=== PATIENT | male | born 1950 | race Caucasian/White ===

== ENCOUNTER 2022-11-30 09:19 | Outpatient (OUT) | payer MEDICARE, SELFPAY ==
[2022-11-30 09:55] LABS: Basophils Absolute Auto 0.1 10^3/uL (0.0-0.1); Basophils Percent Auto 0.8 % (0.2-2.0); Eosinophils Absolute Auto 0.5 10^3/uL (0.0-0.7); Hematocrit 38.9 % (42.0-54.0); Hemoglobin 13.5 g/dL (14.0-18.0); Immature Granulocytes Abs Auto 0.02 10^3/uL (0.00-0.03); Immature Granulocytes Pct Auto 0.3 % (0.0-0.5); Lymphocytes Percent Auto 29.8 % (20.5-60.0); Mean Corpuscular HGB Conc 34.7 g/dL (29.9-35.2); Mean Corpuscular Hemoglobin 32.2 pg (25.9-34.0); Mean Corpuscular Volume 92.8 fL (80.0-94.0); Mean Platelet Volume 9.8 fL (9.5-13.5); Monocytes Absolute Auto 0.7 10^3/uL (0.3-0.8); Monocytes Percent Auto 11.3 % (1.7-12.0); Neutrophils Absolute Auto 3.3 10^3/uL (1.4-6.5); Neutrophils Percent Auto 50.8 % (43.0-75.0); Platelet Count 226 10^3/uL (150-450); Red Blood Count 4.19 10^6/uL (4.70-6.10); Red Cell Distribution Width 12.8 % (11.0-15.0); White Blood Count 6.6 10^3/uL (4.0-11.0)
[2022-11-30 10:45] LABS: Alanine Aminotransferase 30 U/L (16-63); Albumin Globulin Ratio 0.9; Albumin Level 3.3 g/dL (3.4-5.0); Alkaline Phosphatase 73 U/L (46-116); Anion Gap 11.2; Aspartate Amino Transferase 23 U/L (15-37); BUN Creatinine Ratio 18.8; Calcium 8.9 mg/dL (8.5-10.1); Carbon Dioxide 28.4 mmol/L (21.0-32.0); Chloride 106 mmol/L (98-107); Chol HDL Ratio 2.2; Cholesterol 126 mg/dL (<=200); Estimated GFR (African America >60 (>=60); Estimated GFR (Non-African Ame >60 (>=60); Globulin 3.5 g/dL; Glucose 99 mg/dL (74-106); HDL Cholesterol 56 mg/dL (40-60); LDL Cholesterol Calculated 57.6 mg/dL; Potassium 3.6 mmol/L (3.5-5.1); Sodium 142 mmol/L (136-145); Total Protein 6.8 g/dL (6.4-8.2); Triglycerides 62 mg/dL (<=150); VLDL CHOLESTEROL 12.4 mg/dL
[2022-11-30 11:10] LABS: Prostate Specific Antigen Scrn 0.56 ng/mL (<=4.00)
== END 2022-11-30 09:20 | disposition home or self-care (01) ==
LOC: LAB 09:24
PROVIDERS: PCP Family Medicine; Visit Provider Family Medicine
DX: I10 Essential (primary) hypertension (principal); I25.10 Atherosclerotic heart disease of native coronary artery without angina pectoris; Z12.5 Encounter for screening for malignant neoplasm of prostate
CPT/HCPCS: 36415; 80053; 80061; 85025; G0103

== ENCOUNTER 2023-02-10 02:05 | Emergency (ER) | payer MEDICARE, SELFPAY ==
[2023-02-10 02:11] VITALS: BP 174/94; PULSE 81; RESP 16; TEMP 36.7; O2SAT 97
--- NOTE | 2023-02-10 02:44 | PC.NURSE ---
RIGHT HAND HAS LARGE HEMATOMA ON DORSUM ASPECT FROM DIRECT BLOW. PMS INTACT . SOME BLANCHING ON HAND NOTED BUT GOOD CAP REFILL FULL SENSATION AND RADIAL PULSE
--- NOTE | 2023-02-10 02:46 | XR_ITS ---
[facility] [place] [id number] Patient Name: BRYANT FOREMAN MRN: [id number] date: 1950 Sex: M Assigned Patient Location: ER Current Patient Location: Accession/Order Number: [id number] Exam Date: 02/10/2023 03:15 Report Date: 02/10/2023 04:03 At the request of: MAN CASTORENA Procedure: XR hand RT 2V EXAM: XR hand RT 2V HISTORY: injury COMPARISON: None. TECHNIQUE: 2 views of the right hand were obtained. FINDINGS: No acute fracture or dislocation is seen. There are scattered degenerative changes. There is marked soft tissue edema at the dorsal aspect of the right hand. No soft tissue air is seen. XR/XR hand RT 2V IMPRESSION: 1. Marked soft tissue edema at the dorsal aspect of the right hand with no acute osseous abnormality or soft tissue air seen. Electronically authenticated by: Soo AGUIAR Date: 02/10/2023 04:03
--- NOTE | 2023-02-10 02:46 | ED.UPPEXIN1 ---
HPI - Extremity Injury (Upper) General Chief Complaint: Extremity Injury, Upper Stated Complaint: ABCESS ON RIGHT HAND Time Seen by Provider: 02/10/23 02:42 Source: patient Mode of arrival: walk-in Limitations: no limitations History of Present Illness HPI narrative: patient states he bump the back of his hand about 10 days ago. Developed acute swelling of the dorsum of his hand. 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 States he came in tonight because the hand woke him up and people have been telling him he needed to get it drained. No fever or chills. He takes plavix complaint: injury to: Reports hand Related Data Home Medications Medication Instructions Recorded Confirmed amlodipine 10 mg tablet mg 02/10/23 atorvastatin 80 mg tablet mg 02/10/23 carvedilol 25 mg tablet mg 02/10/23 clopidogrel 75 mg tablet mg 02/10/23 losartan 100 mg tablet mg 02/10/23 Allergies Allergy/AdvReac Type Severity Reaction Status Date / Time No Known Drug Allergies Allergy Verified 02/10/23 02:17 Review of Systems ROS Status of ROS 10 or more systems reviewed and unremarkable except as noted in history and below [facility] Social History Smoking status: Never smoker Exam Constitutional Vital Signs, click to edit/add: Last Vital Signs Temp 98.0 F 02/10/23 02:11 Pulse 81 02/10/23 02:11 Resp 16 02/10/23 02:11 BP 174/94 H 02/10/23 02:11 Pulse Ox 97 02/10/23 02:11 O2 Del Method Room Air 02/10/23 02:11 Common normals: no apparent distress, average body habitus, oriented x3, no limitations, healthy appearing, alert and well nourished Eye Common normals: EOMs intact bilaterally and conjunctivae normal Respiratory Common normals: normal respiratory effort, no retractions and no use of accessory muscles Cardio Common normals: regular rate, regular rhythm, S1 normal heart sound and S2 normal heart sound Extremity Other: dorsum right hand with large brian ball hematoma overlying the dorsum of the hand. Has faint ecchymosis of his fingers and even his wrist. Site is not warm and only mildly tender. FROM of fingers without discomfort Neuro Common normals: oriented x3, CN's II-XII intact bilaterally, moves all extremities and no focal motor deficits Psych Appearance: grossly normal Course Vital Signs Vital signs: Vital Signs Temperature 98.0 F 02/10/23 02:11 Pulse Rate 81 02/10/23 02:11 Respiratory Rate 16 02/10/23 02:11 Blood Pressure 174/94 H 02/10/23 02:11 Pulse Oximetry 97 02/10/23 02:11 Oxygen Delivery Method Room Air 02/10/23 02:11 Temperature 98.0 F 02/10/23 02:11 Pulse Rate 81 02/10/23 02:11 Respiratory Rate 16 02/10/23 02:11 Blood Pressure 174/94 H 02/10/23 02:11 Pulse Oximetry 97 02/10/23 02:11 Oxygen Delivery Method Room Air 02/10/23 02:11 MDM - Extremity Injury (Upper) MDM Narrative Medical decision making narrative: patient presents with a large hematoma dorsum of the right hand from injury that occurred 10 days ago. comes in now because people have been telling him he needs to get it drained and tonight the pain woke him up xray is neg. WBC normal and CRP elevated. Patient informed of the diagnosis of hematoma and referred to orthopedics Lab Data Labs: Lab Results 02/10/23 Range/Units 03:00 WBC 8.3 (4.0-11.0) 10^3/uL RBC 4.08 L (4.70-6.10) 10^6/uL Hgb 13.2 L (14.0-18.0) g/dL Hct 38.3 L (42.0-54.0) % MCV 93.9 (80.0-94.0) fL MCH 32.4 (25.9-34.0) pg MCHC 34.5 (29.9-35.2) g/dL RDW 13.0 (11.0-15.0) % Plt Count 253 (150-450) 10^3/uL MPV 9.7 (9.5-13.5) fL Neut % (Auto) 48.3 (43.0-75.0) % Lymph % (Auto) 34.3 (20.5-60.0) % [place] % (Auto) 11.4 (1.7-12.0) % Eos % (Auto) 5.1 (0.9-7.0) % Baso % (Auto) 0.8 (0.2-2.0) % Neut # (Auto) 4.0 (1.4-6.5) 10^3/uL Lymph # (Auto) 2.8 (1.2-3.8) 10^3/uL [place] # (Auto) 0.9 H (0.3-0.8) 10^3/uL Eos # (Auto) 0.4 (0.0-0.7) 10^3/uL Baso # (Auto) 0.1 (0.0-0.1) 10^3/uL Abs Immat Gran (auto) 0.01 (0.00-0.03) 10^3/uL Imm/Tot Granulo (auto) 0.1 (0.0-0.5) % Sodium 142 (136-145) mmol/L Potassium 3.2 L (3.5-5.1) mmol/L Chloride 106 (98-107) mmol/L Carbon Dioxide 27.6 (21.0-32.0) mmol/L Anion Gap 11.6 BUN 18.0 (7.0-18.0) mg/dL Creatinine 1.16 (0.70-1.30) mg/dL Est GFR ( Amer) >60 (>=60) Est GFR (Non-Af Amer) >60 (>=60) BUN/Creatinine Ratio 15.5 Glucose 107 H (74-106) mg/dL Calcium 8.9 (8.5-10.1) mg/dL C-Reactive Protein 0.94 H (<=0.50) mg/dL Discharge Plan Discharge Chief Complaint: Extremity Injury, Upper Clinical Impression: Hematoma of right hand Patient Disposition: Home, Self-Care Prescriptions / Home Meds: No Action atorvastatin 80 mg tablet carvedilol 25 mg tablet clopidogrel 75 mg tablet amlodipine 10 mg tablet losartan 100 mg tablet Instructions: Hematoma (ED) Additional Instructions: follow up with Dr Fitzpatrick saturday Stand Alone Forms: Portal Instructions Referrals: Patsy Escalante MD [Primary Care Provider] - 1 week
[2023-02-10 03:11] LABS: Basophils Absolute Auto 0.1 10^3/uL (0.0-0.1); Basophils Percent Auto 0.8 % (0.2-2.0); Eosinophils Absolute Auto 0.4 10^3/uL (0.0-0.7); Eosinophils Percent Auto 5.1 % (0.9-7.0); Hematocrit 38.3 % (42.0-54.0); Hemoglobin 13.2 g/dL (14.0-18.0); Immature Granulocytes Abs Auto 0.01 10^3/uL (0.00-0.03); Immature Granulocytes Pct Auto 0.1 % (0.0-0.5); Lymphocytes Absolute Auto 2.8 10^3/uL (1.2-3.8); Lymphocytes Percent Auto 34.3 % (20.5-60.0); Mean Corpuscular HGB Conc 34.5 g/dL (29.9-35.2); Mean Corpuscular Hemoglobin 32.4 pg (25.9-34.0); Mean Corpuscular Volume 93.9 fL (80.0-94.0); Mean Platelet Volume 9.7 fL (9.5-13.5); Monocytes Absolute Auto 0.9 10^3/uL (0.3-0.8); Monocytes Percent Auto 11.4 % (1.7-12.0); Neutrophils Percent Auto 48.3 % (43.0-75.0); Platelet Count 253 10^3/uL (150-450); Red Blood Count 4.08 10^6/uL (4.70-6.10); White Blood Count 8.3 10^3/uL (4.0-11.0)
[2023-02-10 03:26] LABS: Anion Gap 11.6; BUN Creatinine Ratio 15.5; Calcium 8.9 mg/dL (8.5-10.1); Carbon Dioxide 27.6 mmol/L (21.0-32.0); Chloride 106 mmol/L (98-107); Estimated GFR (African America >60 (>=60); Estimated GFR (Non-African Ame >60 (>=60); Glucose 107 mg/dL (74-106); Potassium 3.2 mmol/L (3.5-5.1); Sodium 142 mmol/L (136-145)
[2023-02-10 03:27] LABS: C Reactive Protein 0.94 mg/dL (<=0.50)
[2023-02-10 04:02] VITALS: BP 156/90; PULSE 73; RESP 16; O2SAT 98
== END 2023-02-10 04:05 | disposition home or self-care (01) ==
PROVIDERS: Emergency Provider Internal Medicine; PCP Family Medicine
DX: S60.221A Contusion of right hand, initial encounter (principal); W22.8XXA Striking against or struck by other objects, initial encounter; Z79.02 Long term (current) use of antithrombotics/antiplatelets; Z79.899 Other long term (current) drug therapy
CPT/HCPCS: 36415; 73120; 80048; 85025; 86140; 99284

== ENCOUNTER 2023-11-29 09:11 | Outpatient (OUT) | payer MEDICARE, SELFPAY ==
--- OUTSIDE RECORDS SUMMARY | 2023-11-29 09:17 | XMS_ITS | CCD ---
Author Organization [facility] Care Team Providers Care Client Service Associate Name Role Phone DR CANDY ESCALANTE Admitting Unavailable TAWANA, DR GUPTA Attending Unavailable TAWANA, DR PATSY San[facility] Unavailable TAWANA, DR PATSY Sanabria Consulting Unavailable TAWANA, DR PATSY [facility] Unavailable JOSE C, DR AYALA Admitting Unavailable JOSE C, DR AYALA Attending Unavailable JOSEC, DR AYALA Consulting Unavailable KING, DR ZHOU So Consulting Unavailable Ptasy Escalante Unavailable BHASKAR CARSON Attending Unavailable BHASKAR CARSON Attending Unavailable Medications Current Medications Medication Drug Class(es) Dates Sig (Normalized) Sig (Original) amLODIPine 10 mg oral tablet (2 sources) Dihydropyridine Calcium Channel Tan Start: 06-07-2023 take 10 mg by mouth once daily Amlodipine Active 10 MG PO Daily June 07, 2023 12:00am take 1 tablet by carl th every twenty-four hours amLODIPine Besylate 10 MG 1 tablet Orall y Once a day Active Aspir-81 (1 source) Aspir-81 Active aspirin 81 mg oral tablet (1 source) Platelet Aggregation Inhibitor, Nonsteroidal Anti-inflammatory Drug Start: 4 take 81 mg by mouth once daily Aspirin Active 81 MG PO Daily June 07, 2023 12:00am atorvastatin 80 mg oral tablet (3 sources) HMG-CoA Reductase Inhibitor Start: 4 End: 4 take 80 mg by mouth once daily Atorvastatin Active 80 MG PO Daily May 30, 2023 9:42pm Atorvastatin Benji cium 80 MG TAKE 1 TABLET DAILY for 90 Active carvedilol 25 mg oral tablet (2 sources) alpha-Adrenergic Tan, beta-Adrenergic Tan Start: 06-07-2023 take 25 mg by mouth twice daily Carvedilol Active 25 MG PO Twice daily June 07, 2023 12:00am take 1 tablet by carl th every twelve hours Carvedilol 25 MG 1 tablet with food Oral ly Twice a day Active clopidogrel 75 mg oral tablet (2 sources) P2Y12 Platelet Inhibitor Start: 06-07-2023 take 75 mg by mouth once daily Clopidogrel Active 75 MG PO Daily June 07, 2023 12:00am take 1 tablet by carl th every twenty-four hours Clopidogrel Bisulfate 75 MG 1 tablet Orally Once a day Active Fish Oils (1 source) take 1 capsule by mouth once daily Fish Oil 1000 MG 1 capsule Orally Once a day Active losartan potassium 100 mg oral tablet (2 sources) Angiotensin 2 Receptor Tan Start: 06-07-2023 take 100 mg by mouth once daily Losartan Active 100 MG PO Daily June 07, 2023 12:00am take 1 tablet by carl th every twenty-four hours Losartan Potassium 100 MG 1 tablet Orally Once a day Active Lecanto-3 Fatty Acids (1 source) Start: 06-07-2023 take 1000 mg by mout h once daily Lecanto-3 Fatty Acids Active 1000 MG PO Daily June 07, 2023 12:00am Problems Active Problems Problem Classification Problem Date Documented Date Episodic/Chronic Acute myocardial infarction (2 sources) Acute myocardial infarction, unspecified; Translations: [Acute myocardial infarction, unspecified] Onset: 08-01-2022 Chronic Coronary atherosclerosis and other heart disease (10 sources) Atherosclerotic heart disease of [place] coronary artery without angina pectoris; Translations: [Silent myocardial ischemia] Onset: 08-03-2021 Chronic Disorders of lipid metabolism (2 sources) Mixed hyperlipidemia; Translations: [Mixed hyperlipidemia] Onset: 08-01-2022 Chronic Essential hypertension (9 sources) Essential (primary) hypertension; Translations: [Essential hypertension] Onset: 12-08-2021 Chronic Other screening for suspected conditions (not mental disorders or infectious disease) (2 sources) Encounter for screening for malignant neoplasm of prostate; Translations: [ENC SCREEN MALIG NEOPLASM PROSTATE] Onset: 12-12-2021 Episodic Residual codes; unclassified (1 source) Edema; Translations: [Localized edema] Episodic Past or Other Problems Problem Classification Problem Date Documented Da te Episodic/Chronic Residual codes; unclassified (2 sources) Localized edema; Translations: [Localized edema] Onset: 08-01-2022 Episodic Results Test Name Value Interpretation Reference Range Facil ity Office Visiton 07-24-2023 Follow-up visit [id number] Bryant Foreman 1950 M Date Provider Department Center 07/24/2023 BHASKAR MARTINEZ [facility] Family History Problem Relation Age of Onset Coronary artery disease Other Diabetes Other Family Status - Relation Status Age at Other Level of Service:49687 PA OFFICE/OUTPATIENT ESTABLISHED LOW MDM 20 MIN Reason for Visit and Comments: Follow-up [104358] - Yearly follow up Normal [facility] Office Visiton 08-01-2022 Follow-up visit [id number] Bryant Foreman 1950 M Date Provider Department Center 08/01/2022 BHASKAR MARTINEZ Hos Family History Problem Relation Age of Onset Coronary artery disease Other Diabetes Other Family Status - Relation Status Age at Other Level of Service:76876 PA OFFICE/OUTPATIENT ESTABLISHED MOD MDM 30-39 MIN Normal [facility] CBC AUTO DIFFon 12-08-2021 BASO # 0.1 103/ul Normal 0.0-0.1 [facility] Comment on above: Performed By: #### C BC #### [facility] [address] [place] [address] Dr. Rajat Arora Basophils/100 WBC (Bld) 0.6 % Normal 0.2-2.0 [facility] Comment on above: Performed By: #### C BC #### [facility] [address] [place] [address] Dr. Rajat Arora EO # 0.4 103/ul Normal 0.0-0.7 [facility] Comment on above: Performed By: #### C BC #### [facility] [address] [place] [address] Dr. Rajat Arora Eosinophils/100 WBC (Bld) 4.8 % Normal 0.9-7.0 [facility] Comment on above: Performed By: #### C BC #### [facility] [address] [place] [address] Dr. Rajat Arora Erythrocyte distribution width (RBC) [Ratio] 13.0 % Normal 11.0-15.0 [facility] Comment on above: Performed By: #### C BC #### [facility] [address] [place] [address] Dr. Rajat Arora Hematocrit (Bld) [Volume fraction] 40.1 % Critically low 42.0-54.0 [facility] Comment on above: Performed By: #### C BC #### [facility] [address] [place] [address] Dr. Rajat Arora Hemoglobin (Bld) [Mass/Vol] 14.1 g/dL Normal 14.0-18.0 [facility] Comment on above: Performed By: #### C BC #### [facility] [address] [place] [address] Dr. Rajat Arora IG # 0.02 10e3/ul Normal 0.00-0.03 [facility] Comment on above: Performed By: #### C BC #### [facility] [address] [place] [address] Dr. Rajat Arora IG % 0.3 % Normal 0.0-0.5 [facility] Comment on above: Performed By: #### C BC #### [facility] [address] [place] [address] Dr. Rajat Arora LYMPH # 2.2 103/ul Normal 1.2-3.8 [facility] Comment on above: Performed By: #### C BC #### [facility] [address] [place] [address] Dr. Rajat Arora Lymphocytes/100 WBC (Bld) 27.3 % Normal 20.5-60.0 [facility] Comment on above: Performed By: #### C BC #### [facility] [address] [place] [address] Dr. Rajat Arora MANUAL DIFF REQ NO Normal [facility] Comment on above: Performed By: #### C BC #### [facility] [address] [place] [address] Dr. Rajat Arora MCH (RBC) [Entitic mass] 32.7 pg Normal 25.9-34.0 [facility] Comment on above: Performed By: #### C BC #### [facility] [address] [place] [address] Dr. Rajat Arora MCHC (RBC) [Mass/Vol] 35.2 g/dL Normal 29.9-35.2 [facility] Comment on above: Performed By: #### C BC #### [facility] [address] [place] [address] Dr. Rajat Arora MCV (RBC) [Entitic vol] 93.0 fL Normal 80.0-94.0 [facility] Comment on above: Performed By: #### C BC #### [facility] [address] [place] [address] Dr. Rajat Arora MONO # 0.7 103/ul Normal 0.3-0.8 [facility] Comment on above: Performed By: #### C BC #### [facility] [address] [place] [address] Dr. Rajat Arora Monocytes/100 WBC (Bld) 9.1 % Normal 1.7-12.0 [facility] Comment on above: Performed By: #### C BC #### [facility] [address] [place] [address] Dr. Rajat Arora NEUT # 4.6 103/ul Normal 1.4-6.5 [facility] Comment on above: Performed By: #### C BC #### [facility] [address] [place] [address] Dr. Rajat Arora Neutrophils/100 WBC (Bld) 57.9 % Normal 43.0-75.0 [facility] Comment on above: Performed By: #### C BC #### [facility] [address] [place] [address] Dr. Rajat Arora Platelet mean volume (Bld) [Entitic vol] 9.7 fL Normal 9.5-13.5 [facility] Comment on above: Performed By: #### C BC #### [facility] [address] [place] [address] Dr. Rajat Arora PLT 236 103/ul Normal 150-450 [facility] Comment on above: Performed By: #### C BC #### [facility] [address] [place] [address] Dr. Rajat Arora RBC 4.31 106/ul Critically low 4.70-6.10 [facility] Comment on above: Performed By: #### C BC #### [facility] [address] [address] [address] Rajat Arora WBC 8.0 103/ul Normal 4.0-11.0 [facility] Comment on above: Performed By: #### C BC #### [facility] [address] [address] [address] Rajat Arora LIPID PROFILEon 12-08-2021 CHOL-HDL RATIO NORM SEE BELOW Normal [facility] Comment on above: Result Comment: 3.3 - 4.4 LOW RISK 4.4 - 7.1 AVERAGE RISK 7.1 - 11.0 MODERATE RISK >11.0 HIGH RISK Performed By: #### L IPID, CMP #### [facility] [address] [place] [address] Dr. Rajat Arora Cholesterol [Mass/Vol] 132 mg/dL Normal <=200 [facility] Comment on above: Performed By: #### L IPID, CMP #### [facility] [address] [place] [address] Dr. Rajat Arora Cholesterol in HDL [Mass/Vol] 56 mg/dL Normal 40-60 [facility] Comment on above: Performed By: #### L IPID, CMP #### [facility] [address] [place] [address] Dr. Rajat Arora Cholesterol in LDL [Mass/Vol] 61.2 mg/dL Normal [facility] Comment on above: Performed By: #### L IPID, CMP #### [facility] [address] [place] [address] Dr. Rajat Arora Cholesterol.total/ Cholesterol in HDL [Mass ratio] 2.4 {ratio} Normal [facility] Comment on above: Performed By: #### L IPID, CMP #### [facility] [address] [place] [address] Dr. Rajat Arora HDL NORMAL > or = 60 mg/dl - LOW CARDIOVASCULAR RISK <40 mg/dl - HIGH CARDIOVASCULAR RISK Normal [facility] Comment on above: Performed By: #### L IPID, CMP #### [facility] [address] [place] [address] Dr. Rajat Arora LDL CALC NORMAL SEE BELOW Normal [facility] Comment on above: Result Comment: <100 mg/dl OPTIMAL 100 - 129 mg/dl NEAR OR ABOVE OPTIMAL 130 - 159 mg/dl BORDERLINE HIGH 160 - 189 mg/dl HIGH >190 mg/dl VERY HIGH Performed By: #### L IPID, CMP #### [facility] [address] [place] [address] Dr. Rajat Arora Triglyceride [Mass/Vol] 74 mg/dL Normal <=150 [facility] Comment on above: Performed By: #### L IPID, CMP #### [facility] [address] [place] [address] Dr. Rajat Arora VLDL CALC 14.8 mg/dL Normal [facility] Comment on above: Performed By: #### L IPID, CMP #### [facility] [address] [place] [address] Dr. Rajat Arora PROF 14(COMP METB)on 022 Albumin [Mass/Vol] 3.5 g/dL Normal 3.4-5.0 [facility] Comment on above: Performed By: #### L IPID, CMP #### [facility] [address] [place] [address] Dr. Rajat Arora Albumin/Globulin [Mass ratio] 1.0 {ratio} Normal [facility] Comment on above: Performed By: #### L IPID, CMP #### [facility] [address] [place] [address] Dr. Rajat Arora ALP [Catalytic activity/Vol] 88 U/L Normal 46-116 [facility] Comment on above: Performed By: #### L IPID, CMP #### [facility] [address] [place] [address] Dr. Rajat Arora ALT [Catalytic activity/Vol] 37 U/L Normal 16-63 [facility] Comment on above: Performed By: #### L IPID, CMP #### [facility] [address] [place] [address] Dr. Rajat Arora Anion gap [Moles/Vol] 8.1 mmol/L Normal [facility] Comment on above: Performed By: #### L IPID, CMP #### [facility] [address] [place] [address] Dr. Rajat Arora AST [Catalytic activity/Vol] 21 U/L Normal 15-37 [facility] Comment on above: Performed By: #### L IPID, CMP #### [facility] [address] [place] [address] Dr. Rajat Arora Bilirubin [Mass/Vol] 0.9 mg/dL Normal 0.2-1.0 [facility] Comment on above: Performed By: #### L IPID, CMP #### [facility] [address] [place] [address] Dr. Rajat Arora Calcium [Mass/Vol] 8.7 mg/dL Normal 8.5-10.1 [facility] Comment on above: Performed By: #### L IPID, CMP #### [facility] [address] [place] [address] Dr. Rajat Arora Chloride [Moles/Vol] 107 mmol/L Normal 98-107 [facility] Comment on above: Performed By: #### L IPID, CMP #### [facility] [address] [place] [address] Dr. Rajat Arora CO2 [Moles/Vol] 29.5 mmol/L Normal 21.0-32.0 [facility] Comment on above: Performed By: #### L IPID, CMP #### [facility] [address] [place] [address] Dr. Rajat Arora Creatinine [Mass/Vol] 1.01 mg/dL Normal 0.70-1.30 [facility] Comment on above: Performed By: #### L IPID, CMP #### [facility] [address] [place] [address] Dr. Rajat Arora EGFR-AF ICELANDIC >60 Normal >=60 [facility] Comment on above: Performed By: #### L IPID, CMP #### [facility] [address] [place] [address] Dr. Rajat Arora EGFR-NON AF ICELANDIC >60 Normal >=60 [facility] Comment on above: Performed By: #### L IPID, CMP #### [facility] [address] [place] [address] Dr. Rajat Arora Globulin (S) [Mass/Vol] 3.6 g/dL Normal [facility] Comment on above: Performed By: #### L IPID, CMP #### [facility] [address] [place] [address] Dr. Rajat Arora Glucose [Mass/Vol] 113 mg/dL Critically high 74-106 [facility] Comment on above: Performed By: #### L IPID, CMP #### [facility] [address] [place] [address] Dr. Rajat Arora Potassium [Moles/Vol] 3.6 mmol/L Normal 3.5-5.1 [facility] Comment on above: Performed By: #### L IPID, CMP #### [facility] [address] [place] [address] Dr. Rajat Arora Protein [Mass/Vol] 7.1 g/dL Normal 6.4-8.2 [facility] Comment on above: Performed By: #### L IPID, CMP #### [facility] [address] [place] [address] Dr. Rajat Arora Sodium [Moles/Vol] 141 mmol/L Normal 136-145 [facility] Comment on above: Performed By: #### L IPID, CMP #### [facility] [address] [place] [address] Dr. Rajat Arora Urea nitrogen [Mass/Vol] 15.0 mg/dL Normal 7.0-18.0 [facility] Comment on above: Performed By: #### L IPID, CMP #### [facility] [address] [place] [address] Dr. Rajat Arora Urea nitrogen/Creatinin e [Mass ratio] 14.9 mg/mg Normal [facility] Comment on above: Performed By: #### L IPID, CMP #### [facility] [address] [address] [address] 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 Admission #: [id number] Family : Order #: [id number] CLICK HERE TO VIEW EXAM RADIOLOGY REPORT PROCEDURE: RADIONUCLIDE IMAGING STRESS/REST MULTI COMPARISON: None. INDICATIONS: Chest pain, silent myocardial ischemia TECHNIQUE: Exam Description: Stress/Rest one day protocol gated SPECT Rest Imagin.8 mCi Tc-99m Cardiolite IV on 08/03/2021 Stress Imaging 30.3 mCi Tc-99m Cardiolite IV on 08/03/2021 Exercise Protocol: Benji Heart Rate (bpm): Rest: 62 Max: 106 PMHR: 70 Blood Pressure: Rest: 150/82 Max: 182/90 Exercise Time: Minutes: 6 Seconds: 00 Stage Reached: Stage: 2 Mets 7.0 Symptoms: Rest and peak stress ECG findings were non-diagnostic and the exercise portion of the study was Non-diagnostic per attending physician Dr. Victor Hugo eLi . For more details please see separate cardiac stress test report. FINDINGS: QUALITY OF STUDY: Excellent. PERFUSION DEFECT: None. LOCATION: N/A SIZE: N/A. SEVERITY: N/A. TYPE: N/A. WALL MOTION: Normal. LV SIZE: Normal. 101 mL. TID / TCD: None; 1.0 LVEF: Normal. Calculated EF 65%. SUMMARY: Myocardial perfusion imaging study is NORMAL. CONCLUSION: 1. Normal nuclear medicine myocardial perfusion scan. Dictated by: Zhou Dubon M.D. on 08/04/2021 at 09:38 Approved by: Zhou Dubon M.D. on 08/04/2021 at 09:[address] [facility] Coding Summary.on 07-28-2020 Coding Summary. CD:[id number] Gh0bWw+PGhlYWQ+PE1FV TJgU38apFLstZ7LY3uHH J4PPEYCMSJDWH1QQY6vh HW1DUxlM9FarmKb JgxjoRPlGE33AUn7HXQ0 iYdpSExbyD2qkNKjT1u5 JyVqOG27uQ70FHlvPANc JdG3SnQvludbyKHy S1nzTxFhdWNgEmt+PHRh YmxlIHdpZHRoPScxMDAl DwRjvSmoOM5fNa8oABRn LWNvbGxhcHNlOiBj e2ntNQEiHNegEI6mgEgu B2ZcuDN5UGOkh7v5Iy52 dHI+KKJfSIB5eImsALjp b884MbPjk4tfZZM4 bNOtBVcyHYG1I31qy5Y1 MBClTQOgWIM4uCY1hN8t gMsvcfcvE5HmqZKpDbQ2 BOY7dPXkfR2itPao wlumoS4eOul+J58PPW1F QPVRQZ8VXzt2D7YcBoxk dHI+HJ98MHHhHX40uQFx vOPop8bqlIs9NgMp ZKQaNSQ1fMwrRAiit7Zu XFCgW02nbFEfv9X4MSQv pNdezWDcJyGkoIC1xR8d EMyuguiyc2cliani Jxiuw0zbxj25wN18M66k KJiwAENxYUI5OUEnWKIq nNldey2xbR5cHy7+IDxj e1zds5zuuWw5AaMx BVHeqcNzyKueHIB1p7Wc Iw09U9WjgCmip5TbYcb7 jo21jVIut6N8lQZ7MXfd SFOnuR0qPNywCoY7 WFPkKvBvlO43jRXzCHoi Nz9zlVgtkCbzQZ7cDZFf bwlzKZQpsJ3qXLOjrVTy sWlcWZ3vLALcsksr e812TrJvHGA3CRTygNWe O7GxiP0qRkTqFOAkKRMn G2BzvRKnHGgtC969SNng BbF0YVPpqkPfO0Lh ECOhgKonEcJ2b2O3Fz7A v3WcukpfRCB9CDexPIY1 JiC6OqOlBqM2A5UeKlo6 YFIshYrlPK7kV1En TYWdscdyhlljnVM8GUDf OIBelO51dHBgITzdYi2s o1P3r339QPPhOJWifM86 Un7rsHhmNVKaxZOS yM0ilataq4tkpqvdBaNw JOCbCOt1GFw0QKLaxVmx ThUhSBV2JsZ5UVX6kMTu hJ8rmBvswwcpzY1u Oyc+Y08mdK0kSTD2QBT2 drcgKZJyenCdHR83XH49 H5VnEnuolCXehSS+PGRp ltQzyGrtTX0yAuHw b3hyg7LjBUceP2GjQDCa OXgfRfm4SMBcMRQ4cAJ0 nY2ySQHlFCxha2P6yWN3 B0KalmBarq8pe1ow BZPmHNwuU48imNQyy9Y4 HUTlrMU8HRSjmZbqUlZg oZ40Gie+IKYxaKvwb1Oj Xmydl4fnk0aovUr1 IjMwJSIgdmFsaWduPSJ0 r1KlKj48U98tTUieFCGo PDSvJDIhQCNqcMvmux8n kE7vYj8+PGNvbCB3 lMG8tC1uWGMpQzR6JDko U839GgJqnUFtWazhp3ru a5bfqKd0QoTjVLEcudVg cZcnVGK5j2JuLo77 G99sHWxzUNRlPRPxVTYx EYVblOppye2tbX4uGm9+ OZ0nm8jhsu21yX47dLO+ UANrWWJ6pCyqVDne RWKzqO5aYXtpQhH5EYZd LdSyjK14dSGxZYzwVf2r iSqoxJtzTO0dSLXgvcqg u583HyIwa3yaDLXr bGIkOHeqWOU4Z92lg0H5 AFTtCKJuQCI0yNW7cQ4i bGlnbjogbGVmdDsgdmVy rDioJFeiFZqqY545 IHRvcDsnPlBhdGllbnQg BtErLXs8D5BaGal6CPIf eVamLT0kwKPkPFdmAb6t bLwapEtjDS1aBTYy euvjb621YaIej3nhOZYx lPCpPMmeBAU6R56je7U6 QSSyBFNbUJV6jDY5gN7z bGlnbjogbGVmdDsg nzNbqBkhEOdyUEvuR432 IHRvcDsnPkJpcnRoIERh qEJ2ZV79MK40iTKvt4H3 cGD3M1GiJKAhnqxs tivcjIJ5HIAhODUcvM08 Fa7xnSjhUt7vUBKbYVD3 GHBrnTYgQ8XtcB8nAbPc TDIxMSMjJ5QeuBUx FOeyD069NHawGyX3ZSLy kxTeF0FeBORjkAfuVlN0 x8J3Uf7OJ0H0KQ93WI27 mGTns6E2qTE8Z6Jx AAEzjzeqllcyxZS0RLPn RXEkeY94Tl4zxKlcXf0m FKTzJWG7YGLacMIvJ5Yc lU7iJlNwXKWrGFYf K9HchTThIKtdR752MYhi JaI9CCEyosGtK2SeHABm qFuiHnX1n2K0Yy9CLLe1 ZG15RW45uWJtx5J7 lGR2Z4MiXBWyxsfmfoox lYM8DSTkKFEsjW66Pg4i iJtyQy7oKQWhSAV9KNNw dGMdT2JagQ7nHoQm YPYoFXPbR5XtrMFvRUdg H029RUvnGsI3QZHkloEo Z8HoIPGpcKxmYzL3k9H7 Nd7IFKFbTE71EWJ0 gTI6MA89YD04S8MsIxsh dGFibGU+PHRhYmxlIHdp ZHRoPScxMDAlJyBzdHls WV4mKb8tDSMyQNSv hEwdpOTuZuNbv9bhWYYm SEgvUW0mjUvkG4DxvFP4 JFFvw6r4Vb03M19eX4Qx dXA+AGSpwEQ4oVJ1 iW1gFdLsOmG6OWqpY780 SqNgiMBzHajvc2fho4ye dMa9LoB9FUTurdBqlEih LFV5h1EsMf09N83p IHdpZHRoPSIxNSUiIHZh dGqzpl9mdI6iLx4+PGNv bOJ1jLQ8uS3sErCgWuB8 CHwbG993KzAdmZTy Pzqlo0wts3svxKm4JnEr OAVfhmPzaAonRQP2h0Ik Uc41Y7SkzMdwe6JeAtv8 hv90hZFtj9J8sRH6 J6OtERMfdonkzLTdxMww XH8fCFFnyywlAXIwpD3k LIJiK3j4MrSdIuZ4QDiq E0XlrfY6HFMevHTp UGyvHZL2P20iv9J3ZZAr JRZiFQV0xPS6vK4yhBwh bjogbGVmdDsgdmVydGlj EApjQKyoU491LOLn gBopGCZpkA6tKEHceRAt sVjmQK7kKZThgthvQc3M IfRDJZLNSNCQKT9NSXHE HP23JH06nRDuo5Z2 zEA8P8SjLJAsygmqsqvz gKE5UGViFLTglR43rEJu NSjaIe8lg7K2y819LHCq TVToqQ87Kn5zzItz JYCfrAONjQ5kumsvd5qu rhpuEjPgYJIaHAj5PIv4 JEQufDghNrNbKWQ0HhT2 TME8cAOylN6rtBpr iuutmZ7aAut+MTEvMTUv VKf3IMkthEW+PHRkIHN0 rRvbSRfsHEFwdT0wXSRr H6a6VhKgKbC4OKeh C2OlPNFjbqppNv38tV5g KoJxUyE6TAqqC8QpeqN2 RNUewRJrSCudQJG8Z60d o0M0QZFqSCRjPSC8 tDT3dX2qvIsmgjtqbUTv dDsgdmVydGljYWwtYWxp L164JXXuoKzbRrB4TKcp DMKkQC77PX19bYUp r4L9tJJ5I9BlSRZhjpki kgptlBN0TPLbUTLtrM68 qNSvZFnmNe9wh6V5l662 TXTgISOtnL66Bl0w rGtbBDMmrMDStR7wabet o8phfeoiVbIqYMInYYu1 LQg6AGHtjXibNvMmMPX2 MeZ9GYJ4rEPmeS2y hJgabwjdmQ0gCzn+TWFs ZTwvdGQ+PLLuDMI1pGgz RCgaGFYrsH9iIOWcV1g7 ShOlUyC1VWmcS9Xg IVXiybpoMx83hK3gWrEt DcD7TIstQ7GhzxP0MRWj oSWzJDlsORZ9N54te6Q5 LTQpFLIeUCY4tWL3 zE8ttWqghanloPItzDje syMucLbuKAhyGSxoW701 SAZubFnrLq37lRFhbFcm amE6S6RzVjzysQZ+ UD52VBTcAP57vLCgrUZb r3xtwRi0LbWoGNSoQOH6 vFwnOAazd9NqSAQuA82x vXEic9M2OAYswXuf xWVvHiMpqJE0jZ4oRIda homut0kdlhkoVdbyb0mo vf58bC01T02tQUdrGLCs PSIzMCUiIHZhbGln mm3kpR3kNj6+PGNvbCB3 kZK6gG9uSwUuKcZ4COcz J754BuIibYBfImrop2nt g1rmfOa8DlKpWBYy isAyqDpiSXO9n7WqPc90 O26cQBswVWIuLUMaIPCl WYTilCehrz5szB9cLi6+ EM9qr4uzsl75pD32 dHI+REYaNZW5vEmlOJzm NJOrtX5oJOsnPvO4GHMf KvBocQ43oODpVLsbZo0h tLlznQsgOC4fZKVy veebc897EdIeo5xqYTVw oDBuTIzgNQU9C30mi3P4 AQDvFIVmXHT0iDC6zL7h bGlnbjogbGVmdDsg fuOtrTtlBSdjNQaoU962 VWBxkGtqKaFcbQUxT9bi jzRGFN5zOvtieXU+PHRk YDW5eKwxRLuaMVXg nD7pFEHkB7y3AiPyLgP0 TMuhP1GytpZ2KRWgbMQi JVDxnAGLlZ9tghmxn2nk cjogIzAwMDAwMDt0 GVu5ATGihUjkHvSeDBA5 KpB9SHW0uWAtkO9pfHnf qqfkyA9jJaz+RklOOjwv dGQ+BSLbOXP0dSfe PJuaJAQtqZ4wYBEsG4v7 LqIvHsC7USstV1IisaP0 FLWzoFAvQJFcjDLUnG2f hwcfx7waehcgLfDt SMIjQAl0VQd3REDcyOis VzJfNXP6OzV7GFR0bXAa uA2hkMejsbdgkW7fZej+ TVJOOjwvdGQ+PHRk RAK1lDcuGIdtTQZnxB1y EIOmG1s8IlTnShC6XHdz L4DwbtK8BHAwuDOtHTAp sQGNrC9pomvqn5fz yvfcVvExSMZmCIl1OUi9 PTHynBhjBuAmGJQ2XgX7 IRH7uSUugZ2lwEyrbjkb zU1fTrj+XRM9UEY4 KB21SY55B1XmTcwdhWVz bGU+PHRhYmxlIHdpZHRo ZNqyGPCzSgOqeYvkCN8u Bh3mPNOaXWIdpEnc cHNl (more content not included)... [facility] CRPon 07-19-2020 CRP [Mass/Vol] 0.6 mg/dL Normal <=1.9 [facility] Comment on above: Performed By: #### 2 [id number] #### [facility] [address] [place] [address] Consent for Treatmenton 07-02 Consent for Treatment [id number] #1.00CD:127 Normal [facility] Physician Orderon 07-19-2020 Physician Order [id number] #1.00CD:127 Normal [facility] Platelet Counton 07-19-2020 Platelets (Bld) [#/Vol] 268.0 E9/L Normal 150.0-500.0 [facility] Comment on above: Performed By: #### 2 [id number] #### [facility] [address] [place] [address] Sed Rate Automatedon 021 Sed Rate Automated 9 mm/hr Normal 0-19 [facility] Comment on above: Performed By: #### [id number] #### [facility] Laboratory [address] [place] [address] Vital Signs Date Time Vital Sign Value Performing Clinician Facility 06-11-2023 13:07040 Body height 176.53 cm [facility] 06-11-2023 13:070400 Body mass index (BMI) [Ratio] 30.7 kg/m2 [facility] 06-11-2023 13:07040 Body weight 95.76 kg [facility] 06-11-2023 13:07-0400 Diastolic blood pressure 68 mm[Hg] [facility] 06-11-2023 13:07-0400 Heart rate 65 /min [facility] 06-11-2023 13:07-0400 Systolic blood pressure 115 mm[Hg] [facility] 06-19-2022 14:30-0400 Body height 176.53 cm Patsy Escalante Other [facility] 06-19-2022 14:30-0400 Body mass index (BMI) [Ratio] 30.85 kg/m2 Patsy Escalante Other [facility] 06-19-2022 14:30-0400 Body weight 96.16 kg Patsy Escalante Other [facility] 06-19-2022 14:30-0400 Diastolic blood pressure 74 mm[Hg] Patsy Escalante Other [facility] 06-19-2022 14:30-0400 SaO2% (BldA) [Mass fraction] 97 % Patsy Escalante Other [facility] 06-19-2022 14:30-0400 Systolic blood pressure 124 mm[Hg] Patsy Escalante Other [facility] Other Encounters Encounter Date Encounter Type Care Provider Facility Start: 07-24-2023 End: 07-24-2023 ambulatory [facility] Start: 06-11-2023 End: 06-11-[address] [facility] Work Phone: Start: 06-11-2023 End: 06-11-2023 Patient encounter procedure [facility] Physician [facility] Work Phone: Start: 05-30-2023 Non-patient / Non-visit [facility] Physician [facility] [place] [employer] Work Phone: Start: 08-01-2022 End: 08-01-2022 ambulatory [facility] Start: 06-19-2022 End: 06-19-2022 ambulatory Patsy Escalante Other [facility] Start: 06-19-2022 Office outpatient vi sit 25 minutes Patsy Escalante [facility] Start: 12-08-2021 End: 12-09-[address] CANDY ESCALANTE Facility:[facility] Start: 08-03-2021 End: 08-04-[address] PATSY ESCALANTE Facility:[facility] Procedures Date Procedure Procedure Detail Performing Clinician Start: 12-08-[address] CANDY RUSH Comment on above: Performed By: #### P [facility] #### [facility] [address] [place] [address] Dr. Rajat Arora Immunizations Immunization Date Immunization Notes Care Provider Fa cility 12-25-2022 influenza virus vacc ine, unspecified formulation [facility] 12-21-2021 influenza virus vacc ine, unspecified formulation [facility] 12-13-2020 influenza virus vacc ine, unspecified formulation [facility] 06-07-2020 COVID-19 mRNA, Comir yamil (Pfizer) [facility] 05-16-2020 COVID-19 mRNA, Comir yamil (Pfizer) [facility] 12-15-2019 influenza virus vacc ine, unspecified formulation [facility] 12-16-2018 influenza virus vacc ine, unspecified formulation [facility] 06-24-2018 [facility] influenza virus vacc ine, unspecified formulation [facility] 06-18-2017 [facility] 12-11-2016 influenza virus vacc ine, unspecified formulation [facility] 12-13-2015 tetanus and diphther ia toxoids, adsorbed, preservative free, for adult use (5 Lf of tetanus toxoid and 2 Lf of diphtheria toxoid) [facility] 12-14-2014 tetanus and diphther ia toxoids, adsorbed, preservative free, for adult use (5 Lf of tetanus toxoid and 2 Lf of diphtheria toxoid) [facility] 12-15-2013 tetanus and diphther ia toxoids, adsorbed, preservative free, for adult use (5 Lf of tetanus toxoid and 2 Lf of diphtheria toxoid) [facility] 12-09-2012 tetanus and diphther ia toxoids, adsorbed, preservative free, for adult use (5 Lf of tetanus toxoid and 2 Lf of diphtheria toxoid) [facility] Payers Date Payer Category Payer Medicare [id number] 1958 Unknown [id number] 1950 Unknown [id number] 1950 Unknown [id number] Social History Date Type Detail Facility Unknown if ever smoked [facility] Other Sex Assigned At Sex Assigned At Bir th [facility] Other Start: 1950 Sex Assigned At Male [facility] Clinical Notes 06-19-2022 to 07-24-2023 Note Date & Type Note Facility 07-24-2023 Note Hypertension is unch anged. Continue current treatment regimen. Blood pressure will be reassessed at the next regular appointment. [facility] 07-24-2023 Note Coronary artery dise ase is unchanged. Continue current treatment regimen. Regular aerobic exercise. Continue current medications. Cardiac status will be reassessed in 1 year. [facility] 07-24-2023 Note Lipid abnormalities are unchanged. Very well controlled- liver function normal Lipids will be reassessed annually- sept per PCP [facility] 07-24-2023 Note [facility] CARDIOLOGY PROGR ESS NOTE HPI: Bryant Foreman is a 73 y.o. male here for Follow-up (Yearly follow up ) HPI routine f/U for CAD, silent OK, HTN, and HPL Denied chest pain, shortness of breath, orthopnea, or palpitations Overall states he is feeling very well and denied an activity limiting symptoms Review of Systems Constitutional: Negative. Respiratory: Negative. Cardiovascular: Negative. Neurological: Negative. All other systems reviewed and are negative. Visit Vitals BP 118/60 (BP Location: Left arm, Patient Position: Sitting, BP Cuff Size: Adult) Pulse 66 Resp 12 Ht 1.778 m (5' 10 ) Wt 93.1 kg (205 lb 3.2 oz) SpO2 97% BMI 29.44 kg/m??? Smoking Status Never BSA 2.14 m??? No Known Allergies Medications: Current Outpatient Medications on File Prior to Visit Medication Sig Dispense Refill amLODIPine (Norvasc) 10 mg tablet amlodipine 10 mg tablet aspirin 81 mg EC tablet Take 81 mg by mouth in the morning. atorvastatin (Lipitor) 80 mg tablet atorvastatin 80 mg tablet carvedilol (Coreg) 25 mg tablet Take 25 mg by mouth with breakfast and with evening meal. clopidogrel (Plavix) 75 mg tablet clopidogrel 75 mg tablet losartan (Cozaar) 100 mg tablet losartan 100 mg tablet nitroglycerin (Nitrostat) 0.4 mg SL tablet nitroglycerin 0.4 mg sublingual tablet No current facility-administered medications on file prior to visit. Physical Exam: Constitutional: Appearance: Normal appearance. Without apparent distress HENT: Head: Normocephalic and atraumatic. Nose: Nose normal. Mouth/Throat: Mouth: Mucous membranes are moist. Eyes: Extraocular Movements: Extraocular movements intact. Conjunctiva/sclera: Conjunctivae normal. Neck: Vascular: No JVD. Cardiovascular: Rate and Rhythm: Normal rate and regular rhythm. Pulses: Dorsalis pedis pulses are 3 on the right side and 3on the left side. Posterior tibial pulses are 3 on the right side and 3 on the left side. Heart sounds: Normal heart sounds, S1 normal and S2 normal. Pulmonary: Effort: Pulmonary effort is normal. Breath sounds: Normal breath sounds. Abdominal: General: Bowel sounds are normal. Palpations: Abdomen is soft. Musculoskeletal: General: Normal range of motion. Cervical back: Normal range of motion. Right lower leg: No edema. Left lower leg: No edema. Skin: General: Skin is warm and dry. Capillary Refill: Capillary refill takes less than 2 seconds. Neurological: General: No focal deficit present. Mental Status: he is alert and oriented to person, place, and time. Psychiatric: Mood and Affect: Mood normal. Behavior: Behavior normal. Thought Content: Thought content normal. Judgment: Judgment normal. Labs: Reviewed with pt 02/10/23 CBC stable Renal function normal 11/30/22 CBC stable Renal function normal LFT normal Chol 126, Trig 62, LDL 57.6, HDL 56 Last lab values have been reviewed [facility] Testin06/22/20 echo 12/04/2010 Heart cath/PCI 10/2010 heart cath/PCI Assessment/Plan: Mixed hyperlipidemia Lipid abnormalities are unchanged. Very well controlled- liver function normal Lipids will be reassessed annually- sept per PCP CAD in [place] artery Coronary artery disease is unchanged. Continue current treatment regimen. Regular aerobic exercise. Continue current medications. Cardiac status will be reassessed in 1 year. Benign essential HTN Hypertension is unchanged. Continue current treatment regimen. Blood pressure will be reassessed at the next regular appointment. [facility] 08-01-2022 Note States edema is abou t typical and no worse than usual [facility] 08-01-2022 Note stable [facility] 08-01-2022 Note Lipid abnormalities are well controlled Continue lipitor Liver function normal [facility] 08-01-2022 Note Coronary artery dise ase is stable without any concerning symptoms Continue GDMT- ASA, plavix, coreg and lipitor [facility] 08-01-2022 Note Hypertension is well controlled per Cardiac rehab log Continue amlodipine, coreg and losartan [facility] 08-01-2022 Note [facility]TP CARDIOLOGY PROGR ESS NOTE HPI: Bryant Foreman is a 72 y.o. male here for routine f/U for CAD, silent OK, HTN, and HPL Denied chest pain, shortness of breath, orthopnea, or palpitations Tolerating cardiac rehab well. B/P in cardiac rehab reviewed and remains well controlled per their log. Visit Vitals BP 141/86 (BP Location: Left arm, Patient Position: Sitting) Pulse 59 Ht 1.778 m (5' 10 ) Wt 96.6 kg (213 lb) SpO2 98% BMI 30.56 kg/m??? Smoking Status Never BSA 2.18 m??? No Known Allergies Medications: Current Outpatient Medications on File Prior to Visit Medication Sig Dispense Refill amLODIPine (Norvasc) 10 mg tablet amlodipine 10 mg tablet aspirin 81 mg EC tablet Take 81 mg by mouth in the morning. atorvastatin (Lipitor) 80 mg tablet atorvastatin 80 mg tablet carvedilol (Coreg) 25 mg tablet Take 25 mg by mouth with breakfast and with evening meal. clopidogrel (Plavix) 75 mg tablet clopidogrel 75 mg tablet losartan (Cozaar) 100 mg tablet losartan 100 mg tablet nitroglycerin (Nitrostat) 0.4 mg SL tablet nitroglycerin 0.4 mg sublingual tablet [DISCONTINUED] aspirin 325 mg tablet every other day. [DISCONTINUED] DOCOSAHEXAENOIC ACID ORAL Take by mouth in the morning. No current facility-administered medications on file prior to visit. Physical Exam: Constitutional: Appearance: Normal appearance. Without apparent distress HENT: Head: Normocephalic and atraumatic. Nose: Nose normal. Mouth/Throat: Mouth: Mucous membranes are moist. Eyes: Extraocular Movements: Extraocular movements intact. Conjunctiva/sclera: Conjunctivae normal. Neck: Vascular: No JVD. Cardiovascular: Rate and Rhythm: Normal rate and regular rhythm. Pulses: Dorsalis pedis pulses are 3 on the right side and 3on the left side. Posterior tibial pulses are 3 on the right side and 3 on the left side. Heart sounds: Normal heart sounds, S1 normal and S2 normal. Pulmonary: Effort: Pulmonary effort is normal. Breath sounds: Normal breath sounds. Abdominal: General: Bowel sounds are normal. Palpations: Abdomen is soft. Musculoskeletal: General: Normal range of motion. Cervical back: Normal range of motion. Right lower le-2+ edema. Left lower le-2+ edema. Skin: General: Skin is warm and dry. Capillary Refill: Capillary refill takes less than 2 seconds. Neurological: General: No focal deficit present. Mental Status: alert and oriented to person, place, and time. Psychiatric: Mood and Affect: Mood normal. Behavior: Behavior normal. Thought Content: Thought content normal. Judgment: Judgment normal. Labs: 12/08/21 CBC normal Renal function normal Liver function normal Chol 132, HDL 56, Trig 74, LDL 61.2- well controlled Last lab values have been reviewed CV Testin06/22/20 echo 12/04/2010 Heart cath/PCI 10/2010 heart cath/PCI No echocardiogram results found for the past 12 months Assessment/Plan: Benign essential HTN Hypertension is well controlled per Cardiac rehab log Continue amlodipine, coreg and losartan CAD in [place] artery Coronary artery disease is stable without any concerning symptoms Continue GDMT- ASA, plavix, coreg and lipitor Mixed hyperlipidemia Lipid abnormalities are well controlled Continue lipitor Liver function normal Silent myocardial infarction (CMS/HCC) stable Edema of lower extremity States edema is about typical and no worse than usual RTC 1 year [facility] 08-01-2022 Note Patient here for 1 y ear follow up CAD, hypertension, and hyperlipidemia. Had routine labs in Dec 2021. Still goes to cardiac rehab every Saturday. Denies chest pain and SOB. Does have some LE edema. Review of Systems All other systems reviewed and are negative. [facility] 06-19-2022 Evaluation note Encounter Date Diagnosis Assessment Notes Jun, Essential hypertension (ICD-10 - I10) GOAL: Maintain BP < 140/90. STATUS: achieved. TIME FRAME: Lifetime goal. Barriers: Non- identifed. Continue current regimen and a low Na+ diet. Regular CV exercise also encouraged. Jun, Coronary artery disease (ICD-10 - I25.10) Stable on present meds. Sees [facility] Cardio. Labs before next OV Jun, Screening PSA (prostate specific antigen) (ICD-10 - Z12.5) Due for lab in December. [facility] Other Evaluation noteNo assessment information available [facility] Work Phone: History general Narrative - Reported* Type Description Date Medical History Essential hypertension Medical History Coronary artery disease Medical History Edema of both lower extremities Medical History SERUM LIPIDS HIGH Surgical History CATH 1 STENT Surgical History STENT RCA Hospitalization History SEE SURGICAL HX [facility] Other Summary Purpose Family History No Family History Records Found Relationship Condition Age at Onset Recorded Date/T arley Not Specified Family history of colon cancer Unknown Malignant neoplasm Unknown Heart disease Unknown sister History of stroke Unknown Advance Directives No Advanced Directives Records Found Advance Directive Response Recorded Date/ Time Advance Directives No March 26, 2023 12:30pm Chief Complaint and Reason for Visit Chief Complaint Amb Documentation 6 MONTH CHECK UP Additional Source Comments (unrecognized sect ion and content) No Status Records FoundNo Status Records FoundNo Status Records Found INFORMATION SOURCE (unrecogn ized section and content) DATE CREATED AUTHOR [facility]31/2020 [facility] DATE CREATED AUTHOR AUTHOR'S ORGANIZ ATION 12/12/2021 Catalina Perez [facility] DATE CREATED AUTHOR AUTHOR'S ORGANIZ ATION 07/26/2023 [facility] REASON FOR VISIT (unrecogniz ed section and content) 6 MONTH FOLLOW UP MB Care Teams (unrecognized sec tion and content) Team Status: Active Member Role Status Dates Patsy Escalante MD Primary Care Provider Active Team Status: Active Member Role Status Dates Patsy Escalante MD Primary Care Provider Active Start: May 30, 2023 BRAYDON Guzman Attending Provider Active Start : May 30, 2023 Team Status: Inactive Member Role Status Dates Patsy Escalante MD Primary Care Provide r, Attending Provider Active Start: June 11, 2023 End: June 11, 2023 Goals (unrecognized section and content) Goals may be documented in a n alternate section FOR RECORDS PERTAINING TO PATIENTS WHO ARE OR HAVE BEEN ENROLLED IN A CHEMICAL DEPENDENCY/SUBSTANCEABUSE PROGRAM, SOME INFORMATION MAY BE OMITTED. This clinical summary was aggregated from multiple sources. Caution should be exercised in using it in the provision of clinical care. This summary normalizes information from multiple sources, and as a consequence, information in this document may materially change the coding, format and clinical context of patient data. In addition, data may be omitted in some cases. CLINICAL DECISIONS SHOULD BE BASED ON THE PRIMARY CLINICAL RECORDS. [employer] provides no warranty or guarantee of the accuracy or completeness of information in this document.
[2023-11-29 09:38] LABS: Basophils Absolute Auto 0.1 10^3/uL (0.0-0.1); Basophils Percent Auto 0.9 % (0.2-2.0); Eosinophils Absolute Auto 0.4 10^3/uL (0.0-0.7); Eosinophils Percent Auto 5.2 % (0.9-7.0); Hematocrit 41.9 % (42.0-54.0); Hemoglobin 14.3 g/dL (14.0-18.0); Immature Granulocytes Abs Auto 0.02 10^3/uL (0.00-0.03); Immature Granulocytes Pct Auto 0.3 % (0.0-0.5); Lymphocytes Absolute Auto 2.1 10^3/uL (1.2-3.8); Lymphocytes Percent Auto 30.9 % (20.5-60.0); Mean Corpuscular HGB Conc 34.1 g/dL (29.9-35.2); Mean Corpuscular Hemoglobin 31.6 pg (25.9-34.0); Mean Corpuscular Volume 92.7 fL (80.0-94.0); Mean Platelet Volume 9.9 fL (9.5-13.5); Monocytes Absolute Auto 0.8 10^3/uL (0.3-0.8); Monocytes Percent Auto 11.2 % (1.7-12.0); Neutrophils Absolute Auto 3.6 10^3/uL (1.4-6.5); Neutrophils Percent Auto 51.5 % (43.0-75.0); Platelet Count 270 10^3/uL (150-450); Red Blood Count 4.52 10^6/uL (4.70-6.10); White Blood Count 6.9 10^3/uL (4.0-11.0)
[2023-11-29 10:01] LABS: Alanine Aminotransferase 36 U/L (16-63); Albumin Level 3.7 g/dL (3.4-5.0); Alkaline Phosphatase 96 U/L (46-116); Anion Gap 10.1; Aspartate Amino Transferase 25 U/L (15-37); BUN Creatinine Ratio 16.3; Bilirubin Total 0.8 mg/dL (0.2-1.0); Calcium 9.2 mg/dL (8.5-10.1); Carbon Dioxide 29.6 mmol/L (21.0-32.0); Chloride 105 mmol/L (98-107); Chol HDL Ratio 2.3; Cholesterol 142 mg/dL (<=200); Estimated GFR (African America >60 (>=60); Estimated GFR (Non-African Ame 58 (>=60); Globulin 3.6 g/dL; Glucose 108 mg/dL (74-106); HDL Cholesterol 62 mg/dL (40-60); Potassium 3.7 mmol/L (3.5-5.1); Sodium 141 mmol/L (136-145); Total Protein 7.3 g/dL (6.4-8.2); Triglycerides 53 mg/dL (<=150); VLDL CHOLESTEROL 10.6 mg/dL
[2023-11-29 10:16] LABS: Prostate Specific Antigen Scrn 1.02 ng/mL (<=4.00)
== END 2023-11-29 09:12 | disposition home or self-care (01) ==
LOC: LAB 09:12
PROVIDERS: PCP Family Medicine; Visit Provider Family Medicine
DX: I25.10 Atherosclerotic heart disease of native coronary artery without angina pectoris (principal); I10 Essential (primary) hypertension; Z12.5 Encounter for screening for malignant neoplasm of prostate
CPT/HCPCS: 36415; 80053; 80061; 85025; G0103

== ENCOUNTER 2024-04-25 01:34 | Emergency (ER) | payer MEDICARE, SELFPAY ==
[2024-04-25] MEDS: LIDOCAINE HCL 2%-EPINEPHRINE 1:200,000 20 ML MDV 10 ML INJ (01:36)
[2024-04-25 01:39] VITALS: BP 160/84; PULSE 85; TEMP 37.1; O2SAT 97; BMI 28.3
--- OUTSIDE RECORDS SUMMARY | 2024-04-25 01:39 | XMS_ITS | CCD ---
Author Organization [facility] Care Team Providers Care Project Account Manager Name Role Phone DR CANDY ESCALANTE Admitting Unavailable TAWANA, DR GUPTA Attending Unavailable TAWANA, DR PATSY [facility] Unavailable TAWANA, DR PATSY Sanabria Consulting Unavailable TAWANA, DR PATSY [facility] Unavailable JOSE C, DR AYALA Admitting Unavailable JOSE C, DR AYALA Attending Unavailable JOSE C, DR AYLAA Consulting Unavailable KING, DR ZHOU So Consulting Unavailable Patsy Escalante Unavailable BHASKAR CARSON Attending Unavailable BHASKAR CARSON Attending Unavailable Medications Current Medications Medication Drug Class(es) Dates Sig (Normalized) Sig (Original) amLODIPine 10 mg oral tablet (3 sources) Dihydropyridine Calcium Channel Tan Start: 06-07-2023 take 10 mg by mouth once daily Amlodipine Active 10 MG PO Daily June 07, 2023 12:00am take 1 tablet by carl th every twenty-four hours amLODIPine Besylate 10 MG 1 tablet Orall y Once a day Active Aspir-81 (1 source) Aspir-81 Active aspirin 81 mg oral tablet (2 sources) Platelet Aggregation Inhibitor, Nonsteroidal Anti-inflammatory Drug Start: 4 take 81 mg by mouth once daily Aspirin Active 81 MG PO Daily June 07, 2023 12:00am atorvastatin 80 mg oral tablet (5 sources) HMG-CoA Reductase Inhibitor Start: 4 End: 4 take 80 mg by mouth once daily Atorvastatin Active 80 MG PO Daily May 30, 2023 9:42pm Atorvastatin Benji cium 80 MG TAKE 1 TABLET DAILY for 90 Active carvedilol 25 mg oral tablet (4 sources) alpha-Adrenergic Tan, beta-Adrenergic Tan Start: 06-07-2023 End: 07-08-2023 take 25 mg by mouth twice daily Carvedilol Active 25 MG PO Twice daily 180 July 08, 2023 12:47pm take 1 tablet by carl th every twelve hours Carvedilol 25 MG 1 tablet with food Oral ly Twice a day Active clopidogrel 75 mg oral tablet (5 sources) P2Y12 Platelet Inhibitor Start: 06-07-2023 End: 11-11-2023 take 75 mg by mouth once daily Clopidogrel Active 75 MG PO Daily November 11, 2023 9:43pm take 1 tablet by carl th every twenty-four hours Clopidogrel Bisulfate 75 MG 1 tablet Orally Once a day Active Fish Oils (1 source) take 1 capsule by mouth once daily Fish Oil 1000 MG 1 capsule Orally Once a day Active losartan potassium 100 mg oral tablet (4 sources) Angiotensin 2 Receptor Tan Start: 06-07-2023 End: 09-02-2023 take 100 mg by mouth once daily Losartan Active 100 MG PO Daily September 02, 2023 10:34am take 1 tablet by carl th every twenty-four hours Losartan Potassium 100 MG 1 tablet Orally Once a day Active Keota-3 Fatty Acids (2 sources) Start: 06-07-2023 take 1000 mg by mout h once daily Keota-3 Fatty Acids Active 1000 MG PO Daily June 07, 2023 12:00am Problems Active Problems Problem Classification Problem Date Documented Date Episodic/Chronic Acute myocardial infarction (2 sources) Acute myocardial infarction, unspecified; Translations: [Acute myocardial infarction, unspecified] Onset: 08-01-2022 Chronic Coronary atherosclerosis and other heart disease (11 sources) Atherosclerotic heart disease of [place] coronary artery without angina pectoris; Translations: [Silent myocardial ischemia] Onset: 08-03-2021 Chronic Disorders of lipid metabolism (2 sources) Mixed hyperlipidemia; Translations: [Mixed hyperlipidemia] Onset: 08-01-2022 Chronic Essential hypertension (10 sources) Essential (primary) hypertension; Translations: [Essential hypertension] Onset: 12-08-2021 Chronic Other screening for suspected conditions (not mental disorders or infectious disease) (3 sources) Encounter for screening for malignant neoplasm of prostate; Translations: [Patient encounter status] Onset: 12-12-2021 Episodic Residual codes; unclassified (1 source) Edema; Translations: [Localized edema] Episodic Past or Other Problems Problem Classification Problem Date Documented Da te Episodic/Chronic Residual codes; unclassified (2 sources) Localized edema; Translations: [Localized edema] Onset: 08-01-2022 Episodic Results Test Name Value Interpretation Reference Range Facility Basophils Auto (Bld) [#/Vol] on 11-29-2023 Basophils (Bld) [#/Vol] 0.1 10 3/uL 0.0-0.1 [facility] Basophils/100 WBC Auto (Bld) on 11-29-2023 Basophils/100 WBC (Bld) 0.9 % 0.2-2.0 [facility] Cholesterol in LDL Calc [Mas s/Vol]on 11-29-2023 Cholesterol in LDL [Mass/Vol] 70.0 mg/dL [facility] Comment on above: <100 mg/dl [id number] 0-129 mg/dl NEAR OR ABOVE [id number] mg/dl BORDERLINE IRET666-101 mg/dl HIGH>190 mg/dl VERY HIGH Cholesterol in VLDL Calc [Ma ss/Vol]on 11-29-2023 Cholesterol in VLDL [Mass/Vol] 10.6 mg/dL [facility] Eosinophils/100 WBC Auto (Bl d)on 11-29-2023 Eosinophils/100 WBC (Bld) 5.2 % 0.9-7.0 [facility] Erythrocyte distribution wid th Auto (RBC) [Ratio]on 11-29-2023 Erythrocyte distribution width (RBC) [Ratio] 13.0 % 11.0-15.0 [facility] Estimated glomerular filtrat ion rate (GFR) non- Americanon 11-29-2023 GFR/1.73 sq M.predicted among non-blacks MDRD (S/P/Bld) [Vol rate/Area] 58 mL/min/{1.73_m2} Low >=60 [facility] Globulin Calc (S) [Mass/Vol] on 11-29-2023 Globulin (S) [Mass/Vol] 3.6 g/dL [facility] Hematocrit Auto (Bld) [Volum e fraction]on 11-29-2023 Hematocrit (Bld) [Volume fraction] 41.9 % Low 42.0-54.0 [facility] Hemoglobin [Mass/volume] in Bloodon 11-29-2023 Hemoglobin (Bld) [Mass/Vol] 14.3 g/dL 14.0-18.0 [facility] Laboratory - Chemistry and C hemistry - challengeon 11-29-2023 Albumin [Mass/Vol] 3.7 g/dL 3.4-5.0 [facility] ALP [Catalytic activity/Vol] 96 U/L 46-116 [facility] ALT [Catalytic activity/Vol] 36 U/L 16-63 [facility] AST [Catalytic activity/Vol] 25 U/L 15-37 [facility] Bilirubin [Mass/Vol] 0.8 mg/dL 0.2-1.0 [facility] Calcium [Mass/Vol] 9.2 mg/dL 8.5-10.1 [facility] Chloride [Moles/Vol] 105 mmol/L 98-107 [facility] Cholesterol [Mass/Vol] 142 mg/dL <=200 [facility] Cholesterol in HDL [Mass/Vol] 62 mg/dL High 40-60 [facility] Comment on above: > or =60 mg/dl - LOW CARDIOVASCULAR RISK<40 mg/dl - HIGH CARDIOVASCULAR RISK CO2 [Moles/Vol] 29.6 mmol/L 21.0-32.0 [facility] Creatinine [Mass/Vol] 1.23 mg/dL 0.70-1.30 [facility] GFR/1.73 sq M.predicted MDRD (S/P/Bld) [Vol rate/Area] mL/min/{1.73_m2} >=60 [facility] Glucose [Mass/Vol] 108 mg/dL High 74-106 [facility] Potassium [Moles/Vol] 3.7 mmol/L 3.5-5.1 [facility] Protein [Mass/Vol] 7.3 g/dL 6.4-8.2 [facility] Sodium [Moles/Vol] 141 mmol/L 136-145 [facility] Triglyceride [Mass/Vol] 53 mg/dL <=150 [facility] Urea nitrogen [Mass/Vol] 20.0 mg/dL High 7.0-18.0 [facility] Urea nitrogen/Creatinine [Mass ratio] 16.3 mg/mg [facility] Laboratory - Hematology and Cell countson 11-29-2023 Immature granulocytes/100 WBC (Bld) 0.3 % 0.0-0.5 [facility] Leukocytes [#/volume] correc marie for nucleated erythrocytes in Blood by Automated counon 11-29-2023 WBC corrected for nucl RBC Auto (Bld) [#/Vol] 6.9 10 3/uL 4.0-11.0 [facility] Lymphocytes Auto (Bld) [#/Vo l]on 11-29-2023 Lymphocytes (Bld) [#/Vol] 2.1 10 3/uL 1.2-3.8 [facility] Lymphocytes/100 WBC Auto (Bl d)on 11-29-2023 Lymphocytes/100 WBC (Bld) 30.9 % 20.5-60.0 [facility] MCH Auto (RBC) [Entitic mass ]on 11-29-2023 MCH (RBC) [Entitic mass] 31.6 pg 25.9-34.0 [facility] MCHC Auto (RBC) [Mass/Vol]on 11-29-2023 MCHC (RBC) [Mass/Vol] 34.1 g/dL 29.9-35.2 [facility] MCV Auto (RBC) [Entitic vol] on 11-29-2023 MCV (RBC) [Entitic vol] 92.7 fL 80.0-94.0 [facility] Monocytes Auto (Bld) [#/Vol] on 11-29-2023 Monocytes (Bld) [#/Vol] 0.8 10 3/uL 0.3-0.8 [facility] Monocytes/100 WBC Auto (Bld) on 11-29-2023 Monocytes/100 WBC (Bld) 11.2 % 1.7-12.0 [facility] Neutrophils Auto (Bld) [#/Vo l]on 11-29-2023 Neutrophils (Bld) [#/Vol] 3.6 10 3/uL 1.4-6.5 [facility] Neutrophils/100 WBC Auto (Bl d)on 11-29-2023 Neutrophils/100 WBC (Bld) 51.5 % 43.0-75.0 [facility] No Panel Informationon 11-28 Eosinophils # (Auto) 0.4 10 3/uL 0.0-0.7 [facility] Immature Granulocyte # (Auto) 0.02 10 3/uL 0.00-0.03 [facility] Prostate Specific Antigen Screen 1.02 ng/mL <=4.00 [facility] Platelet mean volume Auto (B ld) [Entitic vol]on 11-29-2023 Platelet mean volume (Bld) [Entitic vol] 9.9 fL 9.5-13.5 [facility] Platelets Auto (Bld) [#/Vol] on 11-29-2023 Platelets (Bld) [#/Vol] 270 10 3/uL 150-450 [facility] RBC Auto (Bld) [#/Vol]on RBC (Bld) [#/Vol] 4.52 10 6/uL Low 4.70-6.10 [facility] Serum or plasma albumin/glob ulin mass ratioon 11-29-2023 Albumin/Globulin [Mass ratio] 1.0 {ratio} [facility] Serum or plasma anion gap de terminationon 11-29-2023 Anion gap [Moles/Vol] 10.1 mmol/L Fi [facility] Serum or plasma total choles terol/high density lipoprotein (HDL) cholesterol mass rachel 11-29-2023 Cholesterol.total/Cho lesterol in HDL [Mass ratio] 2.3 {ratio} [facility] Comment on above: 3.3 - 4.4 LOW RISK4. 4 - 7.1 AVERAGE RISK7.1 - 11.0 MODERATE RISK>11.0 HIGH RISK Office Visiton 07-24-2023 Follow-up visit [id number] Bryant Foreman Vannessa 1950 M Date Provider Department Center 07/24/2023 BHASKAR MARTINEZ Family History Problem Relation Age of Onset Coronary artery disease Other Diabetes Other Family Status - Relation Status Age at Other Level of Service:94817 [facility] OFFICE/OUTPATIENT ESTABLISHED LOW MDM 20 MIN Reason for Visit and Comments: Follow-up [380954] - Yearly follow up Normal [facility] Office Visiton 08-01-2022 Follow-up visit [id number] Bryant Foreman Vannessa 1950 Date Provider Department Center 08/01/2022 BHASKAR MARTINEZ Family History Problem Relation Age of Onset Coronary artery disease Other Diabetes Other Family Status - Relation Status Age at Other Level of Service:28065 [facility] OFFICE/OUTPATIENT ESTABLISHED MOD MDM 30-39 MIN Normal [facility] CBC AUTO DIFFon 12-08-2021 BASO # 0.1 103/ul Normal 0.0-0.1 [facility] Comment on above: Performed By: #### C BC #### [facility] [address] [address] [address] Rajat Arora Basophils/100 WBC (Bld) 0.6 % Normal 0.2-2.0 [facility] Comment on above: Performed By: #### C BC #### [facility] [address] [address] [address] Rajat Arora EO # 0.4 103/ul Normal 0.0-0.7 [facility] Comment on above: Performed By: #### C BC #### [facility] [address] [place] [address] Dr. Rajat Arora Eosinophils/100 WBC (Bld) 4.8 % Normal 0.9-7.0 [facility] Comment on above: Performed By: #### C BC #### [facility] [address] [address] [address] Rajat Arora Erythrocyte distribution width (RBC) [Ratio] 13.0 % Normal 11.0-15.0 [facility] Comment on above: Performed By: #### C BC #### [facility] [address] [address] [address] Rajat Arora Hematocrit (Bld) [Volume fraction] 40.1 % Critically low 42.0-54.0 [facility] Comment on above: Performed By: #### C BC #### [facility] [address] [address] [address] Rajat Arora Hemoglobin (Bld) [Mass/Vol] 14.1 g/dL Normal 14.0-18.0 [facility] Comment on above: Performed By: #### C BC #### [facility] [address] [place] [address] Dr. Rajat Arora IG # 0.02 10e3/ul Normal 0.00-0.03 [facility] Comment on above: Performed By: #### C BC #### [facility] [address] [place] [address] Dr. Rajat Arora IG % 0.3 % Normal 0.0-0.5 [facility] Comment on above: Performed By: #### C BC #### [facility] [address] [place] [address] Dr. Rajat Arora LYMPH # 2.2 103/ul Normal 1.2-3.8 [facility] Comment on above: Performed By: #### C BC #### [facility] [address] [place] [address] Dr. Rajat Arora Lymphocytes/100 WBC (Bld) 27.3 % Normal 20.5-60.0 [facility] Comment on above: Performed By: #### C BC #### [facility] [address] [place] [address] Dr. Rajat Arora MANUAL DIFF REQ NO Normal [facility] Comment on above: Performed By: #### C BC #### [facility] [address] [place] [address] Dr. Rajat Arora MCH (RBC) [Entitic mass] 32.7 pg Normal 25.9-34.0 [facility] Comment on above: Performed By: #### C BC #### [facility] [address] [place] [address] Dr. Rajat Arora MCHC (RBC) [Mass/Vol] 35.2 g/dL Normal 29.9-35.2 [facility] Comment on above: Performed By: #### C BC #### [facility] [address] [place] [address] Dr. Rajat Arora MCV (RBC) [Entitic vol] 93.0 fL Normal 80.0-94.0 [facility] Comment on above: Performed By: #### C BC #### [facility] [address] [place] [address] Dr. Rajat Arora MONO # 0.7 103/ul Normal 0.3-0.8 [facility] Comment on above: Performed By: #### C BC #### [facility] [address] [address] [address] Rajat Arora Monocytes/100 WBC (Bld) 9.1 % Normal 1.7-12.0 [facility] Comment on above: Performed By: #### C BC #### [facility] [address] [address] [address] Rajat Arora NEUT # 4.6 103/ul Normal 1.4-6.5 [facility] Comment on above: Performed By: #### C BC #### [facility] [address] [address] [address] Rajat Arora Neutrophils/100 WBC (Bld) 57.9 % Normal 43.0-75.0 [facility] Comment on above: Performed By: #### C BC #### [facility] [address] [address] [address] Rajat Arora Platelet mean volume (Bld) [Entitic vol] 9.7 fL Normal 9.5-13.5 [facility] Comment on above: Performed By: #### C BC #### [facility] [address] [address] [address] Rajat Arora PLT 236 103/ul Normal 150-450 [facility] Comment on above: Performed By: #### C BC #### [facility] [address] [address] [address] Rajat Arora RBC 4.31 106/ul Critically low 4.70-6.[address] [facility] Comment on above: Performed By: #### C BC #### [facility] [address] [address] [address] Rajat Arora WBC 8.0 103/ul Normal 4.0-11.0 [facility] Comment on above: Performed By: #### C BC #### [facility] [address] [address] [address] Rajat Arora LIPID PROFILEon 12-08-2021 CHOL-HDL RATIO NORM SEE BELOW Normal [facility] Comment on above: Result Comment: 3.3 - 4.4 LOW RISK 4.4 - 7.1 AVERAGE RISK 7.1 - 11.0 MODERATE RISK >11.0 HIGH RISK Performed By: #### L IPID, CMP #### [facility] [address] [place] [address] Dr. Rajat Arora Cholesterol [Mass/Vol] 132 mg/dL Normal <=200 [facility] Comment on above: Performed By: #### L IPID, CMP #### [facility] [address] [place] [address] Dr. Rajat Arora Cholesterol in HDL [Mass/Vol] 56 mg/dL Normal 40-60 [facility] Comment on above: Performed By: #### L IPID, CMP #### [facility] [address] [place] [address] Dr. Rajat Arora Cholesterol in LDL [Mass/Vol] 61.2 mg/dL Normal [facility] Comment on above: Performed By: #### L IPID, CMP #### [facility] [address] [place] [address] Dr. Rajat Arora Cholesterol.total/Cho lesterol in HDL [Mass ratio] 2.4 {ratio} Normal [facility] Comment on above: Performed By: #### L IPID, CMP #### [facility] [address] [place] [address] Dr. Rajat Arora HDL NORMAL > or = 60 mg/dl - LOW CARDIOVASCULAR RISK <40 mg/dl - HIGH CARDIOVASCULAR RISK Normal [facility] Comment on above: Performed By: #### L IPID, CMP #### [facility] [address] [place] [address] Dr. Rajat Arora LDL CALC NORMAL SEE BELOW Normal [facility] Comment on above: Result Comment: <100 mg/dl OPTIMAL 100 - 129 mg/dl NEAR OR ABOVE OPTIMAL 130 - 159 mg/dl BORDERLINE HIGH 160 - 189 mg/dl HIGH >190 mg/dl VERY HIGH Performed By: #### L IPID, CMP #### [facility] [address] [place] [address] Dr. Rajat Arora Triglyceride [Mass/Vol] 74 mg/dL Normal <=150 [facility] Comment on above: Performed By: #### L IPID, CMP #### [facility] [address] [address] [address] Rajat Arora VLDL CALC 14.8 mg/dL Normal [facility] Comment on above: Performed By: #### L IPID, CMP #### [facility] [address] [address] [address] Rajat Arora PROF 14(COMP METB)on 022 Albumin [Mass/Vol] 3.5 g/dL Normal 3.4-5.0 [facility] Comment on above: Performed By: #### L IPID, CMP #### [facility] [address] [address] [address] Rajat Arora Albumin/Globulin [Mass ratio] 1.0 {ratio} Normal [facility] Comment on above: Performed By: #### L IPID, CMP #### [facility] [address] [place] [address] Dr. Rajat Arora ALP [Catalytic activity/Vol] 88 U/L Normal 46-116 [facility] Comment on above: Performed By: #### L IPID, CMP #### [facility] [address] [address] [address] Rajat Arora ALT [Catalytic activity/Vol] 37 U/L Normal 16-63 [facility] Comment on above: Performed By: #### L IPID, CMP #### [facility] [address] [place] [address] Dr. Rajat Arora Anion gap [Moles/Vol] 8.1 mmol/L Normal [facility] Comment on above: Performed By: #### L IPID, CMP #### [facility] [address] [place] [address] Dr. Rajat Arora AST [Catalytic activity/Vol] 21 U/L Normal 15-37 [facility] Comment on above: Performed By: #### L IPID, CMP #### [facility] [address] [place] [address] Dr. Rajat Arora Bilirubin [Mass/Vol] 0.9 mg/dL Normal 0.2-1.0 [facility] Comment on above: Performed By: #### L IPID, CMP #### [facility] [address] [address] [address] Rajat Arora Calcium [Mass/Vol] 8.7 mg/dL Normal 8.5-10.1 [facility] Comment on above: Performed By: #### L IPID, CMP #### [facility] [address] [address] [address] Rajat Arora Chloride [Moles/Vol] 107 mmol/L Normal 98-107 [facility] Comment on above: Performed By: #### L IPID, CMP #### [facility] [address] [place] [address] Dr. Rajat Arora CO2 [Moles/Vol] 29.5 mmol/L Normal 21.0-32.0 [facility] Comment on above: Performed By: #### L IPID, CMP #### [facility] [address] [place] [address] Dr. Rajat Arora Creatinine [Mass/Vol] 1.01 mg/dL Normal 0.70-1.30 [facility] Comment on above: Performed By: #### L IPID, CMP #### [facility] [address] [place] [address] Dr. Rajat Arora EGFR-AF CITIZEN [place] >60 Normal >=60 [facility] Comment on above: Performed By: #### L IPID, CMP #### [facility] [address] [place] [address] Dr. Rajat Arora EGFR-NON AF CITIZEN OF [place] >60 Normal >=60 [facility] Comment on above: Performed By: #### L IPID, CMP #### [facility] [address] [place] [address] Dr. Rajat Arora Globulin (S) [Mass/Vol] 3.6 g/dL Normal [facility] Comment on above: Performed By: #### L IPID, CMP #### [facility] [address] [place] [address] Dr. Raajt Arora Glucose [Mass/Vol] 113 mg/dL Critically high 74-106 [facility] Comment on above: Performed By: #### L IPID, CMP #### [facility] [address] [address] [address] Rajat Arora Potassium [Moles/Vol] 3.6 mmol/L Normal 3.5-5.1 [facility] Comment on above: Performed By: #### L IPID, CMP #### [facility] [address] [place] [address] Dr. Rajat Arora Protein [Mass/Vol] 7.1 g/dL Normal 6.4-8.2 [facility] Comment on above: Performed By: #### L IPID, CMP #### [facility] [address] [address] [address] Rajat Arora Sodium [Moles/Vol] 141 mmol/L Normal 136-145 [facility] Comment on above: Performed By: #### L IPID, CMP #### [facility] [address] [place] [address] Dr. Rajat Arora Urea nitrogen [Mass/Vol] 15.0 mg/dL Normal 7.0-18.0 [facility] Comment on above: Performed By: #### L IPID, CMP #### [facility] [address] [place] [address] Dr. Rajat Arora Urea nitrogen/Creatinine [Mass ratio] 14.9 mg/mg Normal [facility] Comment on above: Performed By: #### L IPID, CMP #### [facility] [address] [place] [address] Dr. 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 Admission #: [id number] Family : Order #: [id number] CLICK HERE TO VIEW EXAM RADIOLOGY REPORT [...] Non-diagnostic per attending physician Dr. Victor Hugo Lei . For more details please see separate [...] Dubon M.D. on 08/04/2021 at 09:39 Normal [facility] Coding Summary.on 07-28-2020 Coding Summary. CD:[id number] FJw9jRe+PGhlYWQ+PE1 LXVVbC40mqLQdzS4XB4 mKKJ6YMELOXCNFMY2FE A2erIV9KCqaM5KqtoXt VofepIDvQM97IRe3EQJ 7sLmdVDuriC6wiYCjW6 x6OtNkEI69cR79RBiyB IMcHcK8TaMbanvxuJQt Q6ftJuNdeXDdTsl+PHR hYmxlIHdpZHRoPScxMD VwUqAbuSqaZC1eDz1zZ GVyLWNvbGxhcHNlOiBj t6teAXBtKVpeVB4qmWm nR3NkoLJ9BCNcy1z1Mn 48dHI+IIMdQNT9zWumL Defp112VdYis1lzUKM2 lAVqSSswQEM9U29qc6Z 0XLNmWWHrHDE8fNO7xF 0lkOanejauM8TwjMNsS mU0MGD4kXKecL6qzUtv hplfxK8gNsz+E51BUC8 DQVCHQZ2FJsu1J2OsWo wvdHI+DE69HTOnCC53e NAanXKvr1woqYx3RlRo MJPqBUJ3sKytZVcqf4J gOVGhF18xuILrp2G7WM XqtEkffXXwJhCooHL3s V2aBVvoipxyu2xwelts Ahqen1wxha46gQ83R76 aQEqmMULeSOM3TIPhZV ZonGmxbk5ypB1mGt4+I Gcrv6fsc2dfmQq2IhYn DVExxtVefXsaVRB9x6N gEh92W1PqwAgfb5KcAq z5qk51fDZif5Q9nFN9O OulOXEphF2hLGxuUfA6 LNGqTpYzeM53qDHsPIf dEg3fkWelqBjyOK2oWJ XykannSPBvpG4vACMfw RYpaAhhZP9dKXHnkitc l976NjKtXHJ4QPWffCZ iR4BvfK1zFeAfXXDkHK SmO6TsvTJmPTohY218W SfmPlW2KTCetaFoP6Vj FTOkgGymGbN8v9B6Bh2 En4JafuewNLT7YQmyXU I2EgW8XkQmKqW9K3HgQ ur3ECSqqLfnJM5tR1Us IHUkhxmruijzoNY8HMV yMGGufE78uLKmXXagTm 7ad9Z5j583UAFxMFVrr E32Ak5giVkdAQZpiNRT kE3hfzmsh3dsetinCgE uVQLzCAm3UBs4UZHznE qgPgNbYWR5GiF4TUK9g XHksJ3ilAqoqnupiT6s Oyc+R32opG3tSTP5JDZ 8lilkUFImrdChYL02VU 92W3NfZyvbiRJjnHA+P USdwvLmuLrqOZ9kOdWj w7vvi4QxOYmnQ4IfJSW pLAimXlk1JNQiLLL5iQ T1sK5dZISwKBukk5K5n ZJ2Q3JofnZqzk0wl5mi HZUaKKpfW75hzXTgk8W 5QLSnmNT2DHZdyVvbSb PyaN81Vuz+PGNvbGdyb 4OuPgeow3zqe4lxyKw2 IjMwJSIgdmFsaWduPSJ 8e4BsDp17X00yCMtbFI RoPSIxNSUiIHZhbGlnb j8rbH1rLj6+PGNvbCB3 fYY6vM7dBMFzVsG1QFq wS108RtXkeAVeKngke8 svd9jsnZw0AbRkBECin wTrsOvqIZQ7c7CxUc41 S10mYMnkFPBkGOVyMPE cMZEunKzuja1hgO3aCc 8+ND9tg6czdi34tD37g HI+NSAuGAR0gDelXBtb XIJnsL0dFFmeOrB4OJA pUlZhcU28bKAdTWdyUd 7tjEflyQloNX6iRUCvg xiqj102CpMxy5rnTGXl vCYwCXgqIYU4O49ra1R 7GBRtAPXrKTT8fJH0lI 1hbGlnbjogbGVmdDsgd wFesYzcPJnuWBunH660 IHRvcDsnPlBhdGllbnQ uUlBaGHq5E7LbYlo8HT YzzDrxPR7dgREcPQekI q9bfSrekZugVU9zPNVv mlcbs741ZqRcy9cmKVC quGPjPIgfPTA8U86nn1 W8BNZtKJCeZYL0zRT4q H4avCnakssztTOdmQtk ilRlgWhhKYdjCXepZ23 6IHRvcDsnPkJpcnRoIE ArmLP1GI59SX68xPAeu 2B5yKE0E1EvRWGzbscn szutuPM9UGUtJJEjyR1 3Dj1buNmjCx3zZQXqZW S0STJyqEOoP5OyxG8pO jHhXLKoPHSyV8UenIPt AMmqE187JGthBkZ4DEJ luaLxI1CqDMNbzTnqAy L0a4E2Jx6OA9U4BQ05N E44oNNgh0P8lXL0U1Wd LQZojdxslcttpVJ2DEF uXNAlpO39Dw8wkQwtSd 4iFMHyNYJ9CLPuxONsI 8QluH6qLpIyJMRuXZMz Q6IzmFXaHMdvR704UCn xZtF1FCRzzxOeI4AdAS DjbHlfVdT0j3M9Sd3HR Nx2HI92QY50jYCqj1T9 lPI2H1QaTLYsupyrhwi ycOU5KHOxKHLjwM51Qx 6caLrvDz3eXKYgVUP5Z SSaxPGaJ0JxcH1uClWu XEUyVJZjY9CzcTYkWDo kN517DAejIiB3RXOiwu SnB4QrPGPfiRtbIdL0m 4J1Yf6JPKZpYC25UGG3 bSP6CZ17LC46S9IrXgp vdGFibGU+PHRhYmxlIH dpZHRoPScxMDAlJyBzd ZzrDJ2pJy2pKAWzVOPn oScigYApCvJzk9swCMI fPPqqRW8naGqmQ7CtqG S3VRLdl7d1Vl90X94xP 3JvdXA+UNSdoQO3rJA4 gO5uGbImUnD4QDcyH08 1LpCceLEkUdomm8vpf8 tdoAd7MuM0KSViymOlr FuxBYQ8n2NbXj54Z89h IHdpZHRoPSIxNSUiIHZ njBgrdm1wzA0rBp3+PG UaiMZ2vZW3tZ8cIjLuB wK8JYjuU543EjKmfKBu Zyqdg3vjx9wtbMn2VlE nICAkygYpnFnoBOD2c6 OjIx57S6GyxUvin1MkV yh2jq21hUUkh9U4zKJ9 R5RxYFNodarlvMZszEo gLA6gXLOmrbhvVDRxwR 0vEXQeE1f8SfMxUgC5C EqaV5HlojP5SJIhzNPg ZVzzZGS3D31pp2I8DPQ yMVFnSKX6wPE8jD5uqM lnbjogbGVmdDsgdmVyd YluIXwbYOpdR220ZIOi hWtkNBIukF4yANNwsRK xpFbeHE5gLVQgszveKg 8UUaCTFRROWWTWAN8UZ ISALZ78UI91sMFgl3Y2 tGE8T2XjPXHyuszbaok gpYV5AXLoZDShvQ98dF BuXWhlSd6at0U6o451N SRmJZYwqV34Iu2ozQtt PLCbxYNXoP2gwnowe3p exzxqNoEsYQUuTOx9YE z5SNHriDxsEoBmQWR6V vE9DBA2nETmbX9rhRgs izzfhW5cFpr+MTEvMTU jJPp5NNuatSV+PHRkIH Y8uDccDTetYNBsqN6sW DWcL9t8OfTpZeE3EVgr G2XaDNLcirapJc19uW1 iRzAzBbI5AWgeH5Ejwu P4CNUmeZZhMDhlIRV2Q 04ai5I3RZBkLCDfZFZ1 yLO6iR9wbVfnpjddiCG mdDsgdmVydGljYWwtYW gfB023EAThzVteXsQ1S ZycDXVhOV14HL02jSTe o9D1fFY0V5VaKYDpjmg wzthbkLX0MMQyHWUsdF 61rAZuZArvEc3pn4T3e 361FODqJAAgqA56Zo6p sSpxSQRkiDFIwI5tdeg ni9qknhszTfVvZVHnFE q3SRu1XTAiaWgcPiIxQ XV2NvE7SVS4pLAhkB6l oNtjmqynhC4oNwy+TWF sZTwvdGQ+TZPyMCS7zN gvIOfxNUVtpX5cKHTeU 9x3NgPcEbF6YQipN0Ar NEJlteoiHp77qW4iAjY jKxE1JFyrG6TvemU6IN XcnQIzUTxpWGS3F22jz 1I2FHFjUFPkXLL2aVA1 nN3vqNzusjfjbALhaLi gdmVydGljYWwtYWxpZ2 89TRCmlPfdBk43zBOav WknyuO0M6KbYgbczBD+ LF46MDGiFK92wIRmzSG ix5salTr7AsUwYJDoST E7pOywUYxyb2EbZBBqD 41arZHhd6N0DUUpaDut qOTrUgHobFC7kV5gHIe antvpv3zokdkmFjhhf4 wkgl41xU56O35jVBgsY HRoPSIzMCUiIHZhbGln rk6slZ2eWe1+PGNvbCB 1zIA3xD4aWlCdIpF9JJ kqL471BtRokSLdWsbyn 7yxy6sytNk9SmUjAKSp yfQeqGddNYV7d5GuEy4 5T16iXXsnVTXsYAXfKY HqKCUrkVyyng7rfA3rZ i8+YL5cq8iuze62xP78 dHI+YJKwYUE4hYrhLWh xLPLjwP5xNYvnMtT3GQ PlNaFzlB18tXQnFHxjQ n6fyZzfkQpkSR3eFCBm mhcjy103QsNxx9quQKY pkTGzVTajRQK0R66li6 P7WXChOYPtZPA3mTE9m R5jfUewhfybmBZdgIqx qfWvhYzuTLxeQWdpU31 4WTMuxCsiPiOpiGUxW8 ttraHBWH5gIwviiOA+P REsABK5rMooIEhyNLEt gR0hJXTkH4u6ClVoSwX 7MUclB2ArovV6FISetG DgCFFeqYFQhK0nuxibf 7rmludoInWhJLKiWEp1 OGo3SAPefNnnRfFeSTB 3LpR1DDN7zDAchH8jnZ kfjzbgeI8vZba+RklOO jwvdGQ+FWCyMWU1mAbd RGtdBZIsnE0kKLUdL0w 8BuYsLtX7KMmzF6Fkie M4LLDgrLRtCCKkaTJKc M9yecpfz8qsnucdLeWk RKDxEBz0NRc3PFPqhPu uFuMsRDB0SsX2GMY9wQ SufS2loAxwvnugeW7yV yc+TVJOOjwvdGQ+PHRk DLB2oGabTGjnZSWwbG3 oVNUhI8x4ObTaSiK0TZ ffI3NkovG0DDMcvZKcB LJstALHnQ1vetvzt9kp cshlCsNjBHHsCDm8MBx 3GOLonNfwPmCiHAH2Un X2QRH2iLHnlM0rgXfbx ynjrP1nZxb+URH1MMU8 TT94JC32E7ZwFbtfyKA ibGU+PHRhYmxlIHdpZH RoPScxMDAlJyBzdHlsZ J3zCu2yILMtFWTucAzo cHNl (more content not included)... Normal [facility] CRPon 07-19-2020 CRP [Mass/Vol] 0.6 mg/dL Normal <=1.9 [facility] Comment on above: Performed By: #### 2 [id number] #### [facility] [address] [place] [address] Consent for Treatmenton 07-02 Consent for Treatment [id number]#[id number]:127 Normal [facility] Physician Orderon 07-19-2020 Physician Order [id number] 25#1.00CD:127 Normal [facility] Platelet Counton 07-19-2020 Platelets (Bld) [#/Vol] 268.0 E9/L Normal 150.0-500.0 [facility] Comment on above: Performed By: #### 2 [id number] #### [facility] [address] [place] [address] Sed Rate Automatedon 021 Sed Rate Automated 9 mm/hr Normal 0-19 [facility] Comment on above: Performed By: #### 2 [id number] #### [facility] [address] [place] [address] Vital Signs Date Time Vital Sign Value Performing Clinician Facility 12-05-2023 13:25-0400 Body height 176.53 cm [facility] 12-05-2023 13:25-0400 Body mass index (BMI) [Ratio] 29.7 kg/m2 [facility] 12-05-2023 13:25-0400 Body weight 92.53 kg [facility] 12-05-2023 13:25-0400 Diastolic blood pressure 62 mm[Hg] [facility] 12-05-2023 13:25-0400 Heart rate 64 /min [facility] 12-05-2023 13:25-0400 Respiratory rate 16 /min [facility] 12-05-2023 13:25-0400 SaO2% (BldA) [Mass fraction] 97 % [facility] 12-05-2023 13:25-0400 Systolic blood pressure 118 mm[Hg] [facility] 06-11-2023 13:07-0400 Body height 176.53 cm [facility] 06-11-2023 13:07-0400 Body mass index (BMI) [Ratio] 30.7 kg/m2 [facility] 06-11-2023 13:07-0400 Body weight 95.76 kg [facility] 06-11-2023 13:07-0400 Diastolic blood pressure 68 mm[Hg] [facility] 06-11-2023 13:07-0400 Heart rate 65 /min [facility] 06-11-2023 13:07-0400 Systolic blood pressure 115 mm[Hg] [facility] 06-19-2022 14:30-0400 Body height 176.53 cm Patsy Escalante Other [employer] Other 06-19-2022 14:30-0400 Body mass index (BMI) [Ratio] 30.85 kg/m2 Patsy Escalante Other [employer] Other 06-19-2022 14:30-0400 Body weight 96.16 kg Patsy Escalante Other [employer] Other 06-19-2022 14:30-0400 Diastolic blood pressure 74 mm[Hg] Patsy Escalante Other [employer] Other 06-19-2022 14:30-0400 SaO2% (BldA) [Mass fraction] 97 % Patsy Escalante Other [employer] Other 06-19-2022 14:30-0400 Systolic blood pressure 124 mm[Hg] Patsy Escalante Other [employer] Other Encounters Encounter Date Encounter Type Care Provider Facility Start: 12-05-2023 End: 12-05-[address] [facility] Work Phone: Start: 12-05-2023 End: 12-05-2023 Patient encounter procedure [facility] Work Phone: Start: 11-29-2023 Non-patient / Non-visit [facility] [employer] Work Phone: Start: 07-24-2023 End: [facility] Start: 06-11-2023 End: 06-11-[address] [facility] Work Phone: Start: 06-11-2023 End: 06-11-2023 Patient encounter procedure [facility] Work Phone: Start: 05-30-2023 Non-patient / Non-visit [facility] [employer] Work Phone: Start: 08-01-2022 End: 08-01-2022 ambulatory BHASKAR CARSON [facility] Start: 06-19-2022 End: 06-19-2022 ambulatory Patsy Escalante Other [facility] [employer] Other Start: 06-19-2022 Office outpatient vi sit 25 minutes Patsy Escalante [facility] Start: 12-08-2021 End: 12-09-[address] CANDY ESCALANTE Facility:[facility] Start: 08-03-2021 End: 08-04-[address] PATSY ESCALANTE Facility:[facility] Procedures Date Procedure Procedure Detail Performing Clinician Start: 12-08-[address] CANDY RUSH Comment on above: Performed By: #### [facility] #### [facility] [address] [place] [address] Dr. Rajat Arora Immunizations Immunization Date Immunization Notes Care Provider Fa cili 12-05-2023 influenza, high dose seasonal, preservative-free [facility] 12-25-2022 influenza virus vacc ine, unspecified formulation [facility] 12-21-2021 influenza virus vacc ine, unspecified formulation [facility] 12-13-2020 influenza virus vacc ine, unspecified formulation [facility] 06-07-2020 COVID-19 mRNA, Comir yamil (Pfizer) [facility] 05-16-2020 COVID-19 mRNA, Comir yamil (Pfizer) [facility] 12-15-2019 influenza virus vacc ine, unspecified formulation [facility] 12-16-2018 influenza virus vacc ine, unspecified formulation [facility] 06-24-2018 pneumococcal polysaccharide vaccine, 23 valent [facility] 12-17-2017 influenza virus vacc ine, unspecified formulation [facility] 06-18-2017 pneumococcal conjuga te vaccine, 13 [facility] 12-11-2016 influenza virus vacc ine, unspecified formulation [facility] 12-13-2015 tetanus and diphther ia toxoids, adsorbed, preservative free, for adult use (5 Lf of tetanus toxoid and 2 Lf of diphtheria toxoid) [facility] 12-14-2014 tetanus and diphther ia toxoids, adsorbed, preservative free, for adult use (5 Lf of tetanus toxoid and 2 Lf of diphtheria toxoid) [facility] 12-15-2013 tetanus and diphther ia toxoids, adsorbed, preservative free, for adult use (5 Lf of tetanus toxoid and 2 Lf of diphtheria toxoid) [facility] 12-09-2012 tetanus and diphther ia toxoids, adsorbed, preservative free, for adult use (5 Lf of tetanus toxoid and 2 Lf of diphtheria toxoid) [facility] Payers Date Payer Category Payer Medicare [id number] 1958 Unknown [id number] 1950 Unknown [id number] 1950 Unknown [id number] Social History Date Type Detail Facility Unknown if ever smoked [employer] Other Sex Assigned At Sex Assigned At Bir th [employer] Other Start: 1950 Sex Assigned At Male F [facility] Start: 12-05-2023 Tobacco smoking status NHIS Never smoked tobacco (finding) [facility] Clinical Notes 06-19-2022 to 07-24-2023 Note Date & Type Note Facility 07-24-2023 Note Hypertension is unch anged. Continue current treatment regimen. Blood pressure will be reassessed at the next regular appointment. [facility] 07-24-2023 Note Coronary artery dise ase is unchanged. Continue current treatment regimen. Regular aerobic exercise. Continue current medications. Cardiac status will be reassessed in 1 year. [facility] 07-24-2023 Note Lipid abnormalities are unchanged. Very well controlled- liver function normal Lipids will be reassessed annually- sept per PCP [facility] 07-24-2023 Note [facility] CARDIOLOGY PROGR ESS NOTE HPI: Bryant Foreman is a 73 y.o. male here for Follow-up (Yearly follow up ) HPI routine f/U for CAD, silent VA, HTN, and HPL Denied chest pain, shortness [...] reassessed annually- sept per PCP CAD in [place] artery Coronary artery disease is unchanged. Continue current treatment regimen. Regular aerobic exercise. Continue current medications. Cardiac status will be reassessed in 1 year. Benign essential HTN Hypertension is unchanged. Continue current treatment regimen. Blood pressure will be reassessed at the next regular appointment. [facility] 08-01-2022 Note States edema is abou t typical and no worse than usual [facility] 08-01-[address] [facility] 08-01-2022 Note Lipid abnormalities are well controlled Continue lipitor Liver function normal [facility] 08-01-2022 Note Coronary artery dise ase is stable without any concerning symptoms Continue GDMT- ASA, plavix, coreg and lipitor [facility] 08-01-2022 Note Hypertension is well controlled per Cardiac rehab log Continue amlodipine, coreg and losartan [facility] 08-01-2022 Note [facility]TP CARDIOLOGY PROGR ESS NOTE HPI: Bryant Foreman is a 72 y.o. male here for routine f/U for CAD, silent VA, HTN, and HPL Denied chest pain, shortness [...] Continue amlodipine, coreg and losartan CAD in [place] artery Coronary artery disease is stable without any concerning symptoms Continue GDMT- ASA, plavix, coreg and lipitor Mixed hyperlipidemia Lipid abnormalities are well controlled Continue lipitor Liver function normal Silent myocardial infarction (CMS/HCC) stable Edema of lower extremity States edema is about typical and no worse than usual RTC 1 year [facility] 08-01-2022 Note Patient here for 1 y ear follow up CAD, hypertension, and hyperlipidemia. Had routine labs in Dec 2021. Still goes to cardiac rehab every Saturday. Denies chest pain and SOB. Does have some LE edema. Review of Systems All other systems reviewed and are negative. [facility] 06-19-2022 Evaluation note Encounter Date Diagnosis Assessment Notes Jun, Essential hypertension (ICD-10 - I10) GOAL: Maintain BP < 140/90. STATUS: achieved. TIME FRAME: Lifetime goal. Barriers: Non- identifed. Continue current regimen and a low Na+ diet. Regular CV exercise also encouraged. Jun, Coronary artery disease (ICD-10 - I25.10) Stable on present meds. Sees [facility] Cardio. Labs before next OV Jun, Screening PSA (prostate specific antigen) (ICD-10 - Z12.5) Due for lab in December. [employer] Other Evaluation noteNo assessment information available [facility] Work Phone: History general Narrative - Reported* Type Description Date Medical History Essential hypertension Medical History Coronary artery disease Medical History Edema of both lower extremities Medical History SERUM LIPIDS HIGH Surgical History CATH 1 STENT Surgical History STENT RCA Hospitalization History SEE SURGICAL HX [employer] Other Summary Purpose Family History Relationship Condition Age at Onset Recorded Date/T arley Not Specified Family history of colon cancer Unknown Malignant neoplasm Unknown Heart disease Unknown sister History of stroke Unknown Relationship Condition Age at Onset Recorded Date/T arley mother Family history of colon cancer Unknown Malignant neoplasm Unknown Heart disease Unknown sister History of stroke Unknown Advance Directives Advance Directive Response Recorded Date/ Time Advance Directives No March 26, 2023 12:30pm Chief Complaint and Reason for Visit Chief Complaint Amb Documentation 6 MONTH CHECK UP Chief Complaint 6 month f/u Additional Source Comments (unrecognized sect ion and content) No Status Records FoundNo Status Records FoundNo Status Records Found INFORMATION SOURCE (unrecogn ized section and content) DATE CREATED AUTHOR 07/31/2020 [place] [employer] [facility] DATE CREATED AUTHOR AUTHOR'S ORGANIZ ATION 12/12/2021 [facility] DATE CREATED AUTHOR AUTHOR'S ORGANIZ ATION 07/26/[address] [facility] REASON FOR VISIT (unrecogniz ed section [...] June 11, 2023 End: June 11, 2023 Team Status: Active Member Role Status Dates Patsy Escalante MD Primary Care Provide r, Attending Provider Active Start: November 29, 2023 Team Status: Inactive Member Role Status Dates Patsy Escalante MD Primary Care Provide r, Attending Provider Active Start: December 05, 2023 End: December 05, 2023 Goals (unrecognized section and content) Goals [...] BE BASED ON THE PRIMARY CLINICAL RECORDS. [employer] [facility]. provides no warranty or guarantee of the accuracy or completeness of information in this document.
--- NOTE | 2024-04-25 01:41 | ECG_ITS ---
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
[2024-04-25 01:54] VITALS: PULSE 79
--- NOTE | 2024-04-25 01:57 | ED.GENADUL1 ---
HPI HPI - General Adult General Chief complaint: Head Injury Stated complaint: HEAD INJURY Time Seen by Provider: 04/25/24 01:36 Source: patient Mode of arrival: walk-in Limitations: no limitations History of Present Illness HPI narrative: 74-year-old male to the emergency department after chief complaint of fall. Patient reports that at 9 PM he was walking into his apartment when he fell to the ground. He reports he hit his head. He is unsure if he tripped or passed out. He reports some mild pain and bleeding to the left side of his head. He has no other symptoms. He denies any vision changes, numbness, weakness, tingling, difficulty walking. He is otherwise been at his baseline health. Denies any chest pain or shortness of breath. Related Data Home Medications ?Medication ?Instructions ?Recorded ?Confirmed amlodipine 10 mg tablet 10 mg PO DAILY 02/10/23 04/25/24 atorvastatin 80 mg tablet 80 mg PO DAILY 02/10/23 04/25/24 carvedilol 25 mg tablet 25 mg PO Q12H 02/10/23 04/25/24 clopidogrel 75 mg tablet 75 mg PO DAILY 02/10/23 04/25/24 losartan 100 mg tablet 100 mg PO DAILY 02/10/23 04/25/24 Fish Oil PO DAILY 04/25/24 aspirin 81 mg tablet,delayed 81 mg PO DAILY 04/25/24 04/25/24 release ([place] Aspirin) multivitamin (Daily Multi-Vitamin 1 tab PO DAILY 04/25/24 04/25/24 tablet) Allergies Allergy/AdvReac Type Severity Reaction Status Date / Time No Known Drug Allergies Allergy Verified 04/25/24 01:50 Opioid HPI Opioid Management Most Recent Opioid Data: No Data to Display Review of Systems ROS Status of ROS 10 or more systems reviewed and unremarkable except as noted in history and below PFSH PFSH Social History Smoking status: Never smoker Little interest or pleasure in doing things: not at all Feeling down, depressed, or hopeless: not at all Exam Narrative Exam Narrative: VITALS: I have reviewed the triage vital signs. GENERAL: Well developed, well appearing adult male in no acute distress. NEURO: Alert and oriented. Moves all extremities. Face is symmetric and expressive. EYES: PERRL. No scleral icterus or conjunctival injection. No discharge. HENT: Normocephalic, small abrasion/laceration to the left parietal region with venous bleeding. Hearing is grossly intact. Nares grossly patent and without discharge. Mucous membranes moist. NECK: No JVD. Patient moves neck without restriction. No midline cervical tenderness. CARDIO: Rhythm regular. Normal rate. No murmur, rub, or gallop. Pulses equal bilaterally in the upper and lower extremity. No lower extremity edema. PULM: Lungs clear to auscultation in all echols. No wheezes, rales, or rhonchi. No conversational dyspnea. No splinting, stridor, or accessory muscle use. GI/: Abdomen is soft and non-tender. Normoactive bowel sounds. EXTREMITIES: Symmetric muscle bulk. No joint swelling. No clubbing, cyanosis, or deformity. SKIN: Warm and dry. Normal turgor. No rash or lesions appreciated. PSYCH: Mood, affect, and interaction is appropriate to the setting. Constitutional Vital Signs, click to edit/add: Last Vital Signs Temp 98.7 F 04/25/24 01:39 Pulse 85 04/25/24 01:39 Resp 18 04/25/24 01:39 BP 160/84 H 04/25/24 01:39 Pulse Ox 97 04/25/24 01:39 O2 Del Method Room Air 04/25/24 01:39 Course Vital Signs Vital signs: Vital Signs Temperature 98.7 F 04/25/24 01:39 Pulse Rate 85 04/25/24 01:39 Respiratory Rate 18 04/25/24 01:39 Blood Pressure 160/84 H 04/25/24 01:39 Pulse Oximetry 97 04/25/24 01:39 Oxygen Delivery Method Room Air 04/25/24 01:39 Temperature 98.7 F 04/25/24 01:39 Pulse Rate 85 04/25/24 01:39 Respiratory Rate 18 04/25/24 01:39 Blood Pressure 160/84 H 04/25/24 01:39 Pulse Oximetry 97 04/25/24 01:39 Oxygen Delivery Method Room Air 04/25/24 01:39 Medical Decision Making MDM Narrative Medical decision making narrative: 74-year-old male to the emergency department after a fall that occurred at home. Vital stable, the patient is afebrile. He had a small venous bleed from a superficial vessel to his left parietal region. This was repaired. Basic labs ordered. EKG and basic labs. Lab work reviewed and noted. He has a slight increase in his creatinine which appears to be a trend. Clinically he appears euvolemic today. EKG normal sinus rhythm. No STEMI. Normal QTc. CT head: No acute traumatic injury CT cervical spine: No acute traumatic injury Patient was able to ambulate without any difficulty. Vitals remained stable. Suture removal in the next 5 to 7 days. He will follow-up with PCP regarding this visit. Return precautions were discussed. All questions were answered. The patient was discharged home. Medical Records Medical records reviewed: Yes I reviewed the patient's medical records Lab Data Lab results reviewed: Yes I reviewed the patient's lab results Labs: Lab Results 04/25/24 Range/Units 02:12 WBC 8.8 (4.0-11.0) 10^3/uL RBC 4.24 L (4.70-6.10) 10^6/uL Hgb 13.7 L (14.0-18.0) g/dL Hct 39.4 L (42.0-54.0) % MCV 92.9 (80.0-94.0) fL MCH 32.3 (25.9-34.0) pg MCHC 34.8 (29.9-35.2) g/dL RDW 12.9 (11.0-15.0) % Plt Count 227 (150-450) 10^3/uL MPV 10.4 (9.5-13.5) fL Neut % (Auto) 51.1 (43.0-75.0) % Lymph % (Auto) 33.3 (20.5-60.0) % [place] % (Auto) 11.3 (1.7-12.0) % Eos % (Auto) 3.6 (0.9-7.0) % Baso % (Auto) 0.6 (0.2-2.0) % Neut # (Auto) 4.5 (1.4-6.5) 10^3/uL Lymph # (Auto) 2.9 (1.2-3.8) 10^3/uL [place] # (Auto) 1.0 H (0.3-0.8) 10^3/uL Eos # (Auto) 0.3 (0.0-0.7) 10^3/uL Baso # (Auto) 0.1 (0.0-0.1) 10^3/uL Abs Immat Gran (auto) 0.01 (0.00-0.03) 10^3/uL Imm/Tot Granulo (auto) 0.1 (0.0-0.5) % Sodium 142 (136-145) mmol/L Potassium 3.6 (3.5-5.1) mmol/L Chloride 109 H (98-107) mmol/L Carbon Dioxide 28.9 (21.0-32.0) mmol/L Anion Gap 7.7 BUN 29.0 H (7.0-18.0) mg/dL Creatinine 1.52 H (0.70-1.30) mg/dL Est GFR ( Amer) 55 L (>=60 mL/min/1.73m^2) Est GFR (Non-Af Amer) 45 L (>=60 mL/min/1.73m^2) BUN/Creatinine Ratio 19.1 Glucose 124 H (74-106) mg/dL Calcium 9.1 (8.5-10.1) mg/dL Troponin I High Sens 20.9 (4.0-76.1) pg/mL Imaging Data CT scan - head: Attestation: I have reviewed the pertinent imaging results. Radiologist's impression: See document in PACS Discharge Plan Discharge Chief Complaint: Head Injury Clinical Impression: Accidental fall, Closed head injury, Laceration of scalp Patient Disposition: Home, Self-Care Time of Disposition Decision: 03:39 Condition: Good Mode of Transportation: Private Vehicle Prescriptions / Home Meds: No Action atorvastatin 80 mg tablet 80 mg PO DAILY carvedilol 25 mg tablet 25 mg PO Q12H clopidogrel 75 mg tablet 75 mg PO DAILY amlodipine 10 mg tablet 10 mg PO DAILY losartan 100 mg tablet 100 mg PO DAILY multivitamin [Daily Multi-Vitamin] Tablet 1 tab PO DAILY aspirin [[place] Aspirin] 81 mg tablet,delayed release (DR/EC) 81 mg PO DAILY Fish Oil PO DAILY Print Language: Puerto Rican Instructions: Head Injury (ED), Fall Prevention (ED), Head Laceration (ED) Additional Instructions: Call the office of your primary care doctor to arrange for follow-up within the above-stated timeframe. Your ED visit was focused on your acute issue and does not replace primary care. You should review your labs, imaging, and diagnoses from this ED visit with your primary care physician. There may be non-emergent/ incidental findings that need further evaluation. You should review your vital signs including blood pressure with your PCP. If you were prescribed medications you should discuss possible side-effects and drug interactions with your pharmacist. Call 911 or go to the nearest Emergency Department if you develop any new or worsening symptoms. Seek immediate medical attention if you develop: new or worsening headache, nausea, vomiting, confusion, weakness, loss of motion in your arms or legs, loss of control of your urine or stool, difficulty waking from sleep, or any new or worsening symptoms. Keep original bandage on for 24 hours after which the wound may be open to the air. You may gently clean the site with soap and water twice daily after 24 hours. You can apply anti-bacterial ointment to the wound twice daily after cleaning. Do not go swimming until sutures are removed and wound has healed completely. MCFP cosmetic appearance of the wound will be best with decreased sun exposure and application of sunscreen for the first year following suture removal. Seek medical care if your wound develops increasing redness, warmth, swelling, or purulent discharge. Your sutures will need to be removed in 5-7 days by a healthcare provider so the wound can be re- examined. Referrals: Patsy Escalante MD [Primary Care Provider] - 1 week Procedures ED Procedure Instructions Procedures Procedures: Laceration Repair Wound location: Left parietal scalp Wound size: 3 mm Wound complexity: Superficial, superficial vein injury Verbal consent was obtained for laceration repair. Lidocaine w/ epinephrine 4cc infiltration for local anesthesia. Wound was cleansed and then irrigated with normal saline under pressure. Wound explored. No foreign bodies were identified. 1x 4-O prolene figure of eight suture was used to repair the laceration/ control the bleeding by tying off superficial vein. Adequate wound approximation was obtained. The patient tolerated the procedure well and there were no complications. Saturnino Pierre DO
[2024-04-25 02:28] LABS: Basophils Absolute Auto 0.1 10^3/uL (0.0-0.1); Basophils Percent Auto 0.6 % (0.2-2.0); Eosinophils Absolute Auto 0.3 10^3/uL (0.0-0.7); Eosinophils Percent Auto 3.6 % (0.9-7.0); Hematocrit 39.4 % (42.0-54.0); Hemoglobin 13.7 g/dL (14.0-18.0); Immature Granulocytes Abs Auto 0.01 10^3/uL (0.00-0.03); Immature Granulocytes Pct Auto 0.1 % (0.0-0.5); Lymphocytes Absolute Auto 2.9 10^3/uL (1.2-3.8); Lymphocytes Percent Auto 33.3 % (20.5-60.0); Mean Corpuscular HGB Conc 34.8 g/dL (29.9-35.2); Mean Corpuscular Hemoglobin 32.3 pg (25.9-34.0); Mean Corpuscular Volume 92.9 fL (80.0-94.0); Mean Platelet Volume 10.4 fL (9.5-13.5); Monocytes Percent Auto 11.3 % (1.7-12.0); Neutrophils Absolute Auto 4.5 10^3/uL (1.4-6.5); Neutrophils Percent Auto 51.1 % (43.0-75.0); Platelet Count 227 10^3/uL (150-450); Red Blood Count 4.24 10^6/uL (4.70-6.10); Red Cell Distribution Width 12.9 % (11.0-15.0); White Blood Count 8.8 10^3/uL (4.0-11.0)
[2024-04-25 02:34] LABS: Anion Gap 7.7; BUN Creatinine Ratio 19.1; Calcium 9.1 mg/dL (8.5-10.1); Carbon Dioxide 28.9 mmol/L (21.0-32.0); Chloride 109 mmol/L (98-107); Estimated GFR (African America 55 (>=60 mL/min/1.73m^2); Estimated GFR (Non-African Ame 45 (>=60 mL/min/1.73m^2); Glucose 124 mg/dL (74-106); Potassium 3.6 mmol/L (3.5-5.1); Sodium 142 mmol/L (136-145)
[2024-04-25 02:52] LABS: Troponin I High Sensitivity 20.9 pg/mL (4.0-76.1)
[2024-04-25] MEDS: ADACEL DIPH,PERTUSS(ACELL),TET VAC/PF 0.5 ML ADULT SYRINGE IM (02:52)
[2024-04-25 03:45] VITALS: BP 166/91; PULSE 77; O2SAT 98
[2024-04-25 04:11] LABS: Bilirubin Urine NEGATIVE (NEGATIVE); Blood Urine NEGATIVE (NEGATIVE); Clarity Urine CLEAR (CLEAR); Color Urine LT. YELLOW (YELLOW); Glucose Urine UA NEGATIVE (NEGATIVE); Ketones Urine NEGATIVE (NEGATIVE); Nitrite Urine NEGATIVE (NEGATIVE); Protein Urine NEGATIVE (NEG/TRACE); Urobilinogen Urine 0.2 EU/dL (0.2-1.0)
[2024-04-25 04:17] LABS: Leukocyte Esterase Urine NEGATIVE (NEGATIVE)
[2024-04-25 04:20] LABS: RBC Urine 0-2 #/HPF (0-2); WBC Urine 0-2 #/HPF (NONE SEEN)
[2024-04-25 04:21] LABS: Bacteria Urine NONE SEEN #/HPF (NONE SEEN); Crystals Seen? None Seen #/HPF (None Seen); Mucus Urine NONE SEEN (NONE SEEN); Squamous Epithelial Cell Urine NONE SEEN #/LPF (NONE/RARE)
[2024-04-25 04:22] LABS: Cast Seen? NONE SEEN #/LPF (NONE SEEN); Urine Culture Indicated NO
== END 2024-04-25 03:49 | disposition home or self-care (01) ==
PROVIDERS: Emergency Provider Student in an Organized Health Care Education/Training Program; PCP Family Medicine
DX: S01.01XA Laceration without foreign body of scalp, initial encounter (principal); S09.8XXA Other specified injuries of head, initial encounter; W18.39XA Other fall on same level, initial encounter; Z23 Encounter for immunization
CPT/HCPCS: 12001; 36415; 70450; 72125; 80048; 81001; 84484; 85025; 90471; 90715; 93005; 99285

== ENCOUNTER 2024-08-24 11:02 | Outpatient (OUT) | payer MEDICARE, SELFPAY ==
--- NOTE | 2024-08-24 | NM_ITS ---
Patient Name: BRYANT FOREMAN MR#: [id number] : 1950 Exam Date: 08/24/2024 Ordering Doctor: DR LUCY WOODALL M.D. RADIOLOGY REPORT PROCEDURE: NM STEPHANIE PERF SPECT REST STR COMPARISON: None. INDICATIONS: CHEST PAIN, CORONARY ARTERY DISEASE TECHNIQUE: Exam Description: Stress/Rest one day protocol gated SPECT Rest Imagin.6 mCi Tc-99m Cardiolite IV on 08/24/2024 Stress Imaging 29.8 mCi Tc-99m Cardiolite IV on 08/24/2024 Exercise Protocol: 0.4 mg Lexiscan given IV Heart Rate (bpm): Rest: 67 Max: 120 PMHR: 81 Blood Pressure: Rest: 132/58 Max: 138/78 Symptoms: Rest and peak stress ECG findings were pending and the EKG portion of the study was pending per attending physician [facility] . For more details please see separate cardiac stress test report. FINDINGS: QUALITY OF STUDY: Good PERFUSION DEFECT: LOCATION: Inferior and inferior apical SIZE: Medium SEVERITY: Moderate TYPE: Reversible WALL MOTION: Hypokinetic inferior wall LV SIZE: 102 mL. TID / TCD: 0.8 LVEF: Calculated EF 63%. SUMMARY: Abnormal myocardial perfusion imaging study CONCLUSION: Abnormal myocardial perfusion stress test showing evidence of inferior ischemia of moderate severity Normal left ventricular systolic function with hypokinetic inferior wall, ejection fraction 63% No evidence of transient ischemic dilatation, TID 0.8 EKG portion of stress test is reported separately Dictated by: Best Causey MD on 08/25/2024 at 15:48 Approved by: Best Causey MD on 08/25/2024 at 15:53
--- OUTSIDE RECORDS SUMMARY | 2024-08-24 11:06 | XMS_ITS | Clinical Summary ---
Author Organization [facility] Address [address] [place] [address] Care Team Providers Care Software Quality Tester Name Role Phone Patsy Escalante MD Primary Care Provider [phone] Social History Tobacco Use Types Packs/Day Years Used Date Smoking Tobacco: Never Assessed Sex and Gender Information Value Date Recorded Sex Assigned at Not on file Legal Sex Male 8:33 AM EST Gender Identity Male Sexual Orientation Not on file Plan of Treatment Health Maintenance Due Date Last Done Comments HEPATITIS C VIRUS SCREENING 1950 TETANUS 1950 TDAP (ADULT) 1970 LIPID SCREENING 1991 COLORECTAL CANCER SCREENING DISCUSSION 01/17/1996 PNEUMOCOCCAL VACCINE SERIES (1 of 1 - PCV) 2001 ZOSTER (SHINGLES) VACCINE (1 of 2) 2001 ABDOMINAL AORTIC ANEURYSM HI GH RISK SCREEN 01/17/2016 COVID-19 VACCINE ( - 2023-2 5 season) 2023 INFLUENZA VACCINE (Season Ended) 2024 RSV VACCINE (1 - 1-dose 75+ series) 2026 HEP B VACCINE Aged Out No longer elig ible based on patient's age to complete this topic Goals Goal Patient Goal Type Associated Problems Recent Progress Patient-Stated? Author Physical Therapy Physical Therapy No Yojana Abel, PT Note: Goals to be achieved by time patient leaves for his home around May 05, 2016(at that time anticipated he will continue therapy closer to his home): 1. Initiate home program so patient can start to manage impairments. Met. 2. PROM right shoulder flexion to 140 degrees so improved motion in joint for when patient can start to actively use shoulder for basic ADL's. Met. 3. PROM right shoulder abduction to 140 degrees so improved motion in joint for when patient can start to actively use shoulder for basic ADL's. Met. 4. PROM right shoulder external rotation with arm by side is 50 degrees so improved motion in joint for when patient can start to actively use shoulder for basic ADL's. Progressing towards. 5. PROM right shoulder internal rotation with arm in scapular plan is 50 degrees so improved motion in joint for when patient can start to actively use shoulder for basic ADL's. Progressing towards. Insurance MEDICARE A AND B [facility] Care Teams Software Quality Tester Relationship Specialty Start Date End Date Patsy Escalante MD PCP - General Family Medicine 03/08/16
--- OUTSIDE RECORDS SUMMARY | 2024-08-24 11:06 | XMS_ITS | Clinical Summary ---
Author Organization [facility] Address [address] [place] [address] Care Team Providers Care Director Of Business Development Name Role Phone Patsy Escalante MD Primary Care Provider [phone] Allergies No known active allergies Medications amLODIPine (Norvasc) 10 mg tablet amlodipine 10 mg tablet Active atorvastatin (Lipitor) 80 mg tablet atorvastatin 80 mg tablet Active carvedilol (Coreg) 25 mg tablet Take 25 mg by mouth with breakfast and with evening meal. Active clopidogrel (Plavix) 75 mg tablet clopidogrel 75 mg tablet Active losartan (Cozaar) 100 mg tablet losartan 100 mg tablet Active nitroglycerin (Nitrostat) 0.4 mg SL tablet nitroglycerin 0.4 mg sublingual tablet Active aspirin 81 mg EC tablet Take 81 mg by mouth in the morning. Active Active Problems Problem Noted Date Diagnosed Date CAD in [place] artery 08/01/2022 Assessment & Plan (07/24/2023 1:18 PM EDT): Coronary artery disease is unchanged. Continue current treatment regimen. Regular aerobic exercise. Continue current medications. Cardiac status will be reassessed in 1 year. Assessment & Plan (08/01/2022 3:02 PM EDT): Coronary artery disease is stable without any concerning symptoms Continue GDMT- ASA, plavix, coreg and lipitor Mixed hyperlipidemia 08/01/2022 Assessment & Plan (07/24/2023 1:17 PM EDT): Lipid abnormalities are unchanged. Very well controlled- liver function normal Lipids will be reassessed annually- sept per PCP Assessment & Plan (08/01/2022 3:02 PM EDT): Lipid abnormalities are well controlled Continue lipitor Liver function normal Benign essential HTN 08/01/2022 Assessment & Plan (07/24/2023 1:18 PM EDT): Hypertension is unchanged. Continue current treatment regimen. Blood pressure will be reassessed at the next regular appointment. Assessment & Plan (08/01/2022 3:01 PM EDT): Hypertension is well controlled per Cardiac rehab log Continue amlodipine, coreg and losartan Silent myocardial infarction 08/01/2022 Assessment & Plan (08/01/2022 3:03 PM EDT): stable Edema of lower extremity 07/13/2020 Assessment & Plan (08/01/2022 3:03 PM EDT): States edema is about typical and no worse than usual Encounters Date Type Department Care Team Description 07/07/2024 1:00 PM EDT Office Visit [facility] [place] [address] [place] [address] Alexis Lopez MD Other chest pain; Coronary artery disease, unspecified vessel or lesion type, unspecified whether angina present, unspecified whether citizen [place] or transplanted heart from Last 3 Months Family History Medical History Relation Name Comments Coronary artery disease Other Diabetes Other Relation Name Status Comments Other Social History Tobacco Use Types Packs/Day Years Used Date Smoking Tobacco: Never Smokeless Tobacco: Never Tobacco Cessation:Counseling Given: Not Answered Alcohol Use Standard Drinks/Week Comments Yes 0 (1 standard drink = 0.6 oz pur e alcohol) occasional [place] Safety & Environment Answer Date Rec orded Fear of Current or Ex-Partner Not on file Emotionally Abused Not on file 04/25/2023 Physically Abused Not on file 04/25/2023 Sexually Abused Not on file 04/25/2023 Physically or Sexually Abused Not on file Sex and Gender Information Value Date Recorded Sex Assigned at Not on file Legal Sex Male 10:44 PM EDT Gender Identity Not on file Sexual Orientation Not on file Last Filed Vital Signs Vital Sign Reading Time Taken Comments Blood Pressure 149/79 07/07/2024 1:00 PM EDT Pulse 68 07/07/2024 1:00 PM EDT Temperature - - Respiratory Rate 12 07/24/2023 12:58 PM EDT Oxygen Saturation 99% 07/07/2024 1:00 PM EDT Inhaled Oxygen Concentration - - Weight 93.9 kg (207 lb) 07/07/2024 1:00 PM EDT Height 177.8 cm (5' 10 ) 07/07/2024 1:00 PM EDT Body Mass Index 29.7 07/07/2024 1:00 PM EDT Plan of Treatment Health Maintenance Due Date Last Done Comments CT Colonography 1950 Colonoscopy 1950 Colorectal Cancer Screening 1950 FIT-DNA 1950 FIT 1950 FOBT 1950 Medicare Annual Wellness (AWV) 1950 Sigmoidoscopy 1950 Depression Screening 1963 Zoster Vaccines (1 of 2) 2001 Fall Risk Screening 01/17/2016 COVID-19 Vaccine ( season) 2024 02/17/2024, 02/12/2023, 01/09/2022, Additional history exists Adult Tetanus 04/25/2034 04/25/2024 Pneumococcal Vaccine: 50+ Years Completed 06/24/2018, 06/18/2017 Influenza Vaccine Completed 12/05/2023, , 12/17/2017, Additional history exists HIB Vaccines Aged Out No longer eligi ble based on patient's age to complete this topic HPV Vaccines Aged Out No longer eligi ble based on patient's age to complete this topic IPV Vaccines Aged Out No longer eligi ble based on patient's age to complete this topic Meningococcal B Vaccine Aged Out No l onger eligible based on patient's age to complete this topic Meningococcal Vaccine Aged Out No carroll quyen eligible based on patient's age to complete this topic Rotavirus Vaccines Aged Out No longer eligible based on patient's age to complete this topic Insurance MEDICARE Care Teams Director Of Business Development Relationship Specialty Start Date End Date Patsy Escalante MD [address] [place] [address] #A PCP - General 08/01/22
--- OUTSIDE RECORDS SUMMARY | 2024-08-24 11:06 | XMS_ITS | Clinical Summary ---
Author Organization [employer] Address [id number] [address] [place] [address] Care Team Providers Care Horse Racing Analyst Name Role Phone Patsy Escalante MD Primary Care Provider [phone] Allergies No known active allergies Medications carvedilol (COREG) 25 mg tablet Take 25 mg by mouth 2 (two) times a day with meals. Active clopidogrel (PLAVIX) 75 mg tablet Take 75 mg by mouth daily. Active losartan-hydroC HLOROthiazide (HYZAAR) 100-12.5 mg per tablet Take 1 tablet by mouth daily. Active aspirin 325 mg EC tablet Take 325 mg by mouth 3 (three) times a week. Active atorvastatin (LIPITOR) 80 mg tablet Take 80 mg by mouth daily. Active amLODIPine (NORVASC) 10 mg tablet Take 10 mg by mouth nightly. Active omega 3-rtw-jsr-fish oil (FISH OIL) 300-1,000 mg capsule Take by mouth daily. Active nitroglycerin (NITROSTAT) 0.[address] 0.4 mg under the tongue every 5 (five) minutes as needed for chest pain. Active Family History Medical History Relation Name Comments Diabetes Father Heart disease Father Hypertension Father Cancer Mother Diabetes Mother Heart disease Mother Hypertension Mother Relation Name Status Comments Father Mother Social History Tobacco Use Types Packs/Day Years Used Date Smoking Tobacco: Never Smokeless Tobacco: Never Alcohol Use Standard Drinks/Week Comments Not Currently 0 (1 standard drink = 0.6 oz pur e alcohol) AUDIT-C Answer Date Recorded Frequency of Alcohol Consumption Never 03/17/2019 Average Number of Drinks Not on file 020 Frequency of Binge Drinking Not on file 03/04 Childcare Answer Date Recorded Childcare Unknown 03/17/2019 Employment Answer Date Recorded Employment Unknown 03/17/2019 Purpose - Life Answer Date Recorded Purpose and direction in life Unknown Sex and Gender Information Value Date Recorded Sex Assigned at Not on file Legal Sex Male 10:53 AM EST Gender Identity Not on file Sexual Orientation Not on file Last Filed Vital Signs Vital Sign Reading Time Taken Comments Blood Pressure 148/86 03/18/2019 5:45 PM EST Pulse 74 03/18/2019 5:40 PM EST Temperature 36.3 C (97.3 F) 03/18/2019 4:35 PM EST Respiratory Rate 14 03/18/2019 5:40 PM EST Oxygen Saturation 96% 03/18/2019 5:45 PM EST Inhaled Oxygen Concentration - - Weight 94.3 kg (208 lb) 03/18/2019 11:58 AM EST Height 177.8 cm (5' 10 ) 03/18/2019 11:58 AM EST Body Mass Index 29.84 03/18/2019 11:58 AM EST Plan of Treatment Health Maintenance Due Date Last Done Comments Depression Screening 1962 Tobacco Screening 1963 Adult BMI Screening 1969 DTaP,Tdap and Td Vaccines (1 - Tdap) 1970 Zoster (Shingles) Vaccine (1 of 2) 2001 Fall Risk Screening 01/17/2016 Influenza Vaccine 11/02/2024 12/17/2017, , 12/13/2015 Medical Devices Implanted Type Area Return To Service Inspector Device Identifier Shelf Expiration Date Model / Serial / Lot Plt Bn 3 H Std Ti L Dst Volar Rad - Sna - [id number] Implanted:Qty: 1 on 03/18/2019 by Kirill Joshi DO at [facility] Plate Left: Wrist Arthrex 02/12/2025 [id number] 03 / NA / NA Scr Bn 20mm 2.4mm Va St Sld - Sna - [id number] Implanted:Qty: 1 on 03/18/2019 by Kirill Joshi DO at [facility] Screw Left: Wrist Arthrex 02/12/2025 [id number]-8724V-20 / NA / NA Scr Bn 20mm 2.4mm Va Lck Smth - Sna - [id number] Implanted:Qty: 1 on 03/18/2019 by Kirill Joshi DO at [facility] Screw Left: Wrist Arthrex 02/12/2025 [id number]- 20 / NA / NA Scr Bn 24mm 2.4mm Va [address] Sld - Sna - [id number] Implanted:Qty: 2 on 03/18/2019 by Kirill Joshi DO at [facility] Screw Left: Wrist Arthrex 02/12/2025 AR-8724V-24 / NA / NA Scr Bn 26mm 2.4mm Va [address] Sld - Sna - [id number] Implanted:Qty: 1 on 03/18/2019 by Kirill Joshi DO at [facility] Screw Left: Wrist Arthrex 02/12/2025 AR-8724V-26 / NA / NA Scr Bn 28mm 2.4mm [address] Sld - Sna - [id number] Implanted:Qty: 1 on 03/18/2019 by Kirill Joshi DO at [facility] Screw Left: Wrist Arthrex 02/12/2025 AR-8724V-28 / NA / NA Scr Bn L14mm Od3.5mm Ti Shailesh Ank Ft Self Drl Sergo - Sna - [id number] Implanted:Qty: 2 on 03/18/2019 by Kirill Joshi DO at [facility] Screw Left: Wrist Arthrex 02/12/2025 AR-8935L-14 / NA / NA Scr Bn L14mm Od3.5mm Ti- Shailesh Self Drl Nonlocking Ft - Sna - [id number] Implanted:Qty: 1 on 03/18/2019 by Kirill Joshi DO at [facility] Screw Left: Wrist Arthrex 02/12/2025 AR-8935-14 / NA / NA Insurance MEDICARE [facility] Care Teams Horse Racing Analyst Relationship Specialty Start [place] [address] [place] [id number] PCP - General Family Medicine 03/18/19
--- OUTSIDE RECORDS SUMMARY | 2024-08-24 11:06 | XMS_ITS | Clinical Summary ---
Author Organization [facility] Address [address] [place] [address] Care Team Providers Care Electric Wheelchair Repairer Name Role Phone Unavailable Primary Care Provider Unavailabl e Social History Tobacco Use Types Packs/Day Years Used Date Smoking Tobacco: Never Assessed Sex and Gender Information Value Date Recorded Sex Assigned at Not on file Legal Sex Male 12:51 PM EST Gender Identity Not on file Sexual Orientation Not on file Plan of Treatment Not on file
--- OUTSIDE RECORDS SUMMARY | 2024-08-24 11:06 | XMS_ITS | Referral Summary ---
Author Organization [facility] Address [address] [place] [address] Care Team Providers Care Laborer Driver Name Role Phone Patsy Escalante MD Primary Care Provider [phone] Encounters Date Type Department Care Team Description 07/07/2024 1:00 PM EDT Office Visit [facility] Heart at [facility] [address] [place] [phone] Alexis Lopez MD Other chest pain; Coronary artery disease, unspecified vessel or lesion type, unspecified whether angina present, unspecified whether [place] or transplanted heart from Last 3 Months Allergies No known active allergies Medications amLODIPine [...] Problem Noted Date Diagnosed Date CAD in [place] artery 08/01/2022 Assessment & Plan (07/24/2023 1:18 [...] about typical and no worse than usual Social History Tobacco Use Types Packs/Day Years [...] 07/07/2024 1:00 PM EDT Plan of Treatment Not on file Insurance MEDICARE [facility] Care Teams Laborer Driver Relationship Specialty Start Date End Date Patsy Escalante MD [address] [facility] [address] PCP - General 08/01/22
--- NOTE | 2024-08-24 13:15 | PC.NURSE ---
Nursing Note Cardiac Stress Test Reviewed: Medication, allergies and patient history reviewed. Stress Test: [x ] Patient tolerated stress test well. [x ] Patient unable to tolerate walking on treadmill. Switched to Lexiscan stress test. [x ] No chest pain noted per patient [ ] Chest pain that resolved prior to leaving stress lab. [ ] No dyspnea noted. [x ] Dyspnea that resolved prior to leaving stress lab. [x ] Patient left stress lab asymptomatic and hemodynamically stable. [ ] Patient taken to the Emergency Room due to non-resolving symptoms following stress test. [ ] Patient achieved target heart rate. [x ] Patient unable to achieve target heart rate. [ ] Aminophylline administered as reversal agent to Lexiscan (Regadenoson). [ ] Nitro administered. Nursing Comments:Pt attempted Cardiolite test but unable to reach target HR. Pt was switched to Lexiscan and tolerated well. NO symptoms at end of test and pt ambulated to cafeteria for lunch piror to second set of images.
[2024-08-24] MEDS: REGADENOSON 0.4 MG/5 ML SYRINGE IV (13:20)
--- NOTE | 2024-08-24 18:44 | PM.STRESS ---
Stress Test Stress Test Allergies Allergy/AdvReac Type Severity Reaction Status Date / Time No Known Drug Allergies Allergy Verified 04/25/24 01:50 Requesting physician: Alexis Lopez Procedure: This was a Treadmill stress switched to Lexiscan stress test with myocardial perfusion imaging performed at the [facility] on 08/24/2024. Intravenous line was secured. The patient was attached to electrocardiographic monitoring. Baseline vital signs and ECG were obtained. The patient attempted treadmill exercise stress test but was unable to reach target heart rate. He exercised for 7 minutes according to Benji protocol before stopping. Therefore Lexiscan 0.4 mg was administered intravenously followed by administration of Cardiolite. The patient then went on to obtain myocardial perfusion imaging. Resting heart rate was 67 bpm and peak heart rate was 120 bpm. Resting blood pressure was 132/58 and peak blood pressure was 138/78. General Information: Reason for Stress Test: Chest pain. CAD. Cardiac History and Risk Factors: CAD, hypertension, myocardial infarction, stents. Resting 12 - Lead Electrocardiogram: Sinus rhythm, normal ECG. Stress Test: Protocol: Treadmill stress switched to pharmacologic stress due to inability to achieve target heart rate. Exercise Capacity: Reduced. Blood Pressure Response: Resting hypertension, appropriate blood pressure response to exercise. Rhythm: Sinus rhythm with frequent PVCs sometimes in couplets during treadmill exercise. No arrhythmias seen after Lexiscan infusion. ST - Response: No ischemic ST changes seen. Patient Response: Shortness of breath, no chest pain. Interpretation: 1. No evidence of ischemic ST changes seen during treadmill exercise and following infusion of Lexiscan. 2. Myocardial perfusion images will be reported separately.
== END 2024-08-24 11:03 | disposition home or self-care (01) ==
LOC: NM 11:02
PROVIDERS: PCP Family Medicine; Visit Provider Internal Medicine Interventional Cardiology
DX: R07.89 Other chest pain (principal); I25.10 Atherosclerotic heart disease of native coronary artery without angina pectoris
CPT/HCPCS: 78452; 93017; A9500; J2785

== ENCOUNTER 2024-09-10 12:33 | Outpatient (OUT) | payer MEDICARE, SELFPAY ==
--- OUTSIDE RECORDS SUMMARY | 2024-09-10 12:35 | XMS_ITS | Clinical Summary ---
Author Organization [facility] Address [address] [place] [address] Care Team Providers Care Jute Bag Clipper Name Role Phone Patsy Escalante MD Primary Care Provider [phone] Allergies No known active allergies Medications amLODIPine [...] Active Problems Problem Noted Date Diagnosed Date Abnormal stress test 09/02/2024 Angina pectoris, unstable 09/02/2024 CAD in [place] artery 08/01/2022 Assessment & Plan (07/24/2023 1:18 [...] Encounters Date Type Department Care Team Description 09/02/2024 Orders Only [address] [address] CalixtoDeborah MA Abnormal stress test (Primary Dx); Angina pectoris, unstable (CMS/HCC) 08/27/2024 Orders Only [place] [address] [place] [address] Provider, MD Amilcar 07/07/2024 1:00 PM EDT Office Visit [address] [address] Alexis Lopez MD Other chest pain; Coronary artery disease, unspecified vessel or lesion type, unspecified whether angina present, unspecified whether [place] or transplanted heart from Last 3 Months [...] 07/07/2024 1:00 PM EDT Plan of Treatment Upcoming Encounters Date Type Department Care Team (Late st Contact Info) Description 09/14/2024 11:30 AM EDT Hospital Encounter [facility] Heart [facility] [address] [place] [phone] Alexis Lopez MD [address] [place] [phone] Abnormal stress test; Angina pectoris, unstable (CMS/HCC) 09/14/2024 11:30 AM EDT - 09/14/2024 12:30 PM EDT Surgery [facility] Heart [facility] [address] [place] [phone] Alexis Lopez MD [address] [place] [phone] Coronary angiography Health Maintenance Due Date Last Done Comments CT Colonography 1950 Colonoscopy 1950 Colorectal Cancer Screening 1950 FIT-DNA 1950 FIT 1950 FOBT 1950 Medicare Annual Wellness (AWV) 1950 Sigmoidoscopy 1950 Depression Screening 1963 Zoster Vaccines (1 of 2) 2001 Fall Risk Screening 01/17/2016 COVID-19 Vaccine ( season) 2024 02/17/2024, 02/12/2023, 01/09/2022, Additional history exists Influenza Vaccine (#1) 2024 , 12/21/2021, 12/17/2017, Additional history exists Adult Tetanus 04/25/2034 04/25/2024 Pneumococcal Vaccine: 50+ Years Completed 06/24/2018, 06/18/2017 HIB Vaccines Aged Out No longer eligi [...] on patient's age to complete this topic Procedures Procedure Name Priority Date/Time Associated Diagnosis Comments TREADMILL STRESS MYOCARDIAL PERFUSION IMAGING Routine 08/24/2024 9:53 AM EDT from Last 3 Months Results * Treadmill Stress Myocardial Perfusion Imaging (08/24/2024 9:53 AM EDT) Anatomical Region Laterality Modality Other us Historical Provider CV STRESS PROCEDURES Sudha clancy Result from Last 3 Months Insurance MEDICARE [facility] Care Teams Jute Bag Clipper Relationship Specialty Start Date End Date Patsy Escalante MD [address] [facility] [address] PCP - General 08/01/22
--- OUTSIDE RECORDS SUMMARY | 2024-09-10 12:35 | XMS_ITS | Clinical Summary ---
Author Organization [facility] [employer] [facility] Address [id number] [address] [place] [address] Care Team Providers Care Telephone Assembler Name Role Phone Patsy Escalante MD Primary Care Provider [phone] Allergies No known active allergies Medications carvedilol [...] 10 mg by mouth nightly. Active omega 0-dqf-cmm-fish oil (FISH OIL) 300-1,000 mg capsule Take [...] , 12/13/2015 Medical Devices Implanted Type Area Advanced Solutions Architect Device Identifier Shelf Expiration Date Model / Serial / Lot Plt Bn 3 H Std Ti L Dst Volar Rad - Sna - [id number] Implanted:Qty: 1 on 03/18/2019 by Kirill Joshi DO at [facility] Plate Left: Wrist Arthrex 02/12/2025 AR-8916VSL- 03 / NA / NA Scr Bn 20mm 2.4mm Va St Sld - Sna - [id number] Implanted:Qty: 1 on 03/18/2019 by Kirill Joshi DO at [facility] Screw Left: Wrist Arthrex 02/12/2025 AR-8724V-20 / NA / NA Scr Bn 20mm 2.4mm Va Lck Smth - Sna - [id number] Implanted:Qty: 1 on 03/18/2019 by Kirill Joshi DO at [facility] Screw Left: Wrist Arthrex 02/12/2025 AR-8916VNC- 20 / NA / NA Scr Bn 24mm 2.4mm Va St Sld - Sna - [id number] Implanted:Qty: 2 on 03/18/2019 by Kirill Joshi DO at [facility] Screw Left: Wrist Arthrex 02/12/2025 AR-8724V-24 / NA / NA Scr Bn 26mm 2.4mm Va [address] Sld - Sna - [id number] Implanted:Qty: 1 on 03/18/2019 by Kirill Joshi DO at [facility] Screw Left: Wrist Arthrex 02/12/2025 AR-8724V-26 / NA / NA Scr Bn 28mm 2.4mm Va [address] Sld - Sna - [id number] Implanted:Qty: 1 on 03/18/2019 by Kirill Joshi DO at [facility] Screw Left: Wrist Arthrex 02/12/2025 AR-8724V-28 / NA / NA Scr Bn L14mm Od3.5mm Ti Shailesh Ank Ft Self Drl Sergo - Sna - [id number] Implanted:Qty: 2 on 03/18/2019 by Kirill Joshi DO at [facility] Screw Left: Wrist Arthrex 02/12/2025 AR-8935L-14 / NA / NA Scr Bn L14mm Od3.5mm Ti- Shailesh Self Drl Nonlocking Ft - Sna - [id number] Implanted:Qty: 1 on 03/18/2019 by Kirill Joshi DO at [facility] Screw Left: Wrist Arthrex 02/12/2025 AR-8935-14 / NA / NA Insurance MEDICARE [facility] Care Teams Telephone Assembler Relationship Specialty [place] [address] [place] [id number] PCP - General Family Medicine 03/18/19
--- OUTSIDE RECORDS SUMMARY | 2024-09-10 12:35 | XMS_ITS | Encounter Summary ---
Author Organization [facility] Address [address] [place] [address] Care Team Providers Care Landscape Gardener Name Role Phone Patsy Escalante MD Primary Care Provider [phone] Encounter Details Date Type Department Care Team (Late Contact Info) Description 09/02/[address] [facility] Heart at [facility] [address] [place] [address] Deborah De Luna MA Abnormal stress test (Primary Dx); Angina pectoris, unstable (CMS/HCC) Social History Tobacco Use Types Packs/Day Years Used Date Smoking Tobacco: Never Smokeless Tobacco: Never Alcohol Use Standard Drinks/Week Comments Yes 0 [...] on file Sexual Orientation Not on file documented as of this encounter Plan of Treatment Upcoming Encounters Date Type Department Care Team (Late st Contact Info) Description 09/14/2024 11:30 AM EDT Hospital Encounter [facility] [address] [place] [phone] Alexis Lopez MD [address] [facility] [place] [address] Abnormal stress test; Angina pectoris, unstable (CMS/HCC) 09/14/2024 11:30 AM EDT - 09/14/2024 12:30 PM EDT Surgery [facility] [address] [place] [phone] Alexis Lopez MD [address] [place] [address] Coronary angiography Scheduled Orders Name Type Priority Associated Diagnoses Orde r Schedule CBC and differential Lab Routine Abnormal stress test Angina pectoris, unstable (CMS/HCC) Expected: 09/02/2024 (Approximate), Expires: 09/02/2025 Basic metabolic panel Lab Routine Abnormal stress test Angina pectoris, unstable (CMS/HCC) Expected: 09/02/2024 (Approximate), Expires: 09/02/2025 documented as of this encounter Visit Diagnoses Diagnosis Abnormal stress test- Primary Other nonspecific abnormal cardiovascular system function study Angina pectoris, unstable (CMS/HCC) Intermediate coronary syndrome Abnormal stress test Other nonspecific abnormal cardiovascular system function study Angina pectoris, unstable (CMS/HCC) Intermediate coronary syndrome Abnormal stress test Other nonspecific abnormal cardiovascular system function study Angina pectoris, unstable (CMS/HCC) Intermediate coronary syndrome documented in this encounter Care Teams Landscape Gardener Relationship Specialty Start Date End Date Patsy Escalante MD [address] PCP - General 08/01/22 documented as of this encounter
--- OUTSIDE RECORDS SUMMARY | 2024-09-10 12:35 | XMS_ITS | Clinical Summary ---
Author Organization [facility] Address [address] [place] [address] Care Team Providers Care Spray Machine Tender Name Role Phone Unavailable Primary Care Provider [...]
--- OUTSIDE RECORDS SUMMARY | 2024-09-10 12:35 | XMS_ITS | Encounter Summary ---
Author Organization [facility] Address [address] [place] [address] Care Team Providers Care Solid Waste Collector Name Role Phone Patsy Escalante MD Primary Care Provider [phone] Encounter Details Date Type Department Care Team (Late Contact Info) Description 08/27/2024 Orders Only [facility] Heart at [facility] [address] [place] [address] Provider, MD Amilcar [facility] [place] [address] Social History Tobacco Use Types Packs/Day Years [...] Description 09/14/2024 11:30 AM EDT Hospital Encounter [facility] Heart and [facility] Center [facility] [address] [place] [phone] Alexis Lopez MD [address] [facility] [address] [facility] [place] [address] Abnormal stress test; Angina pectoris, unstable (CMS/HCC) 09/14/2024 11:30 AM EDT - 09/14/2024 12:30 PM EDT Surgery [facility] [address] [place] [address] Alexis Lopez MD [address] [place] [address] Coronary angiography documented as of this encounter Procedures Procedure Name Priority Date/Time Associated Diagnosis Comments TREADMILL STRESS MYOCARDIAL PERFUSION IMAGING Routine 08/24/2024 9:53 AM EDT documented in this encounter Results * Treadmill Stress Myocardial Perfusion Imaging (08/24/2024 9:53 AM EDT) Anatomical Region Laterality Modality Other us Historical Provider CV STRESS PROCEDURES Sudha l Result documented in this encounter Visit Diagnoses Not on filedocumented in this encounter Care Teams Solid Waste Collector Relationship Specialty Start Date End Date Patsy Escalante MD [address] PCP - General 08/01/22 documented as of this encounter
--- OUTSIDE RECORDS SUMMARY | 2024-09-10 12:35 | XMS_ITS | Clinical Summary ---
Author Organization [facility] Address [address] [place] [address] Care Team Providers Care Swimming Pool Attendant Name Role Phone Patsy Escalante MD Primary Care Provider [phone] Social History Tobacco Use Types Packs/Day Years [...] towards. Insurance MEDICARE A AND B [facility] Care Teams Swimming Pool Attendant Relationship Specialty Start Date End Date Patsy Escalante MD PCP - General Family Medicine 03/08/16
--- NOTE | 2024-09-10 13:00 | CA_ITS ---
Patient Name: BRYANT FOREMAN MR#: [id number] : 1950 Exam Date: 09/10/2024 Ordering Doctor: DR LUCY WOODALL M.D. ECHOCARDIOGRAM REPORT PROCEDURE: CA ECHO DOPPLER COMPLETE INDICATIONS: Chest pain, coronary artery disease, hypertension COMPARISON: None. DESCRIPTION: COMPLETE ECHOCARDIOGRAM Real-time transthoracic echocardiography with 2D, M-mode, spectral and color flow Doppler performed. QUALITY: Technical quality was good. LEFT VENTRICLE: Normal chamber size. Mild concentric left ventricular hypertrophy. Normal left ventricle systolic function without wall motion abnormalities calculated left ventricular ejection fraction is 57%. LV EF: Normal left ventricular ejection fraction, (>55%). DIASTOLIC: Normal diastolic function. ATRIAL SEPTUM: Visually appears intact. LEFT ATRIUM: Mild dilatation. RIGHT ATRIUM: Normal chamber size. RIGHT VENTRICLE: Normal chamber size. Normal right ventricular systolic function. TRICUSPID VALVE: Normal mobility and thickness. No stenosis with trivial regurgitation. No evidence of pulmonary hypertension.RVSP 30 mmHg MITRAL VALVE: Normal mobility and thickness. No evidence of mitral valve stenosis. Mild mitral annular calcification. Mild mitral regurgitation. AORTIC VALVE: Normal trileaflet appearance. Thickened aortic valve. Normal leaflet mobility. No evidence of aortic valve stenosis. Mild aortic regurgitation. AORTIC ROOT: Normal diameter and appearance. PULMONIC VALVE: Normal thickness and mobility. No stenosis. No regurgitation. PERICARDIUM: No evidence of pericardial effusion. IVC: Collapes with inspirations. IVC is normal in size. PLEURA: CONCLUSION: Mild concentric left ventricle hypertrophy Normal left ventricle systolic function without wall motion abnormalities, ejection fraction 57% Normal left ventricular diastolic function Normal right ventricle size and systolic function Normal right sided pressures, RVSP 30 mmHg Mild mitral regurgitation Mild aortic insufficiency Trace tricuspid regurgitation Adult Echocardiography Procedure Report Left Ventricle LVEDD (3.7 - 5.6 cm): 4.75 cm LVESD (2.2 - 4.0 cm): 3.29 cm LVIVS thickness (0.6 - 1.2 cm): 1.32 cm LVPW thickness (0.5 - 1.0 cm): 1.14 cm e': 0.10 m/s E - e': 6.48 LVOT Max Gradient: 2.84 mm[Hg] LVOT Area (cm2): 0.84 m/s Peak Velocity (LVOT): 0.84 m/s Mean Velocity (LVOT): 0.58 m/s LVOT Diameter 2.49 cm Left Ventricular Ejection Fraction: 56.65 % Left Atrium LA Volume Index (2D A2C): 39.14 ml/m2 Left Atrium Systolic Dimension: 3.98 cm Mitral Valve MV E to A Ratio: 0.89 MV Max Gradient: MV Mean Gradient: Mitral Valve A-Wave Peak Velocity: 0.71 m/s Mitral Valve E-Wave Peak Velocity: 0.63 m/s Cardiovascular Orifice Area: Right Ventricle RV Internal Diastolic Dimension: Aorta AO Root Diam: 3.35 cm Ascending Ao Diam: Aortic Valve AoV Area (Peak Griffin): 2.95 cm2, 2.95 cm2 AoV Area (VTI): 2.98 cm2, 2.[address] Landry: 1.69 m/s2 Pressure Half-Time: 764.71 ms Peak Velocity(Antegrade Flow): 1.39 m/s Peak Gradient(Antegrade Flow): 7.68 mm[Hg] Mean Velocity(Antegrade Flow): 0.91 m/s Mean Gradient(Antegrade Flow): 3.83 mm[Hg] Velocity Time Integral: 31.42 cm Tricuspid Valve Peak Velocity (Regurgitant Flow): 2.61 m/s Peak Velocity: Pulmonic Valve Mean Gradient: Mean Velocity: Peak Velocity: Peak Gradient: 3.53 mm[Hg], 3.48 mm[Hg] Right Atrium Right Atrium Systolic Pressure: 47.08 ml, 47.08 ml Dictated by: Best Causey MD on 09/11/2024 at 18:29 Approved by: Best Causey MD on 09/11/2024 at 18:35
[2024-09-10 13:06] LABS: Hematocrit 40.2 % (42.0-54.0); Hemoglobin 14.2 g/dL (14.0-18.0); Immature Granulocytes Abs Auto 0.01 10^3/uL (0.00-0.03); Immature Granulocytes Pct Auto 0.1 % (0.0-0.5); Lymphocytes Absolute Auto 2.3 10^3/uL (1.2-3.8); Mean Corpuscular HGB Conc 35.3 g/dL (29.9-35.2); Mean Corpuscular Hemoglobin 32.6 pg (25.9-34.0); Mean Corpuscular Volume 92.2 fL (80.0-94.0); Platelet Count 245 10^3/uL (150-450); Red Blood Count 4.36 10^6/uL (4.70-6.10); White Blood Count 7.5 10^3/uL (4.0-11.0)
[2024-09-10 13:11] LABS: Anion Gap 10.9; Blood Urea Nitrogen 23.0 mg/dL (7.0-18.0); Calcium 9.1 mg/dL (8.5-10.1); Carbon Dioxide 30.3 mmol/L (21.0-32.0); Chloride 107 mmol/L (98-107); Estimated GFR (African America >60 (>=60 mL/min/1.73m^2); Estimated GFR (Non-African Ame 56 (>=60 mL/min/1.73m^2); Glucose 120 mg/dL (74-106); Potassium 4.2 mmol/L (3.5-5.1); Sodium 144 mmol/L (136-145)
== END 2024-09-10 12:34 | disposition home or self-care (01) ==
LOC: CARD 12:33
PROVIDERS: PCP Family Medicine; Visit Provider Internal Medicine Interventional Cardiology
DX: R07.89 Other chest pain (principal); I25.10 Atherosclerotic heart disease of native coronary artery without angina pectoris; R94.39 Abnormal result of other cardiovascular function study
CPT/HCPCS: 36415; 80048; 85025; 93306

== ENCOUNTER 2024-11-28 09:18 | Outpatient (OUT) | payer MEDICARE, SELFPAY ==
--- OUTSIDE RECORDS SUMMARY | 2017-02-06 09:30 | XMS_ITS | Continuity of Care Document ---
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 Role Phone Murali Wilson MD Unavailable Unavailable Allergies, Adverse Reactions, Alerts Substance Reaction Status Criticality No Known Allergies Active No Inform ation Medications Medication Instructions Dosage Effective Dates (start - stop) Status Comments carvedilol 25 mg tablet take 1 tablet by oral route 2 times every day with food - Active clopidogrel 75 mg tablet take 1 tablet by oral route every day 75 MG - Active losartan 100 mg-hydrochlorothiazi de 12.5 mg tablet take 1 tablet by oral route every day 1.00 tablet - Active aspirin 325 mg tablet take 1 tablet by oral route every day 325 MG - Active amlodipine 10 mg tablet take 1 tablet by oral route every day 10 MG - Active Fish Oil 360 mg-1,200 mg capsule 2 daily - Active atorvastatin 80 mg tablet take 1 tablet by oral route every day 80 MG - Active Procedures Procedure Date Ext Ophthalmoscopy, Subseq Postop Follow-up Visit Postop Follow-up Visit Postop Follow-up Visit Laser (tear) New Patient, High EYE SERVICE OR PROCEDURE Advance Directives Directive Yes / No Effective Date File Name No Information Encounters Encounter Description Practice Location Reason(s) For Visit Diagnoses Date Provider Providers Copied on Encounter [facility], [address] [facility], [place], [address], [place] tel:[phone] [facility] Angy treated horseshoe tear without detachment (chief complaint)im provement in floaters (chief complaint)re ports no visual changes (chief complaint) Horseshoe tear of retina without detachment, left eyeVitreous hemorrhage, left eye Dec-0 6-201 7 Steve Carrion. [address], [address] [facility], [place], [place], [id number] , [place]. tel:[phone] Referring Provider: Murali Vann, [address] [facility], [place], [address] . tel:[phone] [facility], [address] [place], [address], [place] tel:[phone] [facility] [place] treated retinal tear (chief complaint)im proved vision (chief complaint) Horseshoe tear of retina without detachment, left eyeVitreous hemorrhage, left eye Oct-2 7 Steve Carrion. [address], [address] [facility], [place], [place], [id number] , [place]. [phone] Referring Provider: Murali Vann, [address] [facility], [place], [address] . tel:[phone] [facility], [address] [place], [address], [place] tel:[phone] [facility] [place] treated retinal tear (chief complaint)Ad ditional Information (chief complaint) Horseshoe tear of retina without detachment, left eye Oct-0 7 Steve Carrion. [address], [address] [facility], [place], [place], [id number] , [place]. tel:[phone] Referring Provider: Murali Vann, [address] [facility], [place], [address] . tel:[phone] New Patient, High [facility], [address] [place], [address], [place] tel:[phone] LOUISA Hima Coats referred by Dr. Robbins for a RD (chief complaint)bl ack floaters in vision (chief complaint)re ports no vision changes (chief complaint) Vitreous hemorrhage, left eyeRetinal hemorrhage, left eyeHorseshoe tear of retina without detachment, left eyeAge-related nuclear cataract, bilateralVitreous degeneration, left eye Oct-0 2-201 7 Steve Carrion. [address], [address], [place], [place], [id number] , [place]. tel:[phone] Referring Provider: Michael Robbins, [address] [place], [address]. tel:[phone] Family History Family Member Type Diagnosis Age At Onset Problem (finding) Family history of Breas t Problem (finding) Family history of hyper tension Problem (finding) Family history of Diabe shahana mellitus Problem (finding) Family history of Heart disease Immunizations Vaccine Date Status Comments Influenza, seasonal, injectable, 3 yrs or older (36 mos+) FluLaval administered Note: Invalid docume nted admin date was NULL/NULL/2015. ; Source: Other Provider Payers Payer name Insurance type Covered libertarian ID Authoriza tion(s) No Information Social History Type Description Quantity Date Captured Comments Alcohol Use Details No Caffeine Use Details No Tobacco Use Status Current non-smoker 17 Smoking Status Never smoker Non-Smoking Tobacco Use Details : No Details Available : No Details Available Sex Male Vital Signs Date / Time: Height Weight BMI Pulse Rate Blood Pressure Temperature Respiratory Rate Body Surface Area Head Circumference Head Circ. Percentile Wt./Abdirahman. Percentile BMI percentile Pulse Ox Inhaled Ox 1:41 PM 134/85 mm[Hg] Chief Complaint And Reason For Visit From encounter dated '02/06/2017 13:30'. treated horseshoe tear without detachment (chief complaint). Description: The 67 year old male presents for a treated horseshoe tear without detachment in the left eye. S/P Laser on 12/03/16. improvement in floaters (chief complaint). Description: The patient reports an improvement in floaters in the left eye. It started about 6 weeks ago . The onset was gradual. Vision is not affected. The symptom is constant. The condition is improving. In addition, the condition is associated with daily activity and chores. The patient denies flashes. reports no visual changes (chief complaint). Description: The patient reports no visual changes in the right eye since his alst visit 6 weeks ago. It affects both near and far vision. The symptom is constant. The condition is stable. In addition, the condition is associated with daily activity and chores. The patient denies flashes and floaters. Reason For Referral Reason For Referral No Information History Of Present Illness Encounter Date Complaint History Of Prese nt Illness reports no visual changes The emma altamirano reports no visual changes in the right eye since his alst visit 6 weeks ago. It affects both near and far vision. The symptom is constant. The condition is stable. In addition, the condition is associated with daily activity and chores. The patient denies flashes and floaters. improvement in floaters The glenn ent reports an improvement in floaters in the left eye. It started about 6 weeks ago . The onset was gradual. Vision is not affected. The symptom is constant. The condition is improving. In addition, the condition is associated with daily activity and chores. The patient denies flashes. treated horseshoe te ar without detachment The 67 year old male presents for a treated horseshoe tear without detachment in the left eye. S/P Laser on 12/03/16. improved vision The patient repo rts of improved vision in the left eye. It started about 2 weeks ago . The onset was gradual. It affects both near and far vision. The symptom is constant. It occurs all the time. The condition is improving. The condition is described as seeing haddad swirls. In addition, the condition is associated with daily activity and chores. The patient denies flashes. treated retinal tear The 66 year old male presents for evaluation of treated retinal tear in the left eye. Additional Information Patient n otes a haddad cloud in his vision since saturday, but it has gotten mildly better. treated retinal tear The 66 year old male presents for evaluation of treated retinal tear in the left eye. S/P PRP 12/03/2016 reports no vision changes The emma altamirano reports no vision changes in the right eye since his last eye exam 3 years ago. It affects both near and far vision. The symptom is constant. The condition is stable. In addition, the condition is associated with daily activity and chores. The patient denies flashes and floaters. black floaters in vision The pat guillermo reports black floaters in vision in the left eye. It started about 4 days ago . The onset was sudden. It affects both near and far vision. The symptom is constant. The condition is severe. In addition, the condition is associated with daily activity and chores. The patient denies flashes. Patient reports the vision is like looking through gauze. referred by Dr. Robbins for a RD T he 66 year old male referred by Dr. Robbins for a RD in the left eye. Functional Status Date Functional Assessmen t No Information Instructions Date Instruction Additional Infor mation Return in PRN Related to Horse shoe tear of retina without detachment, left eye Follow up - Return in PRN Relate d to Horseshoe tear of retina without detachment, left eye Impression/Plan - LE FT: Patient doing well s/p laser treatment of retinal tear on 12/03/16. Subsequent scleral depressed examination today revealed no new retinal breaks, holes, tears, or RD. The patient was advised to call immediately with new flashes or floaters. The patient will return to their referring doctor for ongoing eye care and to [facility] on an as needed basis. Related to Horseshoe tear of retina without detachment, left eye Impression/Plan Related to Vitre ous hemorrhage, left eye Return in 4-[address] Wilson for follow up exam. Dilate OS only. Related to Horseshoe tear of retina without detachment, left eye Follow up - Return i n 4-[address] Wilson for follow up exam. Dilate OS only. Related to Horseshoe tear of retina without detachment, left eye Impression/Plan - LE FT: Patient doing well s/p laser treatment of retinal tear on 12/03/16. No new retinal breaks, tears or holes were seen on examination today. Vision has improved as vitreous hemorrhage clears. Advised patient to call with onset of any new signs or symptoms of retinal tears or detachment. Related to Horseshoe tear of retina without detachment, left eye Impression/Plan - Vi ching is improving as hemorrhage is clearing. Will continue to monitor. Related to Vitreous hemorrhage, left eye Oct- Return in [address] Wilson for post op exam. Dilate OS only. Related to Horseshoe tear of retina without detachment, left eye Oct Follow up - Return i n [address] Wilson for post op exam. Dilate OS only. Related to Horseshoe tear of retina without detachment, left eye Oct- Impression/Plan - LE FT: Patient doing well s/p laser treatment of retinal tear. No new retinal breaks, tears or holes were seen on examination today. Vision has improved as vitreous hemorrhage clears. Advised patient to call with onset of any new signs or symptoms of retinal tears or detachment. Related to Horseshoe tear of retina without detachment, left eye Oct Return in [address] Wilson for post op exam. Dilate OS only. Related to Horseshoe tear of retina without detachment, left eye Impression/Plan - Re gular follow up appointments with the patient's comprehensive eye doctor were recommended to monitor the patients cataract for progression. Referral for surgical intervention is not indicated at this time. Related to Age-related nuclear cataract, bilateral Dec- Impression/Plan - Wi th associated tear/retinal hemorrhage. Vision limiting factor. I advised the patient to maintain an elevated head of bed positioning and limit activities in the hopes of achieving spontaneous resolution. I instructed to patient to call should they experience any change or worsening in their symptoms. Related to Vitreous hemorrhage, left eye Oct- Follow up - Return i n [address] Wilson for post op exam. Dilate OS only. 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 I recommended laser to seal the tear(s) and reduce the risk of retinal detachment. At the patient's request, we proceeded emergently with the laser procedure and it was completed without complication. I cautioned the patient as to the ongoing risk of a late retinal tear or detachment. Discussed signs and symptoms of retinal detachment. Educational materials: Torn Retina Related to Horseshoe tear of retina without detachment, left eye Oct- Impression/Plan - Wi th associated retinal tear - see plan #1 Related to Vitreous degeneration, left eye Oct- Impression/Plan - Se condary to PVD and associated retinal tear. Related to Retinal hemorrhage, left eye Assessments Type Assessment Date assessment Horseshoe tear of retina without detachment, left eye impression Horseshoe tear of re hayden without detachment, left eye: H33.312. OS. Condition: resolved s/p laser assessment Vitreous hemorrhage, left eye De impression Vitreous hemorrhage, left eye: H 43.12. OS. Condition: resolved Patient Care Teams Name Effective Dates (start - stop) Status Members No Information
--- OUTSIDE RECORDS SUMMARY | 2024-10-14 08:42 | XMS_ITS ---
Author Name Auto Generated Organization OHIP Care Team Providers Care Bag Washer Name Role Phone ALEXIS LOPEZ Admitting Unavailable JOSE C, ALEXIS Attending Unavailable ELIEL SHAH Attending Unavailable ALEXIS LOPEZ Attending Unavailable ALEXIS LOPEZ Referring Unavailable ALEXIS LOPEZ Referring Unavailable PROBLEMS DATE TYPE CONDITION / CODE ATTENDING STATUS [facility] 09/15/2024 Admitting Diagnosis Unstable angina / I20.0(ICD-10) JOSE C Active [facility] 09/14/2024 Admitting Diagnosis Atherosclerotic heart disease of grand traverse coronary artery without angina pectoris / I25.10(ICD-10) JOSE C Active [facility] 09/14/2024 Admitting Diagnosis Coronary atherosclerosis due to calcified coronary lesion / I25.84(ICD-10) JOSE C Active [facility] 09/09/2024 Admitting Diagnosis Abnormal result of other cardiovascular function study / R94.39(ICD-10) JOSE C Active [facility] 07/07/2024 Admitting Diagnosis Other chest pain / R07.89(ICD-10) [facility] PROCEDURES No Procedure Records Found RESULTS OFFICE VISIT Observed: 10/14/2024 9:00 AM Status: COMPLETED Source: [facility] [id number] Bryant Perez M Date Provider Department Center 10/14/20[facility] Problem Relation Age of Onset Breast cancer Mother Coronary artery disease Mother Diabetes Mother Diabetes Father Coronary artery disease Other Diabetes Other Family Status - Relation Status Age at Mother Father Other Level of Service:73[address] [place] OFFICE/OUTPATIENT ESTABLISHED LOW [facility] 20 MIN Reason for Visit and Comments: Coronary Artery Disease [187] PROGRESS Observed: 10/14/2024 9:00 AM Status: COMPLETED Source: [facility] Cardiovascular Medicine [facility] SUBJECTIVE Chief Complaint Patient presents with Coronary Artery Disease Bryant Perez is a 74 y.o. male here for follow-up. PMHx: CAD, silent [place], HTN, HLD HPI 10/14/2024 Since last seen he underwent a stress test due to c/o chest heaviness with exertion after a large meal. His stress test was abnormal so he underwent a cardiac cath. He was found to have severe stenosis in the distal RCA and a PCI with stent placement was done. Since his procedure he has been feeling well. He is back to cardiac rehab without any complaints. BP has been well controlled, 120-130s/70s. Denies c/o CP, dyspnea, orthopnea, PND, LE edema, dizziness/LH, palpitations, syncope. Problem List[1] Medical History[2] Family History[3] Social History[4] Allergies[5] OBJECTIVE Visit Vitals BP 134/77 (BP Location: Right arm, Patient Position: Sitting) Pulse 64 Ht 1.778 m (5' 10 ) Wt 92.1 kg (203 lb) SpO2 99% BMI 29.13 kg/m??? Smoking Status Never BSA 2.13 m??? Medications: Current Medications[6] Physical Exam Constitutional: Appearance: Normal appearance. He is normal weight. HENT: Head: Normocephalic and atraumatic. Right Ear: External ear normal. Left Ear: External ear normal. Eyes: Extraocular Movements: Extraocular movements intact. Pupils: Pupils are equal, round, and reactive to light. Neck: Vascular: No carotid bruit. Cardiovascular: Rate and Rhythm: Normal rate and regular rhythm. Pulses: Normal pulses. Heart sounds: Normal heart sounds. Pulmonary: Effort: Pulmonary effort is normal. Breath sounds: Normal breath sounds. Abdominal: General: Bowel sounds are normal. Palpations: Abdomen is soft. Musculoskeletal: General: Normal range of motion. Cervical back: Neck supple. Right lower leg: No edema. Left lower leg: No edema. Skin: General: Skin is warm and dry. Comments: Right wrist cath site soft, nontender, no hematoma, no bruit, brisk cap refill Neurological: General: No focal deficit present. Mental Status: He is alert and oriented to person, place, and time. Psychiatric: Mood and Affect: Mood normal. Behavior: Behavior normal. Thought Content: Thought content normal. Judgment: Judgment normal. Labs: No results found for: EXTCMP , BMPR1A , CBCDIF , BNP , LASAP , RED Admission on 09/14/2024, Discharged on 09/15/2024 Component Date Value Ventricular Rate 09/14/2024 72 Atrial Rate 09/14/2024 72 [place] Interval 09/14/2024 146 QRS DURATION 09/14/2024 82 QT Interval 09/14/2024 394 QTC CALCULATION(BAZETT) 09/14/2024 431 P [place] 09/14/2024 48 R-[place] 09/14/2024 26 T Wave [place] 09/14/2024 39 Ventricular Rate 09/14/2024 68 Atrial Rate 09/14/2024 68 [place] Interval 09/14/2024 160 QRS DURATION 09/14/2024 86 QT Interval 09/14/2024 416 QTC CALCULATION(BAZETT) 09/14/2024 442 P [place] 09/14/2024 45 R-[place] 09/14/2024 15 T Wave [place] 09/14/2024 20 Activated Clotting Time 09/14/2024 352 (H) Activated Clotting Time 09/14/2024 294 (H) Sodium 09/15/2024 138 Potassium 09/15/2024 3.5 Chloride 09/15/2024 105 CO2 09/15/2024 26 BUN 09/15/2024 11 Creatinine 09/15/2024 0.91 Glucose 09/15/2024 114 (H) Calcium 09/15/2024 8.7 Anion Gap 09/15/2024 11 eGFR 09/15/2024 89.0 BUN/Creatinine Ratio 09/15/2024 12.1 Auto WBC 09/15/2024 7.25 RBC 09/15/2024 4.55 Hemoglobin 09/15/2024 14.6 Hematocrit 09/15/2024 41.6 MCV 09/15/2024 91.4 MCH 09/15/2024 32.1 MCHC 09/15/2024 35.1 (H) RDW 09/15/2024 12.7 Platelets 09/15/2024 239 11/29/2023 Hgb 14.3, plt 270 Cr 1.23, BUN 20, 3.7, Na 141, eGFR 58, AST 25, ALT 36 Chol 142, LDL 70, HDL 62, 02/10/23 CBC stable Renal function normal 11/30/22 CBC stable Renal function normal LFT normal Chol 126, Trig 62, LDL 57.6, HDL 56 Last lab values have been reviewed Testing/Procedures: Encounter Date: 09/14/24 ECG 12 lead Result Value Ventricular Rate 68 Atrial Rate 68 [place] Interval 160 QRS DURATION 86 QT Interval 416 QTC CALCULATION(BAZETT) 442 P [place] 45 R-[place] 15 T Wave [place] 20 Impression Normal sinus rhythm Normal ECG When compared with ECG of 14-SEP-2024 09:43, (unconfirmed) Premature ventricular complexes are no longer Present Confirmed by Keya HERNANDEZ, ANALY Lara ([id number]) on 09/15/2024 10:30:11 AM Cardiovascular Laboratory Report 09/14/2024 FINAL IMPRESSIONS: Severe calcific stenosis of the distal right coronary artery successfully treated by balloon angioplasty, AngioSculpt angioplasty, and Shockwave intravascular lithotripsy followed by placement of a Synergy drug-eluting stent. Mild to moderate in-stent restenosis of the mid right coronary artery Mild in-stent restenosis of the large second diagonal branch of the left anterior descending coronary Mild to moderate diffuse disease of the left anterior descending coronary artery Patent stent in the proximal left circumflex coronary artery followed by a chronic total occlusion in the mid to distal portion RECOMMENDATIONS: Aggressive cardiovascular risk factor modification Optimal medical therapy for coronary artery disease should include long-term dual antiplatelet therapy, moderate intensity statin therapy, a beta-gary and a RAAS inhibitor Follow-up with Dr. Lopez in the next 1 to 2 months in the [facility] cardiology office ECHO 09/10/2024 Mild concentric LVH Normal LV systolic function without wall motion abnormalities with EF 57% Normal LV diastolic function Normal RV size and systolic function Mild MR Mild AI Trace TR Stress test 2021: Nonischemic 06/22/20 echo 12/04/2010 Heart cath/PCI 10/2010 heart cath/PCI ASSESSMENT/PLAN: Diagnoses and all orders for this visit: Coronary artery disease involving grand traverse coronary artery of grand traverse heart without angina pectoris - nitroglycerin (Nitrostat) 0.4 mg SL tablet; Place 1 tablet (0.4 mg) under the tongue every 5 (five) minutes if needed for chest pain. Abnormal stress test S/P right coronary artery (RCA) stent placement Benign essential HTN Mixed hyperlipidemia #CAD, hx of PCI with stent placement #s/p recent PCI/stent to RCA 09/14/2024 -He is doing well since his recent heart cath procedure. Denies c/o CP, dyspnea. He is doing well at cardiac rehab. -Discussed importance of DAPT compliance. -Reviewed his recent ECHO with him, mild MR/AI, trace TR. -Continue statin, BB. -Continue routine exercise and heart healthy diet. -Refill provided for SL nitroglycerin. #HTN -Controlled -Continue coreg, losartan, amlodipine. #HLD -Controlled per 11/2023 lipid panel -He will be getting routine labs through PCP in Nov/Dec and have results forwarded to us. Follow up in about 4 months (around 02/13/2025). Eliel Shah CNP [facility] Cardiovascular Medicine [1] Patient Active Problem List Diagnosis CAD in grand traverse artery Mixed hyperlipidemia Benign essential HTN Silent myocardial infarction (CMS/HCC) Edema of lower extremity Abnormal stress test Coronary artery disease due to calcified coronary lesion [2] Past Medical History: Diagnosis Date Coronary artery disease Hyperlipidemia Hypertension Silent myocardial ischemia [3] Family History Problem Relation Name Age of Onset Breast cancer Mother Coronary artery disease Mother Diabetes Mother Diabetes Father Coronary artery disease Other Diabetes Other [4] Social History Tobacco Use Smoking status: Never Smokeless tobacco: Never Substance Use Topics Alcohol use: Yes Comment: occasional Drug use: Never [5] No Known Allergies [6] Current Outpatient Medications: amLODIPine (Norvasc) 10 mg tablet, amlodipine 10 mg tablet, Disp: , Rfl: aspirin 81 mg EC tablet, Take 81 mg by mouth in the morning., Disp: , Rfl: atorvastatin (Lipitor) 80 mg tablet, atorvastatin 80 mg tablet, Disp: , Rfl: carvedilol (Coreg) 25 mg tablet, Take 25 mg by mouth with breakfast and with evening meal., Disp: , Rfl: clopidogrel (Plavix) 75 mg tablet, Take 75 mg by mouth in the morning., Disp: , Rfl: losartan (Cozaar) 100 mg tablet, losartan 100 mg tablet, Disp: , Rfl: nitroglycerin (Nitrostat) 0.4 mg SL tablet, Place 1 tablet (0.4 mg) under the tongue every 5 (five) minutes if needed for chest pain., Disp: 30 tablet, Rfl: 3 PROGRESS Observed: 10/14/2024 9:00 AM Status: COMPLETED Source: [facility] Patient is here today for a follow up s/p cath. Patient states he is feeling fine. Patient is doing rehab and states its going well. Patient denies any complaints at this time. Review of Systems Constitutional: Negative. 30 Observed: 09/15/2024 12:23 PM Status: COMPLETED Source: [facility] The patient is Moderately St able - Low risk of patient condition declining or worsening The patient's goals for the shift include comfort The clinical goals for the shift include stable vitals, safety Patient is adequate for discharge. Problem: Pain - Adult Goal: Verbalizes/displays adequate comfort level or baseline comfort level Outcome: Adequate for DischargeProblem: Safety - Adult Goal: Free from fall injury Outcome: Adequate for DischargeProblem: Discharge Planning Goal: Discharge to home or other facility with appropriate resources Outcome: Adequate for DischargeProblem: Chronic Conditions and Co-morbidities Goal: Patient's chronic conditions and co-morbidity symptoms are monitored and maintained or improved Outcome: Adequate for Discharge DS Observed: 09/15/2024 11:42 AM Status: COMPLETED Source: [facility] Admission Admitted 09/14/2024 for Abnormal stress test Discharge Diagnosis Coronary artery disease due to calcified coronary lesion S/p PCI to RCA Discharge Disposition Home or Self Care () Discharge Medications Your medication list CONTINUE taking these medications Instructions Last Dose Given Next Dose Due amLODIPine 10 mg tablet Commonly known as: Norvasc aspirin 81 mg EC tablet atorvastatin 80 mg tablet Commonly known as: Lipitor carvedilol 25 mg tablet Commonly known as: Coreg clopidogrel 75 mg tablet Commonly known as: Plavix losartan 100 mg tablet Commonly known as: Cozaar nitroglycerin 0.4 mg SL tablet Commonly known as: Nitrostat Activity No driving for 24 hours after procedure Diet Continue on the same type of diet and foods as you were eating before your admission. Drink plenty of water. Allergies Patient has no known allergies. Hospital Course Patient is a 74 y/o M with known hx of CAD s/p previous PCI, NJ, HTN, HLD [facility] for a coronary angiogram due to an abnormal stress test. He was noted to have severe stenosis in the distal RCA which was treated with balloon angioplasty, AngioSculpt angioplasty, and Shockwave intravascular lithotripsy followed by placement of a Synergy drug-eluting stent. He tolerated the procedure well. No acute events overnight. Vitals and labs are stable. Reviewed post cath instructions with patient including stressing importance of DAPT compliance. He will be continuing to participate in cardiac rehab. He will be discharged to home today in stable condition. Cardiovascular Laboratory Report FINAL IMPRESSIONS: Severe calcific stenosis of the distal right coronary artery successfully treated by balloon angioplasty, AngioSculpt angioplasty, and Shockwave intravascular lithotripsy followed by placement of a Synergy drug-eluting stent. Mild to moderate in-stent restenosis of the mid right coronary artery Mild in-stent restenosis of the large second diagonal branch of the left anterior descending coronary Mild to moderate diffuse disease of the left anterior descending coronary artery Patent stent in the proximal left circumflex coronary artery followed by a chronic total occlusion in the mid to distal portion RECOMMENDATIONS: Aggressive cardiovascular risk factor modification Optimal medical therapy for coronary artery disease should include long-term dual antiplatelet therapy, moderate intensity statin therapy, a beta-gary and a RAAS inhibitor Follow-up with Dr. Lopez in the next 1 to 2 months in the [facility] cardiology office Pertinent Physical Exam At Time of Discharge Physical Exam Constitutional: Appearance: Normal appearance. He is normal weight. HENT: Head: Normocephalic and atraumatic. Right Ear: External ear normal. Left Ear: External ear normal. Eyes: Extraocular Movements: Extraocular movements intact. Pupils: Pupils are equal, round, and reactive to light. Neck: Vascular: No carotid bruit. Cardiovascular: Rate and Rhythm: Normal rate and regular rhythm. Pulses: Normal pulses. Heart sounds: Normal heart sounds. Pulmonary: Effort: Pulmonary effort is normal. Breath sounds: Normal breath sounds. Abdominal: General: Bowel sounds are normal. Palpations: Abdomen is soft. Musculoskeletal: General: Normal range of motion. Cervical back: Neck supple. Right lower leg: No edema. Left lower leg: No edema. Skin: General: Skin is warm and dry. Capillary Refill: Capillary refill takes less than 2 seconds. Comments: Right radial cath access site soft, nontender, no hematoma, no bruit, no ecchymosis Neurological: General: No focal deficit present. Mental Status: He is alert and oriented to person, place, and time. Psychiatric: Mood and Affect: Mood normal. Behavior: Behavior normal. Thought Content: Thought content normal. Judgment: Judgment normal. Lab Results Labs Reviewed BASIC METABOLIC PANEL - Abnormal Result Value Sodium 138 Potassium 3.5 Chloride 105 CO2 26 BUN 11 Creatinine 0.91 Glucose 114 (*) Calcium 8.7 Anion Gap 11 eGFR 89.0 BUN/Creatinine Ratio 12.1 CBC - Abnormal Auto WBC 7.25 RBC 4.55 Hemoglobin 14.6 Hematocrit 41.6 MCV 91.4 MCH 32.1 MCHC 35.1 (*) RDW 12.7 Platelets 239 ACTIVATED CLOTTING TIME - Abnormal Activated Clotting Time 352 (*) ACTIVATED CLOTTING TIME - Abnormal Activated Clotting Time 294 (*) Issues Requiring Follow-Up None Outpatient Follow-Up Future Appointments Date Time Provider Department Center 10/14/2024 9:00 AM Eliel Shah CNP [facility] Test Results Pending At Discharge None I spent 30 minutes of total time on the day of the visit. This time was spent preparing for the visit, obtaining and reviewing any outside history/data, taking a history, performing an exam/evaluation, counseling and educating the patient/family about the diagnosis and plan, performing medical decision making, referring to and communicating with other health care referrals, independently interpreting results and documenting in the EMR, and coordinating care. Please see the additional documentation in this note for specific details. Eliel Shah APRN-[facility] Cardiovascular Medicine CBC Collected: 09/15/2024 9:37 AM Status: UN K Source: [facility] TYPE CODE TESTS RESULT OUT OF RANGE REFERENCE UNITS LAB [id number] LEUKOCYTES(10*3/ U L) IN BLOOD BY AUTOMATED COUNT 7.25 4.00-10.60 10*3/uL LAB [id number] ERYTHROCYTES (10*6/UL) IN BLOOD BY AUTOMATED COUNT 4.55 4.20-5.70 10*6/uL LAB [id number] HEMOGLOBIN (G/DL ) IN BLOOD 14.6 13.0-17.0 g/dL LAB [id number] HEMATOCRIT (%) I N BLOOD BY AUTOMATED COUNT 41.6 39.0-50.0 % LAB [id number] ERYTHROCYTE MEAN CORPUSCULAR VOLUME (FL) BY AUTOMATED COUNT 91.4 82.0-98.0 fL LAB [id number] ERYTHROCYTE MEAN CORPUSCULAR HEMOGLOBIN (PG) BY AUTOMATED COUNT 32.1 27.0-33.0 pg LAB [id number] ERYTHROCYTE MEAN CORPUSCULAR HEMOGLOBIN CONCENTRATION (G/DL) BY AUTOMATED 35.1 High 32.0-35.0 g/dL LAB [id number] ERYTHROCYTE DISTRIBUTION WIDTH (RATIO) BY AUTOMATED COUNT 12.7 11.5-15.0 % LAB [id number] PLATELETS (10*3/UL) IN BLOOD AUTOMATED COUNT 239 150-400 10*3/uL Performed By: #### [id number] ## ## [facility] [address] [place] [address] BASIC METABOLIC PANEL Collected: 2024 9:37 AM Status: UNK Source: [facility] TYPE CODE TESTS RESULT OUT OF RANGE REFERENCE UNITS LAB [id number] SODIUM (MMOL/L) IN SER/PLAS 138 136-145 mmol/L LAB [id number] POTASSIUM (MMOL/L) IN SER/PLAS 3.5 3.5-5.1 mmol/L LAB [id number] CHLORIDE (MMOL/L) IN SER/PLAS 105 98-107 mmol/L LAB [id number] CARBON DIOXIDE, TOTAL (MMOL/L) IN SER/PLAS 26 21-31 mmol/L LAB [id number] UREA NITROGEN (MG/DL) IN SER/PLAS 11 7-25 mg/dL LAB [id number] CREATININE (MG/DL) IN SER/PLAS 0.91 0.70-1.30 mg/dL LAB [id number] GLUCOSE (MG/DL) IN SER/PLAS 114 High 70-100 mg/dL LAB [id number] CALCIUM (MG/DL) IN SER/PLAS 8.7 8.6-10.3 mg/dL LAB [id number] ANION GAP IN SER/PLAS 11 7-20 mmol/L LAB [id number] GLOMERULAR FILTRATION RATE ML/MIN/1.73 SQ M.PREDICTED 89.0 >60.0 mL/min/ 1.73m*2 Result Comment: The [facility]???s estimated glomerular filtration rate (eGFR) will no longer include consideration of race in its calculation. The National Kid[employer] Foundation???s eGFR Task Force developed new recommendations for the estimation of the glomerular filtration rate in the [place] They recommend immediate implementation of the new equation refit without the race variable in all laboratories because the calculation does not include race. In addition to not including race in the calculation and reporting, it included diversity in its development, and has acceptable performance characteristics and potential consequences that do not disproportionately affect any one group of individuals. LAB [id number] UREA NITROGEN/CREA TININE (MASS RATIO) IN SER/PLAS 12.1 NA Performed By: #### [id number] ### # [facility] [address] [place] [address] 30 Observed: 09/15/2024 4:07 AM Status: COMPLETED Source: [facility] The patient is Moderately St able - Low risk of patient condition declining or worsening The patient's goals for the shift include comfort The clinical goals for the shift include VSS, comfort 30 Observed: 09/14/2024 5:50 PM Status: COMPLETED Source: [facility] The patient is Moderately St able - Low risk of patient condition declining or worsening The patient's goals for the shift include comfort The clinical goals for the shift include vs wnl, cath checks wnl, pain free Problem: Pain - Adult Goal: Verbalizes/displays adequate comfort level or baseline comfort level Outcome: ProgressingProblem: Safety - Adult Goal: Free from fall injury Outcome: ProgressingProblem: Discharge Planning Goal: Discharge to home or other facility with appropriate resources Outcome: ProgressingProblem: Chronic Conditions and Co-morbidities Goal: Patient's chronic conditions and co-morbidity symptoms are monitored and maintained or improved Outcome: Progressing NURSNOTE Observed: 09/14/2024 2:21 PM Status: COMPLETED Source: [facility] Report given to ANGELA Lemons RN RN notified RN of pts procedural intervention site, allergies, IV location/status, and medications given during the procedure. Any diagnostics, abnormal labs, abnormal assessment findings, orders and safety concerns/issues were reviewed. RN encouraged RN receiving handoff to voice any questions or concerns, and answered any questions or concerns if verbalized. RN verbalizes the pt will be coming up to the floor soon. ANES Observed: 09/14/2024 12:08 PM Status: COMPLETED Source: [facility] Attestation signed by Alexis Lopez MD at 09/14/2024 12:13 PM Alexis Lopez MD, MPH, [facility], [facility], [facility] Interventional Cardiology Pager Email: [email or web address] Patient: Bryant Perez Pre-sedation Evaluation: Moderate, conscious sedation for coronary angiography. History of Present Illness: Bryant Perez is a 74 y.o. male with medical history notable for known coronary artery disease; for this he has had prior PCI with MARIA C placement to the diag as well as RCA. Later found to have in stent restenosis of the RCA stent, status post restenting. Mr Perez presented to our clinic with concern for chest tightness on exertion. For this, stress testing was pursued and revealed a moderate inferior defect. Thus, he was referred for coronary angiography. At the time of evaluation in pre-procedure, Mr Perez was chest pain free and reported no interval episodes since his outpatient visit with us. Denied dyspnea, palpitations, nausea, diaphoresis. Medical History[1] Principle problems: Patient Active Problem List Diagnosis Date Noted CAD in grand traverse artery 08/01/2022 Mixed hyperlipidemia 08/01/2022 Benign essential HTN 08/01/2022 Silent myocardial infarction (CMS/HCC) 08/01/2022 Edema of lower extremity 07/13/2020 Abnormal stress test 09/02/2024 Angina pectoris, unstable (CMS/HCC) 09/02/2024 Allergies: Allergies[2] MEDIA COORDINATOR/Current Medications: Prescriptions Prior to Admission[3] Current Medications[4] Past Surgical History: has a past surgical history that includes Cardiac catheterization; Coronary stent placement; and Retinal detachment surgery. Recent sedation/surgery (24 hours) No Review of Systems: Please check all that apply: Cardiac Disease test completed prior to procedure on any menstruating female: NPO guidelines met: Yes Physical Exam Airway Mallampati: III TM distance: >3 FB Cardiovascular Rhythm: regular Rate: normal Dental Pulmonary Plan ASA 3 Moderate Mr Perez is agreeable to proceed with coronary angiography. Consent for blood products obtained. Risks, benefits, and alternatives to procedure discussed with patient in detail who expressed understanding and agreed to proceed. Risks discussed include bleed, infection, kidney damage/failure, stroke, heart attack, . [1] Past Medical History: Diagnosis Date Coronary artery disease Hyperlipidemia Hypertension Silent myocardial ischemia [2] No Known Allergies [3] Medications Prior to Admission Medication Sig Dispense Refill Last Dose/Taking amLODIPine (Norvasc) 10 mg tablet amlodipine 10 mg tablet 09/14/2024 Morning aspirin 81 mg EC tablet Take 81 mg by mouth in the morning. 09/14/2024 Morning atorvastatin (Lipitor) 80 mg tablet atorvastatin 80 mg tablet 09/14/2024 Morning carvedilol (Coreg) 25 mg tablet Take 25 mg by mouth with breakfast and with evening meal. 09/14/2024 Morning clopidogrel (Plavix) 75 mg tablet Take 75 mg by mouth in the morning. 09/14/2024 Morning losartan (Cozaar) 100 mg tablet losartan 100 mg tablet 09/13/2024 nitroglycerin (Nitrostat) 0.4 mg SL tablet nitroglycerin 0.4 mg sublingual tablet (Patient not taking: Reported on 09/14/2024) Not Taking [4] Current Facility-Administered Medications Medication Dose Route Frequency Provider Last Rate Last Admin heparin irrigation 2 units/mL in NS PRN Alexis Lopez MD 2,000 mL at 09/14/24 1154 sodium chloride 0.9 % infusion Continuous PRN Alexis Lopez MD 100 mL/hr at 09/14/24 1154 100 mL/hr at 09/14/24 1154 HP Observed: 09/14/2024 12:03 PM Status: COMPLETED Source: [facility] Attestation signed by Alexis Lopez MD at 09/14/2024 12:13 PM By using the attestations below, the signing clinician agrees that I have read and verify that the documentation has been personally reviewed by me and ensure that the documentation accurately reflects the encounter. GC: I personally saw this patient on the day of the encounter, performed the ayala portion(s) of the service and participated in the management and confirm the resident's documentation. Please note there may be an additional personal documentation from me. Additional Comments: Alexis Lopez MD, MPH, [facility], [facility], [facility] Interventional Cardiology Pager Email: [email or web address] History Of Present Illness Bryant Perez is a 74 y.o. male with medical history notable for known coronary artery disease; for this he has had prior PCI with MARIA C placement to the diag as well as RCA. Later found to have in stent restenosis of the RCA stent, status post restenting. Mr Perez presented to our clinic with concern for chest tightness on exertion. For this, stress testing was pursued and revealed a moderate inferior defect. Thus, he was referred for coronary angiography. At the time of evaluation in pre-procedure, Mr Perez was chest pain free and reported no interval episodes since his outpatient visit with us. Denied dyspnea, palpitations, nausea, diaphoresis. Past Medical History Medical History[1] Surgical History Surgical History[2] Social History Social History Socioeconomic History Marital status: Single Spouse name: Not on file Number of children: Not on file Years of education: Not on file Highest education level: Not on file Occupational History Not on file Tobacco Use Smoking status: Never Smokeless tobacco: Never Substance and Sexual Activity Alcohol use: Yes Comment: occasional Drug use: Not on file Sexual activity: Not on file Other Topics Concern Not on file Social History Narrative Not on file Social Drivers of Health Financial Resource Strain: Not on file Food Insecurity: Not on file Transportation Needs: Not on file Physical Activity: Not on file Stress: Not on file Social Connections: Not on file Intimate Partner Violence: Unknown (04/25/2023) [place] Safety & Environment Fear of Current or Ex-Partner: Not on file Emotionally Abused: Not on file Physically Abused: Not on file Sexually Abused: Not on file Physically or Sexually Abused: Not on file Housing Stability: Not on file Family History Family History[3] Allergies Allergies[4] Medications Prescriptions Prior to Admission[5] Review of Systems Constitutional: Negative for chills and fever. Respiratory: Negative for chest tightness and shortness of breath. Cardiovascular: Negative for chest pain and palpitations. Gastrointestinal: Negative for abdominal pain and nausea. Last Recorded Vitals Visit Vitals BP (!) 170/93 Pulse 73 Resp 16 Ht 1.778 m (5' 10 ) Wt 89.8 kg (198 lb) SpO2 99% BMI 28.41 kg/m??? Smoking Status Never BSA 2.11 m??? Physical Exam Constitutional: General: He is not in acute distress. Cardiovascular: Rate and Rhythm: Normal rate and regular rhythm. Pulses: Normal pulses. Heart sounds: Normal heart sounds. Pulmonary: Effort: Pulmonary effort is normal. Breath sounds: Normal breath sounds. Abdominal: General: Abdomen is flat. Palpations: Abdomen is soft. Musculoskeletal: Right lower leg: No edema. Left lower leg: No edema. Skin: General: Skin is warm and dry. Neurological: Mental Status: He is alert. Relevant Lab Results No results found for: NA , K , CL , CO2 , BUN , CREATININE , GLUCOSE , CALCIUM , ANIONGAP , EGFR , BCR Relevant Imaging Results Electrocardiogram, 12-lead Sinus rhythm with occasional Premature ventricular complexes Minimal voltage criteria for LVH, may be normal variant ( Sokolow-Aguillon ) Borderline ECG When compared with ECG of 23-OCT-2010 19:15, T wave inversion no longer evident in Lateral Assessment & Plan Abnormal stress test Angina pectoris, unstable (CMS/HCC) Active Problems: Abnormal stress test Angina pectoris, unstable (CMS/HCC) #Coronary artery disease with prior MARIA C to diag and RCA, c/b RCA ISR s/p restenting #Chest tightness with exertion #Abnormal stress test, inferior defect #Chronic kidney disease stage 1 Plan to proceed with coronary angiography. Mr Perez was agreeable to proceed. Consent for blood products obtained. Risks, benefits, and alternatives to procedure discussed with patient in detail who expressed understanding and agreed to proceed. Risks discussed include bleed, infection, kidney damage/failure, stroke, heart attack, . Further recommendations pending angiography findings. [1] Past Medical History: Diagnosis Date Coronary artery disease Hyperlipidemia Hypertension Silent myocardial ischemia [2] Past Surgical History: Procedure Laterality Date CARDIAC CATHETERIZATION CORONARY STENT PLACEMENT RETINAL DETACHMENT SURGERY [3] Family History Problem Relation Name Age of Onset Coronary artery disease Other Diabetes Other [4] No Known Allergies [5] Medications Prior to Admission Medication Sig Dispense Refill Last Dose/Taking amLODIPine (Norvasc) 10 mg tablet amlodipine 10 mg tablet 09/14/2024 Morning aspirin 81 mg EC tablet Take 81 mg by mouth in the morning. 09/14/2024 Morning atorvastatin (Lipitor) 80 mg tablet atorvastatin 80 mg tablet 09/14/2024 Morning carvedilol (Coreg) 25 mg tablet Take 25 mg by mouth with breakfast and with evening meal. 09/14/2024 Morning clopidogrel (Plavix) 75 mg tablet Take 75 mg by mouth in the morning. 09/14/2024 Morning losartan (Cozaar) 100 mg tablet losartan 100 mg tablet 09/13/2024 nitroglycerin (Nitrostat) 0.4 mg SL tablet nitroglycerin 0.4 mg sublingual tablet (Patient not taking: Reported on 09/14/2024) Not Taking ORDERS ONLY Observed: 09/02/2024 12:00 AM Status: COMPLETED Source: [facility] [id number] Bryant Perez M Date Provider Department Center 09/02/2024 928-LIAM ANNIE SALLY [facility] Family History Problem Relation Age of Onset Coronary artery disease Other Diabetes Other Family Status - Relation Status Age at Other ORDERS ONLY Observed: 08/27/2024 12:00 AM Status: COMPLETED Source: [facility] [id number] Bryant Perez [birth year] M Date Provider Department Center 08/27/2024 [id number], HISTORICAL SALLY [facility] Family History Problem Relation Age of Onset Coronary artery disease Other Diabetes Other Family Status - Relation Status Age at Other PROGRESS Observed: 07/07/2024 1:00 PM Status: COMPLETED Source: [facility] CARDIOLOGY PROGRESS NOTE HPI: Bryant Perez is a 74 y.o. male here for No chief complaint on file. Patient states after eating if he walks he feels pressure in his chest, denies SOB or any other symptoms when chest pressure starts. HPI routine f/U for CAD, silent [place], HTN, and HPL Denied chest pain, shortness of breath, orthopnea, or palpitations Overall states he is feeling very well and denied an activity limiting symptoms Update 07/07/2024: The patient does not get pain per se; however he states he has chest pressure in the central part of his chest only if he walks after a heavy meal. He can walk without limitation and indeed exercises at cardiac rehab here in the [facility] as long as he has not had a meal beforehand. Denies orthopnea, paroxysmal, dyspnea, or lower extremity edema. Review of Systems Constitutional: Negative. Respiratory: Negative. Cardiovascular: Positive for chest pain. Neurological: Negative. All other systems reviewed and are negative. Visit Vitals Smoking Status Never No Known Allergies Medications: Current Outpatient Medications [...] echo 12/04/2010 Heart cath/PCI 10/2010 heart cath/PCI Stress test 2021: Nonischemic Assessment/Plan: Coronary artery disease, history of PCI and stent placement Chest pain Dyslipidemia Essential hypertension Plan: Continue optimal medical therapy for coronary artery disease including dual antiplatelet therapy, high intensity statin therapy, a beta-gary and a RAAS inhibitor Given his recent worsening chest discomfort after meals when he walks, I have recommended a treadmill Cardiolite stress test We will obtain a complete echocardiogram Further recommendations pending the above Alexis Lopez MD, MPH, FACC, [facility], [facility] Interventional Cardiology Pager Email: [email or web address] OFFICE VISIT Observed: 07/07/2024 1:00 PM Status: COMPLETED Source: [facility] [id number] Bryant Perez [birth year] M Date Provider Department Center 07/07/2024 ALEXIS HUANG CARD [facility] Family History Problem Relation Age of Onset Coronary artery disease Other Diabetes Other Family Status - Relation Status Age at Other Level of Service:[address] [place] OFFICE/OUTPATIENT ESTABLISHED MOD MDM 30 MIN ALLERGIES DATE TYPE / CODE NAME / CODE REACTION SEVERITY SOURCE SYSTEMIC/[id number]( SNOMED CT) NO KNOWN ALLERGIES [facility] ENCOUNTERS ADMIT/DISCHARGE ACCOUNT NUMBER ADMITTING ENCOUNTER CLASS LOCATION SOURCE 10/14/2024/10/15/19 [id number] Ambulatory Building:[facility] 09/14/2024 [id number] Ambulatory Building:[facility] 09/14/2024 [id number] Ambulatory Building:[facility] 09/14/2024/09/16/19 [id number] ALEXIS LOPEZ Inpatient Encounter Building:[facility] URoom: 3105Bed: 3105-01 [facility] 07/07/2024/07/08/19 [id number] Ambulatory Building:[facility] PAYERS ENCOUNTER GUARANTOR PAYER [employer]BSCRIBER SOURCE 10/14/2024 Primary Insurance:MEDICAREPol icy Number: [id number] Date:9238-03-19Jvwn Name:Medicare TERRENCE A NUFERDOB: [id number] [place] [address] [facility] 10/14/2024 Secondary Insurance:AARPPolicy Number: [id number] Date:2022-03-04 BRYANT FLEMINGB: [id number] [address] [place] [address] [facility] 09/14/2024 Primary Insurance:MEDICAREPol icy Number: [id number] Date:4069-11-90Wdhl Name:Medicare TERRENCE A NUFERDOB: [id number] [address] [facility], [address] 09/14/2024 Secondary Insurance:AARPPolicy Number: [id number] Date:2022-03-04 BRYANT VARGASFERDOB: [id number] [address] [facility], [address] 09/14/2024 Primary Insurance:MEDICAREPol icy Number: [id number] Date:9250-21-83Tvaj Name:Medicare TERRENCE A NUFERDOB: [id number] [address] [facility], [address] 09/14/2024 Secondary Insurance:AARPPolicy Number: [id number] Date:2022-03-04 BRYANT VARGASFERDOB: [id number] [address] [facility], [address] 09/14/2024 Primary Insurance:MEDICAREPol icy Number: [id number] Date:8571-06-81Wipy Name:Medicare TERRENCE A NUFERDOB: [id number] [address] [facility], [address] 09/14/2024 Secondary Insurance:AARPPolicy Number: [id number] Date:2022-03-04 BRYANT PEREZDOB: [id number] [address] [facility], [address] 07/07/2024 Primary Insurance:MEDICAREPol icy Number: [id number] Date:0542-03-05Ghce Name:Medicare TERRENCE NUFERDOB: [id number] [facility], [address] 07/07/2024 Secondary Insurance:AARPPolicy Number: [id number] Date:2022-03-04 BRYANT VARGASFERDOB: [id number] [facility], [address] [facility]
--- OUTSIDE RECORDS SUMMARY | 2024-11-28 09:22 | XMS_ITS | Clinical Summary ---
Author Organization [facility] Address [address] [place] [address] Care Team Providers Care Security Installation Technician Name Role Phone Patsy Escalante MD Primary Care Provider [phone] Allergies No known active allergies Medications amLODIPine (Norvasc) 10 mg tablet amlodipine 10 mg tablet Active atorvastatin (Lipitor) 80 mg tablet atorvastatin 80 mg tablet Active carvedilol (Coreg) 25 mg tablet Take 25 mg by mouth with breakfast and with evening meal. Active losartan (Cozaar) 100 mg tablet losartan 100 mg tablet Active aspirin 81 mg EC tablet Take 81 mg by mouth in the morning. Active clopidogrel (Plavix) 75 mg tablet Take 75 mg by mouth in the morning. Active nitroglycerin (Nitrostat) 0.4 mg SL tabletIndicatio ns:Coronary artery disease involving kenaitze coronary artery of kenaitze heart without angina pectoris Place 1 tablet (0.4 mg) under the tongue every 5 (five) minutes if needed for chest pain. 30 tablet 3 5 10/15/19 26 Active Active Problems Problem Noted Date Diagnosed Date Coronary artery disease due to calcified coronar y lesion 09/14/2024 Abnormal stress test 09/02/2024 CAD in kenaitze artery 08/01/2022 Assessment & Plan (07/24/2023 1:18 [...] about typical and no worse than usual Resolved Problems Problem Noted Date Diagnosed Date Resolved Date Angina pectoris, unstable 09/02/2024 Encounters Date Type Department Care Team Description 10/14/2024 9:00 AM EDT Office Visit [address] [address] Charmaine Shah CNP Coronary artery disease involving kenaitze coronary artery of kenaitze heart without angina pectoris (Primary Dx); Abnormal stress test; S/P right coronary artery (RCA) stent placement; Benign essential HTN; Mixed hyperlipidemia 09/14/2024 11:30 AM EDT - 09/14/2024 12:30 PM EDT Surgery [facility] [address] [place] [address] Alexis Lopez MD Coronary angiography 09/14/2024 9:10 AM EDT - 09/15/2024 1:06 PM EDT Hospital Encounter [facility] [address] [place] [address] Alexis Lopez MD Coronary artery disease due to calcified coronary lesion (Primary Dx); Abnormal stress test; Angina pectoris, unstable (CMS/HCC); CAD in kenaitze artery Discharge Disposition: Home or Self Care (01) 09/14/2024 Travel 09/02/2024 Orders Only [facility] [address] [place] [address] Deborah De Luna MA Abnormal stress test (Primary Dx); Angina pectoris, unstable (CMS/HCC) from Last 3 Months Family History Medical History Relation Name Comments Diabetes Father Breast cancer Mother Coronary artery disease Mother Diabetes Mother Coronary artery disease Other Diabetes Other Relation Name Status Comments Father Mother Other Social History Tobacco Use Types Packs/Day Years Used Date Smoking Tobacco: Never Smokeless Tobacco: Never Tobacco Cessation:Counseling Given: Not Answered Alcohol Use Standard Drinks/Week Comments Yes 0 (1 standard drink = 0.6 oz pur e alcohol) occasional Abazab Utilities Answer Date Recorded In the past 12 months has e [employer], gas, oil, or water [employer] threatened to shut off services in your home? No 09/14/2024 Humiliation, Afraid, Rape, and Kick questionnair e Answer Date Recorded Within the last year, have y ou been afraid of your partner or ex-partner? No 09/14/2024 Emotionally Abused Not on file 09/14/2024 Physically Abused Not on file 09/14/2024 Sexually Abused Not on file 09/14/2024 Overall Financial Resource Strain (CARDIA) Answe r Date Recorded How hard is it for you to pa y for the very basics like food, housing, medical care, and heating? Not very hard 09/14/2024 Transportation Answer Date Recorded In the past 12 months, has l ack of transportation kept you from medical appointments or from getting medications? No 09/14/2024 Lack of Transportation (Non-Medical) Not on file 09/14/2024 Housing Stability Vital Sign Answer Alejo e Recorded In the last 12 months, was t here a time when you were not able to pay the mortgage or rent on time? No 09/14/2024 Number of Times Moved in the Last Year Not on fi le 09/14/2024 At any time in the past 12 m [facility], were you homeless or living in a half-way (including now)? No 09/14/2024 Hunger Vital Sign Answer Date Recorded Within the past 12 months, y ou worried that your food would run out before you got the money to buy more. Never true 09/15/19 25 Ran Out of Food in the Last Year Not on file 09/14/2024 Sex and Gender Information Value Date Recorded Sex Assigned at Male 09/15/2024 5:41 AM EDT Legal Sex Male 10:44 PM EDT Gender Identity Male 09/15/2024 5:41 AM EDT Sexual Orientation Bisexual 09/15/2024 5: 41 AM EDT Last Filed Vital Signs Vital Sign Reading Time Taken Comments Blood Pressure 134/77 10/14/2024 8:44 AM EDT Pulse 64 10/14/2024 8:44 AM EDT Temperature 36.3 C (97.3 F) 09/15/2024 12:01 PM EDT Respiratory Rate 17 09/15/2024 12:34 PM EDT Oxygen Saturation 99% 10/14/2024 8:44 AM EDT Inhaled Oxygen Concentration - - Weight 92.1 kg (203 lb) 10/14/2024 8:44 AM EDT Height 177.8 cm (5' 10 ) 10/14/2024 8:44 AM EDT Body Mass Index 29.13 10/14/2024 8:44 AM EDT Plan of Treatment Health Maintenance Due Date Last Done Comments CT Colonography 1951 Colonoscopy 1950 Colorectal Cancer Screening 1950 FIT-DNA 1951 FIT 1951 FOBT 1950 Medicare Annual Wellness (AWV) 1950 Sigmoidoscopy 1951 Depression Screening 1963 Zoster Vaccines (1 of 2) 2001 COVID-19 Vaccine ( season) 2024 02/17/2024, 02/12/2023, 01/09/2022, Additional history exists Influenza Vaccine (#1) 2024 , 12/21/2021, 12/17/2017, Additional history exists Fall Risk Screening 09/15/2025 09/15/2024 Adult Tetanus 04/25/2034 04/25/2024 Pneumococcal Vaccine: 50+ [...] on patient's age to complete this topic Medical Devices Implanted Type Area Air Gun Operator Device Identifier Shelf Expiration Date Model / Serial / Lot Stent,Synergy Mr 3.00 X 28 - [id number] Implanted:Qty : 1 on 09/14/2024 by Alexis Lopez MD at [facility] Eluting Stent Right: Heart ComEd [id number] 05/12/2026 [id number] / / [id number] Procedures Procedure Name Priority Date/Time Associated Diagnosis Comments CBC Pending Discharge 09/15/2024 9:37 AM EDT BASIC METABOLIC PANEL Pending Discharge 09/15/2024 9:37 AM EDT ACTIVATED CLOTTING TIME Routine 09/14/2024 3:15 PM EDT ACTIVATED CLOTTING TIME Routine 09/14/2024 3:15 PM EDT ECG 12-LEAD Today 09/14/2024 1:33 PM EDT INTRACORONARY LITHOTRIPSY Routine 09/14/2024 1:05 PM EDT Abnormal stress test Angina pectoris, unstable (CMS/HCC) PERC CORONARY INTERVENTION Routine 09/14/2024 1:05 PM EDT Abnormal stress test Angina pectoris, unstable (CMS/HCC) CORONARY ANGIOGRAPHY Routine 09/14/2024 1:05 PM EDT Abnormal stress test Angina pectoris, unstable (CMS/HCC) ECG 12-LEAD Routine 09/14/2024 10:10 AM EDT from Last 3 Months Results * (ABNORMAL) CBC (09/15/2024 9:37 AM EDT) Auto WBC 7.25 4.00 - 10.60 10*3/uL 09/15/2024 10:14 AM T [facility] RBC 4.55 4.20 - 5.70 10*6/uL 09/15/2024 10:14 AM T [facility] Hemoglobin 14.6 13.0 - 17.0 g/dL 09/15/2024 10:14 AM [facility] Hematocrit 41.6 39.0 - 50.0 % 09/15/2024 10:14 AM [facility] MCV 91.4 82.0 - 98.0 fL 09/15/2024 10:14 AM [facility] MCH 32.1 27.0 - 33.0 pg 09/15/2024 10:14 AM [facility] MCHC 35.1(H) 32.0 - 35.0 g/dL 09/15/2024 10:14 AM [facility] RDW 12.7 11.5 - 15.0 % 09/15/2024 10:14 AM [facility] Platelets 239 150 - 400 10*3/uL 09/15/2024 10:14 AM [facility] Blood Venous blood specimen / Unknown Venipuncture / Unknown 09/15/2024 9:37 AM EDT 09/15/2024 10:08 AM EDT us Charmaine Jorgensencker TRANSMISSION DESIGN ENGINEER LAB BLOOD ORDERABLES Final Re sult [facility] [address] [place], [place] [id number] * (ABNORMAL) Basic metabolic panel (09/15/2024 9:37 AM EDT) Sodium 138 136 - 145 mmol/L 09/15/2024 10:31 AM EDT [facility] Potassium 3.5 3.5 - 5.1 mmol/L 09/15/2024 10:31 AM EDT [facility] Chloride 105 98 - 107 mmol/L 09/15/2024 10:31 AM EDT [facility] CO2 26 21 - 31 mmol/L 09/15/2024 10:31 AM EDT [facility] BUN 11 7 - 25 mg/dL 09/15/2024 10:31 AM EDT [facility] Creatinine 0.91 0.70 - 1.30 mg/dL 09/15/2024 10:31 AM EDT [facility] Glucose 114(H) 70 - 100 mg/dL 09/15/2024 10:31 AM EDT [facility] Calcium 8.7 8.6 - 10.3 mg/dL 09/15/2024 10:31 AM EDT [facility] Anion Gap 11 7 - 20 mmol/L 09/15/2024 10:31 AM EDT [facility] eGFR 89.0 >60.0 mL/min/1. 73m*2 09/15/2024 10:31 AM T [facility] Comment:[facility] s estimated glomerular filtration rate (eGFR) will no longer include consideration of race in its calculation. The National Kid[employer] s eGFR Task Force developed new recommendations for [...] disproportionately affect any one group of individuals. BUN/Creatinine Ratio 12.1 09/01 10:31 AM EDT [facility]) Blood Venous blood specimen / Unknown Venipuncture / Unknown 09/15/2024 9:37 AM EDT 09/15/2024 10:07 AM EDT us Charmaine Shah [facility] LAB BLOOD ORDERABLES Final Re sult Performing Organization Address City/[facility]/ZIP Co de Phone Number [facility]) [address] [place] [phone] * (ABNORMAL) Activated clotting time (09/14/2024 3:15 PM EDT) Only the most recent of2 resultswithin the time period is included. Pathologist [facility] Activated Clotting Time 294(H) 82 - 152 s 09/14/2024 3:15 PM EDT [facility]) Blood Venous blood specimen / Unknown 09/14/2024 3:15 PM EDT 09/14/2024 3:15 PM EDT Alexis Lopez MD LAB POINT OF CARE TE ST DOCKED DEVICE UNSOLICITED RESULTS Final Result Performing Organization Address City/[facility]/ZIP Co de Phone Number [facility]) [address] [place] [phone] * ECG 12 lead (09/14/2024 1:33 PM EDT) Only the most recent of2 resultswithin the time period is included. Ventricular Rate 68 BPM GE MUSE Atrial Rate 68 BPM GE MUSE [place] Interval 160 ms GE MUSE QRS DURATION 86 ms GE MUSE QT Interval 416 ms GE MUSE QTC CALCULATION(BAZE TT) 442 ms GE MUSE P [place] 45 degrees GE MUSE R-[place] 15 degrees GE MUSE T Wave [place] 20 degrees GE MUSE 09/14/2024 1:22 PM EDT 09/15/2024 10:30 AM EDT Impressions GE MUSE - 09/15/2024 10:30 AM EDT Normal sinus rhythm Normal ECG When compared with ECG of 14-SEP-2024 09:43, (unconfirmed) Premature ventricular complexes are no longer Present Confirmed by Keya HERNANDEZ SAMER J. ([id number]) on 09/15/2024 10:30:11 AM Narrative Procedure Note Khris Hernandez MD - 09/15/2024 IMPRESSION: Normal sinus rhythm Normal ECG When compared with ECG of 14-SEP-2024 09:43, (unconfirmed) Premature ventricular complexes are no longer Present Confirmed by Keya HERNANDEZ SAMER J. ([id number]) on 09/15/2024 10:30:11 AM Alexis Lopez MD ECG ORDERABLES Final Result GE MUSE * CORONARY ANGIOGRAPHY, PERC CORONARY INTERVENTION, INTRACORONARY LITHOTRIPSY (09/14/2024 1:05 PM EDT) Anatomical Region Laterality Modality Other Addenda Addendum by Alexis Lopez MD on 09/14/2024 9:51 PM EDT Cardiovascular Laboratory Report FINAL IMPRESSIONS: Severe calcific [...] next 1 to 2 months in the [facility] cardiology office PROCEDURES: Ultrasound-guided access of the right radial artery, bilateral selective coronary angiography via a right radial approach, balloon angioplasty, angioscope angioplasty, shockwave intravascular lithotripsy and Synergy drug-eluting stent placement in the distal right coronary artery/posterior descending branch METHODS: After risks, benefits, and alternatives were explained, written informed consent was obtained. The patient was prepped and draped in usual sterile fashion over the right wrist and right groin. Local infiltration anesthesia was achieved of the right wrist. Using a micropuncture kit, access to the right radial artery was obtained. A 6 Mosotho glide sheath was inserted without difficulty. Difficulty advancing the JR catheter was encountered; therefore angiography was performed which revealed tortuosity. This was crossed using a soft angled Glidewire. The right coronary artery could not be engaged using the JR catheter. Therefore, bilateral selective coronary angiography was performed using a Tig catheter. After reviewing the images, it was elected to proceed with an interventional procedure. A 6 Mosotho AR-2 guide catheter was advanced over a J-wire and coaxially engaged into the right coronary ostium. A 0.014 run-through NS wire was advanced through the catheter, across the suspect stenosis, and positioned distally. Balloon angioplasty was performed using a 2.5 x 15 mm noncompliant balloon. This was followed by angioplasty using a 3.0 x 15 mm AngioSculpt balloon. Difficulty advancing the balloon was initially encountered and therefore a Guidezilla microcatheter was used. A residual waist in the lesion was seen. Therefore it was elected to proceed with intravascular lithotripsy. A 3.0 x 12 mm Shockwave balloon was used to deliver ultrasound along the length of the lesion. An inadequate result was treated using a 3.0 x 24 mm Synergy drug-eluting stent. Repeat images showed an optimal result. The wire was removed. Final angiography In orthogonal view show JACOBO-3 flow with no dissection thrombus or distal wire trauma. At this point it was elected to conclude the procedure. The catheters were removed. The radial sheath was removed with application of a TR band per protocol to achieve optimal hemostasis. FINDINGS: Hemodynamics: 110/72 [84] LEFT VENTRICULOGRAPHY: This was not performed. Ejection fraction is 57% by echocardiography. CORONARY ARTERIES: Left main coronary artery: This arises from the left coronary cusp and bifurcates into the left anterior descending and left circumflex coronary arteries. It is free of significant stenoses. Left anterior descending coronary artery: This shows luminal irregularities throughout and calcific plaque. It gives rise to a large branching first diagonal with evidence of a proximal to mid vessel stent with mild in-stent restenosis. There is evidence of left to left collaterals supplying the distally occluded left circumflex coronary artery. Left circumflex coronary artery: This shows evidence of a patent stent in the proximal portion with no significant in-stent restenosis. There is a minute first obtuse marginal followed by a large branching second obtuse marginal. This shows diffuse disease from the ostium to the midportion and estimated stenoses of 50 to 60%. The true circumflex is occluded in the AV groove just after giving rise to a prominent recurrent atrial branch. Right coronary artery: This is a large dominant vessel arising from the right coronary cusp giving rise to the posterior descending and posterolateral branches. There is evidence of a stent in the midportion of the vessel with 40% in-stent restenosis. Just distal to the stent there is a discrete 50% stenosis. Distally the previously placed stent at the crux shows 95 to 99% heavily calcific stenosis extending into the posterior descending branch. This was crossed, recannalized, and reduced to 0% by balloon angioplasty, intravascular lithotripsy, and placement of a 3.0 x 24 mm Synergy drug-eluting stent. The adjacent distal right coronary artery is pinched by the stent with preserved JACOBO flow. Distally there are luminal irregularities in caliber reduction INDICATIONS: Escalating angina, abnormal stress test Coronary Findings Diagnostic Dominance: Right Left Anterior Descending: There is moderate diffuse disease throughout the vessel. Left Circumflex: Third Obtuse Marginal Branch: 3rd Mrg filled by collaterals from 2nd Sept. 3rd Mrg filled by collaterals from Sept. Intervention Dist RCA lesion: Bifurcation intervention: Intervention successfully performed. Supplies Used: STENT,SYNERGY MR 3.00 X 28 Post-Intervention Lesion Assessment: There is a 0% residual stenosis post intervention. Alexis Lopez MD CV CARDIAC CATH PROCEDURES Edit ed Result - Final from Last 3 Months Insurance MEDICARE AARP Advance Directives * Full Code (Latest Code Status on File) Date Activated Date Inactivated Comments 09/14/2024 1:09 PM 09/15/2024 3:06 PM Care Teams Security Installation Technician Relationship Specialty Start Date End Date Patsy Escalante MD [address] [place] [address] #A PCP - General 08/01/22
--- OUTSIDE RECORDS SUMMARY | 2024-11-28 09:22 | XMS_ITS | Clinical Summary ---
Author Organization [facility] Healthcare Address [address] [place] [address] Care Team Providers Care Customer Experience Analyst Name Role Phone Unavailable Primary Care Provider Unavailabl e Social History Tobacco Use Types Packs/Day Years Used Date Smoking Tobacco: Never Assessed Sex and Gender Information Value Date Recorded Sex Assigned at Not on file Legal Sex Male 8:34 PM EDT Gender Identity Not on file Sexual Orientation Not on file Last Filed Vital Signs Vital Sign Reading Time Taken Comments Blood Pressure 137/83 03/17/2019 12:00 PM EST Pulse - - Temperature - - Respiratory Rate - - Oxygen Saturation - - Inhaled Oxygen Concentration - - Weight 94.3 kg (208 lb) 03/17/2019 12:00 PM EST Height 181.6 cm (5' 11.5 ) 03/17/2019 12:[address] Body Mass Index 28.61 03/17/2019 12:00 PM EST Plan of Treatment Not on file Insurance MEDICARE
--- OUTSIDE RECORDS SUMMARY | 2024-11-28 09:22 | XMS_ITS | Clinical Summary ---
Author Organization [employer] Address [id number] [address] [place] [address] Care Team Providers Care Drier Unloader Name Role Phone Patsy Escalante MD Primary Care Provider [phone] Allergies No known active allergies Medications carvedilol [...] 10 mg by mouth nightly. Active omega 3-gmm-ark-fish oil (FISH OIL) 300-1,000 mg capsule Take [...] , 12/13/2015 Medical Devices Implanted Type Area Steel Detailer Device Identifier Shelf Expiration Date Model / Serial / Lot Plt Bn 3 H Std Ti L Dst Volar Rad - Sna - [id number] Implanted:Qty: 1 on 03/18/2019 by Kirill Joshi DO at [facility] Plate Left: Wrist Arthrex 02/12/2025 AR-8916VSL- 03 / NA / NA Scr Bn 20mm 2.4mm Va St Sld - Sna - [id number] Implanted:Qty: 1 on 03/18/2019 by Kirill Joshi DO at [facility] Screw Left: Wrist Arthrex 02/12/2025 AR-8724V-20 / NA / NA Scr Bn 20mm 2.4mm Va Lck Smth - Sna - [id number] Implanted:Qty: 1 on 03/18/2019 by Kirill Joshi DO at [facility] Screw Left: Wrist Arthrex 02/12/2025 AR-8916VNC- 20 / NA / NA Scr Bn 24mm 2.4mm Va St Sld - Sna - [id number] Implanted:Qty: 2 on 03/18/2019 by Kirill Joshi DO at [facility] Screw Left: Wrist Arthrex 02/12/2025 AR-8724V-24 / NA / NA Scr Bn 26mm 2.4mm Va [address] Sld - Sna - [id number] Implanted:Qty: 1 on 03/18/2019 by Kirill Joshi DO at [facility] Screw Left: Wrist Arthrex 02/12/2025 AR-8724V-26 / NA / NA Scr Bn 28mm 2.4mm Va [address] Sld - Sna - [id number] Implanted:Qty: 1 on 03/18/2019 by Kirill Joshi DO at [facility] Screw Left: Wrist Arthrex 02/12/2025 AR-8724V-28 / NA / NA Scr Bn L14mm Od3.5mm Ti Shailesh Ank Ft Self Drl Sergo - Sna - [id number] Implanted:Qty: 2 on 03/18/2019 by Kriill Joshi DO at [facility] Screw Left: Wrist Arthrex 02/12/2025 AR-8935L-14 / NA / NA Scr Bn L14mm Od3.5mm Ti- Shailesh Self Drl Nonlocking Ft - Sna - [id number] Implanted:Qty: 1 on 03/18/2019 by Kirill Joshi DO at [facility] Screw Left: Wrist Arthrex 02/12/2025 AR-8935-14 / NA / NA Insurance MEDICARE [facility] Care Teams Drier Unloader Relationship Specialty [place] [address] [place] [id number] PCP - General Family Medicine 03/18/19
--- OUTSIDE RECORDS SUMMARY | 2024-11-28 09:22 | XMS_ITS | Clinical Summary ---
Author Organization [facility] Address [address] [place] [address], [address] [place] [address] Care Team Providers Care Hydraulic Technician Name Role Phone Unavailable Primary Care Provider [...]
[2024-11-28 10:23] LABS: Hematocrit 41.3 % (42.0-54.0); Hemoglobin 14.4 g/dL (14.0-18.0); Immature Granulocytes Abs Auto 0.03 10^3/uL (0.00-0.03); Immature Granulocytes Pct Auto 0.4 % (0.0-0.5); Lymphocytes Absolute Auto 2.3 10^3/uL (1.2-3.8); Mean Corpuscular HGB Conc 34.9 g/dL (29.9-35.2); Mean Corpuscular Hemoglobin 32.7 pg (25.9-34.0); Mean Corpuscular Volume 93.7 fL (80.0-94.0); Platelet Count 238 10^3/uL (150-450); Red Blood Count 4.41 10^6/uL (4.70-6.10); White Blood Count 8.4 10^3/uL (4.0-11.0)
[2024-11-28 11:59] LABS: Alanine Aminotransferase 31 U/L (16-63); Albumin Globulin Ratio 1.0; Albumin Level 3.7 g/dL (3.4-5.0); Alkaline Phosphatase 73 U/L (46-116); Anion Gap 12.0; Aspartate Amino Transferase 26 U/L (15-37); Blood Urea Nitrogen 13.0 mg/dL (7.0-18.0); Calcium 9.0 mg/dL (8.5-10.1); Carbon Dioxide 28.6 mmol/L (21.0-32.0); Chloride 107 mmol/L (98-107); Cholesterol 137 mg/dL (<=200); Estimated GFR (African America >60 (>=60 mL/min/1.73m^2); Estimated GFR (Non-African Ame >60 (>=60 mL/min/1.73m^2); Globulin 3.8 g/dL; Glucose 118 mg/dL (74-106); HDL Cholesterol 60 mg/dL (40-60); Potassium 3.6 mmol/L (3.5-5.1); Sodium 144 mmol/L (136-145); Total Protein 7.5 g/dL (6.4-8.2); Triglycerides 62 mg/dL (<=150); VLDL CHOLESTEROL 12.4 mg/dL
== END 2024-11-28 09:19 | disposition home or self-care (01) ==
LOC: LAB 09:20
PROVIDERS: PCP Family Medicine; Visit Provider Family Medicine
DX: I25.10 Atherosclerotic heart disease of native coronary artery without angina pectoris (principal); I10 Essential (primary) hypertension
CPT/HCPCS: 36415; 80053; 80061; 82043; 82570; 85025